=== PATIENT | male | born 1945 | race Caucasian/White ===

== ENCOUNTER 2020-11-30 11:31 | Outpatient (CLI) | payer MEDICARE, SELFPAY | END 2020-11-30 11:32 | disposition home or self-care (01) | LOC: ANHCOVIDVC 11:31 | PROVIDERS: PCP Family Medicine | DX: Z23 Encounter for immunization (principal) | CPT/HCPCS: 0001A; 91300 ==

== ENCOUNTER → 2020-12-09 10:25 | Outpatient (CLI) | payer MEDICARE, SELFPAY ==
--- NOTE | ~2020-12-09 | CT_ITS ---
EXAMINATION: CT brain wo con DATE: 12/09/2020 10:49 INDICATION: Headache. TECHNIQUE: Computed tomography (CT) of the head was performed without intravenous contrast. The mA wa s adjusted according to patient size. Iterative reconstruction technique was employed. The dose-lengt h product was 599.57 mGy-cm. COMPARISON: Head CT 11/16/2017 FINDINGS: There are scattered areas of low attenuation in the cerebral white matter, which is within normal limits for the patient's age. There is no intracranial hemorrhage, acute infarction, or abnorm al intracranial mass lesion. The ventricles are normal in size. There is mild mucosal thickening in t he paranasal sinuses. The mastoid air cells are normal. The orbits are normal. IMPRESSION: 1. Normal aging brain. Reviewed, dictated and finalized at location A. IMPRESSION: 1. Normal aging brain.
== END ==
PROVIDERS: PCP Family Medicine; Visit Provider Physician Assistant
DX: R51.9 Headache, unspecified (principal); I10 Essential (primary) hypertension; Z86.73 Personal history of transient ischemic attack (TIA), and cerebral infarction without residual deficits
CPT/HCPCS: 70450

== ENCOUNTER 2020-12-21 11:32 | Outpatient (CLI) | payer MEDICARE, SELFPAY | END 2020-12-21 11:33 | disposition home or self-care (01) | LOC: ANHCOVIDVC 11:32 | PROVIDERS: PCP Family Medicine | DX: Z23 Encounter for immunization (principal) | CPT/HCPCS: 0002A; 91300 ==

== ENCOUNTER 2021-07-29 13:34 | Outpatient (RCR) | payer MEDICARE, SELFPAY ==
[2021-07-29 14:14] VITALS: BP 112/65; PULSE 59; RESP 20; TEMP 36.5; O2SAT 98
[2021-07-29] MEDS: ACETAMINOPHEN 325 MG TABLET 650 MG PO (14:17)
[2021-07-29] MEDS: diphenhydrAMINE HCl CAP 25 MG CAPSULE PO (14:17)
[2021-07-29] MEDS: FAMOTIDINE 20 MG TABLET PO (14:17)
--- NOTE | 2021-07-29 15:14 | PC.NURSE ---
Patient received both Vidaao vaccines in November 2020
[2021-07-29 16:19] VITALS: BP 108/66; PULSE 58; RESP 20; TEMP 36.3; O2SAT 98
--- NOTE | 2021-07-30 13:33 | PC.NURSE ---
Attempted to call patient to follow-up regarding COVID antibody infusion yesterday. Patient was unavailable and a voicemail was left with a call back number for infusion center.
== END 2021-07-29 15:44 | disposition home or self-care (01) ==
LOC: AMCINF 13:34
PROVIDERS: PCP Physician Assistant; Referring Provider Physician Assistant; Visit Provider Internal Medicine Hematology & Oncology
DX: Z23 Encounter for immunization (principal); U07.1 COVID-19; I10 Essential (primary) hypertension; I25.10 Atherosclerotic heart disease of native coronary artery without angina pectoris; E11.9 Type 2 diabetes mellitus without complications
CPT/HCPCS: A9270; M0243; Q0243

== ENCOUNTER → 2021-09-16 12:08 | Outpatient (CLI) | payer MEDICARE, SELFPAY ==
--- NOTE | ~2021-09-16 | MR_ITS ---
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 Right facial numbness. TECHNIQUE: Magnetic resonance imaging (MRI) of the brain and brainstem was performed without and with 15 cc MultiHance intravenous contrast. Sequences included sagittal and axial T1-weighted SE, axial diffusion-weighted FS SE, axial T2*-weighted GRE, axial T2-weighted FLAIR Propeller, and axial T2-sita ghted Propeller. Apparent diffusion coefficient (ADC) maps were created. COMPARISON: MRI dated 11/17/[address] dated 12/09/2020 FINDINGS: The brain volume and ventricular system are within normal limits. The brain parenchymal si gnal intensity pattern and myers/white matter is normal and there is no evidence of hemorrhage, space occupying masses or infarctions. There are scattered mild periventricular and subcortical white matte r changes, most likely related to small vessel ischemic disease (microangiopathy). The flow signal voids of the major arterial structures about the [place] and within the dirk r dural venous sinuses appear grossly unremarkable and patent. The seventh and eighth cranial nerve complexes are normal. The mid sagittal image demonstrates a normal craniovertebral junction and jamel us callosum. The paranasal sinuses are grossly unremarkable. No abnormal contrast enhancement was appreciated. IMPRESSION: 1: No acute intracranial abnormality. 2: Chronic age-related findings. Reviewed, dictated and finalized at location A. D PREVENTION ANALYST
[2021-09-16 12:37] LABS: Estimated Glomerular Filt Rate 59
== END ==
PROVIDERS: PCP Physician Assistant
DX: R51.9 Headache, unspecified (principal); R20.0 Anesthesia of skin
CPT/HCPCS: 70553; A9577

== ENCOUNTER → 2022-05-25 14:48 | Outpatient (CLI) | payer MEDICARE, SELFPAY ==
--- NOTE | ~2022-05-25 | XR_ITS ---
EXAM: XR hip BI 2V w AP pelvis DATE: 05/25/2022 15:17 HISTORY: M25.551 - Pain in right hip . COMPARISON: 1019. FINDINGS: Normal mineralization. No fracture or dislocation. No lytic or blastic lesion. Mild superi or hip joint space narrowing, slightly greater on the right. Degenerative changes in the lower lumbar spine and pubic symphysis. Scattered pelvic enthesopathy. No erosion or periosteal change. Surgical clips or inflammatory markers over the midline pelvis. IMPRESSION: Mild bilateral hip osteoarthritis, slightly worse on the right. Reviewed, dictated and finalized at location K.
--- NOTE | ~2022-05-25 | XR_ITS ---
EXAMINATION: XR ankle RT min 3V, XR foot RT min 3V DATE: 05/25/2022 15:17 INDICATION: Right foot and ankle pain TECHNIQUE: 1. Anteroposterior, mortise, additional oblique and lateral view of the right ankle were obtained. 2. Dorsoplantar, two oblique and lateral views of the right foot were obtained. COMPARISON: None. FINDINGS: Diffuse osteopenia. Alignment of the right foot and ankle is normal. No fracture or osteochondral les ion. Prominent heterotopic ossification along the medial malleolus likely sequela of chronic deltoid ligament sprain. Mild osteoarthritis at the tibiotalar, first metatarsophalangeal and multiple tarsal metatarsal and interphalangeal joints. No ankle joint effusion. The soft tissues are unremarkable. IMPRESSION: 1. Mild polyarticular osteoarthritis at the right ankle, mid and forefoot. No acute osseous abnormali ty. 2. Prominent heterotopic ossification near the tip the medial malleolus likely sequela of chronic med ial ankle sprain. Reviewed, dictated and finalized at location A. IMPRESSION: 1. Mild polyarticular osteoarthritis at the right ankle, mid and forefoot. No a cute osseous abnormality. 2. Prominent heterotopic ossification near the tip the medial malleolus likely sequela of chronic medial ankle sprain.
== END ==
PROVIDERS: PCP Physician Assistant; Visit Provider Physician Assistant
DX: M16.0 Bilateral primary osteoarthritis of hip (principal); M19.071 Primary osteoarthritis, right ankle and foot
CPT/HCPCS: 73521; 73610; 73630

== ENCOUNTER 2022-07-02 17:51 | Observation (INO) | payer MEDICARE, SELFPAY ==
[2022-07-02] VITALS (8 sets, daily range): BP systolic 115–172; BP diastolic 53–76; PULSE 65–79; RESP 9–20; TEMP 36.4–36.6; O2SAT 96–100; BMI 26.1
--- NOTE | ~2022-07-02 | CT_ITS ---
EXAMINATION: CT abdomen pelvis wo con DATE: 07/02/2022 20:50 INDICATION: leukocytosis, low abdominal pain, nausea TECHNIQUE: Computed tomography (CT) of the abdomen and pelvis was performed without intravenous contr ast. Automated exposure control and iterative reconstruction technique were employed. The dose-length product was 471.78 mGy-cm. COMPARISON: 02/05/2016. FINDINGS: Lower thorax: Senescent change. Dependent atelectasis. Moderate hiatal hernia. Liver: Normal. Biliary/Gallbladder: Gallbladder is normal. No bile duct dilation. Pancreas: No mass or duct dilation. Spleen: Normal. Adrenals: 9 mm indeterminate right adrenal lesion, probably benign, requires no additional follow-up per ACR recommendations. Kidneys: Marked bilateral perinephric stranding. Mild bilateral hydronephrosis and periureteral stran ding, greater on the right. No suspicious mass. No obstructing stone. GI tract: No small or large bowel dilation. Appendix not visualized. Diverticulosis without diverticu litis. Mesentery/Peritoneum: No ascites, mass, or free air. Retroperitoneum: No mass. Atherosclerotic abdominal aortic and/or arterial calcifications. Pelvis: Marked prostatomegaly. Solis catheter in place. Prostate implants. The bladder is decompresse d and therefore not well evaluated. Soft Tissues: Soft tissues and body wall unremarkable. Bones: No acute osseous finding. IMPRESSION: Bilateral renal and collecting system stranding/inflammation may reflect ascending infection, with or without pyelonephritis. Reviewed, dictated and finalized at location K. IMPRESSION: Bilateral renal and collecting system stranding/inflammation may reflect ascend ing infection, with or without pyelonephritis.
--- NOTE | 2022-07-02 18:23 | ED.MALEGU ---
HPI - Male Genitourinary General Chief complaint: Urogenital-Male Stated complaint: inability to urinate Time Seen by Provider: 07/02/22 18:14 Source: patient and RN notes reviewed Mode of arrival: ambulatory Limitations: no limitations History of Present Illness HPI Narrative: This is a 77 year old male with history of BPH who presents for evaluation of difficulty urinating. He states starting around midnight he develop increased urgency and frequency to urinate. He describes decreased stream and he was having to strain to urinate. Throughout the night, he reports having to urinate every 10 minutes and he was only able to dribble urine. Today at 3 pm he felt like he needed to urinate but he was unable to urinate at all. He has been having lower abdominal pain and lower back pain today. He denies fever, chills, nausea or vomiting. He reports previous history of urinary retention. He states he feels like he has a urinary tract infection. Nursing staff reports patient had over 600 ml on bladder scan. Related Data Home Medications Medication Instructions Recorded Confirmed aspirin 81 mg tablet,delayed 81 mg PO DAILY 10/29/19 05/25/22 release coenzyme Q10 200 mg capsule 200 mg PO DAILY 10/29/19 05/25/22 multivitamin 1 tablet PO DAILY 10/29/19 05/25/22 Allergies Allergy/AdvReac Type Severity Reaction Status Date / Time dutasteride Allergy Unknown Unknown Verified 07/02/22 18:06 Iodinated Contrast Media Allergy Unknown Vomiting Verified 07/02/22 18:06 iodine Allergy Unknown Vomiting Verified 07/02/22 18:06 Mfqvoqt-RVI-GvM Reductase Allergy Unknown Muscle Verified 07/02/22 18:06 Inhibitor Cramps [Urajvpr-Hum-Cwi Reductase Inhibitor] codeine AdvReac Mild NAUSEA Verified 07/02/22 18:06 Contrast Media AdvReac Intermediate NAUSEA AND Uncoded 07/02/22 18:06 VOMITING AND ELEVATES BP Review of Systems Review of Systems: All systems reviewed & are unremarkable except as noted in HPI and below Constitutional: Constitutional: Denies chills, Denies fatigue and Denies fever(s) Cardiovascular: Cardiovascular: Denies chest pain Gastrointestinal: Gastrointestinal: Reports abdominal pain, Denies nausea and Denies vomiting Genitourinary: Genitourinary: Denies hematuria, Reports oliguria, Denies dysuria and Reports urinary frequency Musculoskeletal: Musculoskeletal: Reports back pain PMFSH Past Medical History Medical History (Updated 07/02/22 @ 21:43 by Addie Red MD) Elevated PSA Essential (primary) hypertension ROSINA (obstructive sleep apnea) Type 2 diabetes mellitus without complication, without long-term current use of insulin Urinary retention Surgical History Surgical History (Updated 07/02/22 @ 19:07 by Addie Red MD) H/O umbilical hernia repair Family History Family History Father Diabetes mellitus Family history of lung disease Hypertension Family history of chronic obstructive pulmonary disease Family history of type 2 diabetes mellitus Mother Hypertension Social History Social History Smoking packs per day: 1 Smoking cigarettes per day: 20.0 Years smoked: 20 Smoking pack-years: 20.00 Smoking status: Former smoker Tobacco type: cigarettes Second hand tobacco smoke exposure: No Smoking end date: 09/25/83 Alcohol intake: current Drinks per week: 14 Substance use: never Substance use type: does not use Gender identity (if verbalized by the patient): Male Spiritual care concerns: No Exam Const: General: no acute distress and alert Nutritional Appearance: well nourished Limitations: no limitations HENMT: Head: normal to inspection Eyes: EOM: EOMs intact bilaterally Neck: Neck: normal visual inspection Chest: Chest palpation & inspection: normal inspection of the chest Resp: Effort & Inspection:
[2022-07-02 18:38] LABS: Add Urine Microscopic? YES; Appearance Urine Clear (Clear); Bilirubin Urine Negative (Negative); Blood Urine 1+ (Negative); Color Urine Yellow (Yellow); Glucose Urine UA Negative (Negative); Ketones Urine Negative (Negative); Leukocyte Esterase Ur Negative LEU/UL (Negative); Mucus Urine Rare /lpf; Nitrate Urine Negative (Negative); Protein Urine Negative (Negative); Specific Grav Ur 1.011 (1.001-1.035); Urobilinogen Urine Negative mg/dL (<2.0); WBC Urine 0-3 /hpf
[2022-07-02 19:03] LABS: Basophils Percent Auto 0.3 % (0.2-1.2); Eosinophils Percent Auto 0.1 % (0-4.4); Hematocrit 46.5 % (42.0-52.0); Hemoglobin 16.2 g/dL (14.0-18.0); Immature Granulocyte Absolute 0.07 K/mm3 (0.00-0.031); Immature Granulocyte Percent A 0.4 % (0-0.5); Lymphocytes Absolute Auto 0.52 K/mm3 (0.9-3.2); Lymphocytes Percent Auto 3.3 % (18.3-44.2); Mean Corpuscular HGB Conc 34.8 g/dl (32-36); Mean Corpuscular Hemoglobin 29.6 pg (26-34); Mean Corpuscular Volume 84.9 fl (80-100); Mean Platelet Volume 9.2 fl (7.4-10.4); Monocytes Absolute Auto 0.8 K/mm3 (0.1-0.6); Monocytes Percent Auto 4.7 % (2.6-8.5); Neutrophils Absolute Auto 14.6 K/mm3 (1.3-6.7); Neutrophils Percent Auto 91.2 % (45.5-73.1); Platelet Count Result 216 k/mm3 (150-375); Red Blood Count 5.48 M/mm3 (4.6-6.20); Red Cell Distribution Width 12.6 % (11.5-14.5)
[2022-07-02 19:12] LABS: Alanine Aminotransferase 26 U/L (6-50); Albumin Level 4.4 g/dL (3.5-5.1); Alkaline Phosphatase 56 U/L (38-126); Anion Gap 14 mmol/L (8-16); Aspartate Amino Transferase 25 U/L (17-59); Blood Urea Nitrogen 17 mg/dL (9-20); Carbon Dioxide 23 mmol/L (22-30); Chloride 96 mmol/L (98-107); Estimated CRCL calculation 50 ml/min; Estimated Glomerular Filt Rate > 60; Glucose 175 mg/dL (65-110); Potassium 3.5 mmol/L (3.4-5.0); Sodium 133 mmol/L (137-145)
[2022-07-02] MEDS: SODIUM CHLORIDE 0.9% IV 1,000 ML 999 ML IV CONT (21:33)
[2022-07-02 22:19] LABS: SARS-CoV-2 RNA PCR Negative
--- NOTE | 2022-07-02 22:47 | ADMGEN ---
This patient, Brown Gifford, was admitted to [facility] Surg Room 302-01. Patient/family oriented to hospital policies and general routines including ID bracelet, bed and alarms, visiting hours, pain management, procedures, bathroom and other care routines, personal items, smoking policy, room service/diet, and visiting hours. Information on how to activate the Rapid Response Team has been discussed. Patient/Family are encouraged to report perceived risks to care and to ask questions if they do not understand what they are told or what they should do.
[2022-07-02] MEDS: SODIUM CHLORIDE 0.9% IV 1,000 ML 125 ML IV CONT (23:23)
[2022-07-03 06:00] VITALS: BP 108/48; PULSE 59; RESP 16; TEMP 36.4; O2SAT 96
[2022-07-03 07:25] LABS: Basophils Percent Auto 0.3 % (0.2-1.2); Eosinophils Absolute Auto 0.1 K/mm3 (0-0.3); Eosinophils Percent Auto 0.9 % (0-4.4); Hematocrit 43.5 % (42.0-52.0); Hemoglobin 14.7 g/dL (14.0-18.0); Immature Granulocyte Absolute 0.06 K/mm3 (0.00-0.031); Immature Granulocyte Percent A 0.5 % (0-0.5); Lymphocytes Absolute Auto 1.83 K/mm3 (0.9-3.2); Lymphocytes Percent Auto 15.7 % (18.3-44.2); Mean Corpuscular HGB Conc 33.8 g/dl (32-36); Mean Corpuscular Hemoglobin 29.6 pg (26-34); Mean Corpuscular Volume 87.7 fl (80-100); Mean Platelet Volume 9.5 fl (7.4-10.4); Monocytes Absolute Auto 1.3 K/mm3 (0.1-0.6); Monocytes Percent Auto 11.1 % (2.6-8.5); Neutrophils Absolute Auto 8.3 K/mm3 (1.3-6.7); Neutrophils Percent Auto 71.5 % (45.5-73.1); Platelet Count Result 224 k/mm3 (150-375); Red Blood Count 4.96 M/mm3 (4.6-6.20); White Blood Count 11.7 K/mm3 (4.5-10.0)
[2022-07-03 07:33] LABS: Alanine Aminotransferase 20 U/L (6-50); Albumin Level 3.8 g/dL (3.5-5.1); Alkaline Phosphatase 45 U/L (38-126); Anion Gap 10 mmol/L (8-16); Aspartate Amino Transferase 20 U/L (17-59); Bilirubin,Total 0.8 mg/dL (0.2-1.3); Blood Urea Nitrogen 16 mg/dL (9-20); Calcium 8.6 mg/dL (8.4-10.2); Carbon Dioxide 30 mmol/L (22-30); Chloride 100 mmol/L (98-107); Estimated CRCL calculation 50 ml/min; Estimated Glomerular Filt Rate > 60; Glucose 119 mg/dL (65-110); Potassium 3.4 mmol/L (3.4-5.0); Sodium 140 mmol/L (137-145)
--- NOTE | 2022-07-03 09:17 | WPDURCON ---
Assessment and Plan Assessment and plan (1) Urinary retention: Code(s): R33.9 - Retention of urine, unspecified Status: Acute Plan 77M with hx of BPH presenting in urinary retention and potential signs of infection on UA and CT scan. - Continue delgado catheter and flomax. - Cr is normal at 1, and WBC improving today down to 11.7. - Would recommend PO antibiotics for home to cover for potential UTI from UA and CT scan. - Balance of care per primary team. Ok for discharge by urology when deemed appropriate by primary team. Plan for follow up for voiding trial. Urology Consult Note HPI Date Seen: 07/03/22 Requesting Physician: Carrie Chapa MD Primary Care Provider: Amanda Easley PA-C Consult Narrative Narrative: Brown Gifford is a 77 year old male with PMH of BPH who presented for ureinary retention. He is on flomax, and was having slowing of his urinary stream last night and got to the point that he was unable to urinate at all, and proceeded to have abdominal distension and pain. He has had retention prior. He presented to ED and a catheter was placed, and a significant amount of urine was noted through the catehter. Vitals wnl in ED, but WBC was [address] scan showed bilateral hydronephrosis with stranding around ureters and bladder pointing towards infection/inflammation, although UA was equivocal. [facility] Past Medical History Medical History (Updated 07/02/22 @ 21:43 by Addie Red MD) Elevated PSA Essential (primary) hypertension ROSINA (obstructive sleep apnea) Type 2 diabetes mellitus without complication, without long-term current use of insulin Urinary retention Surgical History Surgical History (Updated 07/02/22 @ 19:07 by Addie Red MD) H/O umbilical hernia repair Family History Family History Father Diabetes mellitus Family history of lung disease Hypertension Family history of chronic obstructive pulmonary disease Family history of type 2 diabetes mellitus Mother Hypertension Social History Social History Smoking packs per day: 1 Smoking cigarettes per day: 20.0 Years smoked: 20 Smoking pack-years: 20.00 Smoking status: Former smoker Second hand tobacco smoke exposure: No Alcohol intake: current Drinks per week: 14 Substance use: never Substance use type: does not use Gender identity (if verbalized by the patient): Male Spiritual care concerns: No Meds Home Medications and Allergies Home Medications Medication Instructions Recorded Confirmed Type multivitamin 1 tablet PO DAILY 10/29/19 07/02/22 History amlodipine 5 mg-benazepril 20 mg 1 cap PO QAM 07/02/22 07/02/22 History capsule indapamide 2.5 mg tablet 2.5 mg PO QAM 07/02/22 07/02/22 History metformin 500 mg tablet 500 mg PO QAM 07/02/22 07/02/22 History omeprazole 20 mg capsule,delayed 20 mg PO DAILY PRN Acid Reflux 07/02/22 07/02/22 History release pitavastatin calcium 2 mg tablet 1 mg PO QAM 07/02/22 07/02/22 History (Livalo) Allergies Allergy/AdvReac Type Severity Reaction Status Date / Time dutasteride Allergy Unknown Unknown Verified 07/02/22 18:06 Iodinated Contrast Media Allergy Unknown Vomiting Verified 07/02/22 18:06 iodine Allergy Unknown Vomiting Verified 07/02/22 18:06 [place]-AUP-PsZ Reductase Allergy Unknown Muscle Verified 07/02/22 18:06 Inhibitor Cramps [Qebahlq-Bld-Jti Reductase Inhibitor] codeine AdvReac Mild NAUSEA Verified 07/02/22 18:06 Contrast Media AdvReac Intermediate NAUSEA AND Uncoded 07/02/22 18:06 VOMITING AND ELEVATES BP Vital Signs Vital Signs - 24 hr 07/02/22 17:53 07/02/22 18:29 07/02/22 18:30 Temperature 36.4 C Pulse Rate 79 69 70 Respiratory Rate 20 15 11 L Blood Pressure 172/75 H 116/71 Pulse Oximetry 100 98 97 Oxygen Delivery Room Air 07/02/22 18:31 07/02/22
--- NOTE | 2022-07-03 10:15 | PM.SD2 ---
Same Day Admit/Disch: HPI History of Present Illness Chief complaint: acute urinary retention, bilateral hydronephrosis, Narrative: Brown Gifford is a 77 year old male With past medical history hypertension ROSINA, type 2 diabetes, urinary retention who presented to the ED with complaints difficulty urination. Patient stated that it started around before midnight on 07/02/2022. Patient stated that he got up to go the bathroom more frequently urinate a little bit. As the day progressed he was unable to get anything out and prompted him to come to the ED. Patient stated he started having severe back pain and abdominal pain. He stated that he was going to the bathroom every 8-10 minutes for 10 hours prior to arrival. He denied any hematuria however he did have some urgency frequency burning and pain. He stated that after they put the urinary catheter in he had instant relief of pack and bladder pain. He denied any chest pain, shortness of breath, nausea, vomiting, diarrhea, constipation, lightheadedness, dizziness, sweats, fevers, chills. Abdominal CT showed urinary retention. Patient was bladder scanned and there was 600ml Present. Upon insertion of the catheter 1600ml was drained. WBC was also noted to be elevated. Ceftriaxone was started. Urology has been consulted. [facility] Past Medical History Medical History Elevated PSA Essential (primary) hypertension ROSINA (obstructive sleep apnea) Type 2 diabetes mellitus without complication, without long-term current use of insulin Urinary retention Surgical History Surgical History H/O umbilical hernia repair Family History Family History Father Diabetes mellitus Family history of lung disease Hypertension Family history of chronic obstructive pulmonary disease Family history of type 2 diabetes mellitus Mother Hypertension Social History Social History (Updated 07/03/22 @ 10:22 by INOCENCIA Matamoros) Social History: Patient lives at home with his Meena will be a surrogate. Patient has 2 kids with no pets at home. Patient wishes to be a full code at this time Smoking packs per day: 1 Smoking cigarettes per day: 20.0 Years smoked: 20 Smoking pack-years: 20.00 Smoking status: Former smoker Second hand tobacco smoke exposure: No Smoking end date: 09/25/85 Alcohol intake: current Drinks per week: 14 Substance use: never Substance use type: does not use Living arrangements: with family Occupation/Education: retired Additional occupation/education comments: [employer] Gender identity (if verbalized by the patient): Male Sexual Orientation (if Verbalized by the Patient): Straight or Heterosexual Spiritual care concerns: No Same Day Admit/Disch: Med Pre-admit Medications Home Medications Medication Instructions Recorded Confirmed Type multivitamin 1 tablet PO DAILY 10/29/19 07/02/22 History amlodipine 5 mg-benazepril 20 mg 1 cap PO QAM 07/02/22 07/02/22 History capsule indapamide 2.5 mg tablet 2.5 mg PO QAM 07/02/22 07/02/22 History metformin 500 mg tablet 500 mg PO QAM 07/02/22 07/02/22 History omeprazole 20 mg capsule,delayed 20 mg PO DAILY PRN Acid Reflux 07/02/22 07/02/22 History release pitavastatin calcium 2 mg tablet 1 mg PO QAM 07/02/22 07/02/22 History (Livalo) Exam Const: General: cooperative, healthy appearing, no acute distress, well developed, alert, awake and well nourished Nutritional Appearance: well nourished Orientation/consciousness: patient oriented x3 Limitations: no limitations HENMT: Head: normal to inspection Ears: hearing grossly normal bilaterally Face/Nose/Sinus: Normal external nose present Mouth: Yes Normal oral and palatal mucosa present, Yes lip normal and Yes tongue normal Teeth and gingiva: abnormal tooth
== END 2022-07-03 12:16 | disposition home or self-care (01) ==
LOC: ANHED 21:43 → ANH3MEDSUR 21:48
PROVIDERS: Emergency Medicine; Admitting Provider Internal Medicine; Emergency Provider General Practice; PCP Physician Assistant; Visit Provider Internal Medicine
DX: N13.30 Unspecified hydronephrosis (principal); N40.1 Benign prostatic hyperplasia with lower urinary tract symptoms; R33.9 Retention of urine, unspecified; E11.9 Type 2 diabetes mellitus without complications; I10 Essential (primary) hypertension; R39.89 Other symptoms and signs involving the genitourinary system; R97.20 Elevated prostate specific antigen [PSA]; G47.33 Obstructive sleep apnea (adult) (pediatric); F10.90 Alcohol use, unspecified, uncomplicated; Z79.82 Long term (current) use of aspirin; Z79.84 Long term (current) use of oral hypoglycemic drugs; Z87.891 Personal history of nicotine dependence; Z79.899 Other long term (current) drug therapy; Z83.3 Family history of diabetes mellitus; Z83.6 Family history of other diseases of the respiratory system; Z82.49 Family history of ischemic heart disease and other diseases of the circulatory system
CPT/HCPCS: 36415; 74176; 80053; 81001; 85025; 87086; 96361; 96365; 99285; C9803; G0378; J0696; J7030; U0003; U0005

== ENCOUNTER 2022-07-12 02:29 | Emergency (ER) | payer MEDICARE, SELFPAY ==
--- NOTE | 2022-07-12 02:45 | ED.GENADULT ---
HPI - General Adult General Chief complaint: Urogenital-Male Stated complaint: urinary retention Time Seen by Provider: 07/12/22 02:36 History of Present Illness HPI narrative: 77-year-old male presenting to the emergency department for evaluation of urinary retention. Patient does have a history of urinary retention and just had a Solis catheter removed at Dr Miranda's office today. Solis catheter had been in place for approximately 10 days. At the urology office patient was able to urinate a small amount and was discharged to home. Patient states since having the Solis catheter removed at 2 PM he has only had a small amount of urine. On bedside ultrasound patient had greater than 500 mL of retained urine. Patient has a past medical history of hyperlipidemia, hypertension, type 2 diabetes, prior CVA and urinary retention. Patient had previously been on Flomax but has an adverse reaction and cannot take this medication Related Data Home Medications Medication Instructions Recorded Confirmed multivitamin 1 tablet PO DAILY 10/29/19 07/07/22 amlodipine 5 mg-benazepril 20 mg 1 cap PO QAM 07/02/22 07/07/22 capsule indapamide 2.5 mg tablet 2.5 mg PO QAM 07/02/22 07/07/22 metformin 500 mg tablet 500 mg PO QAM 07/02/22 07/07/22 omeprazole 20 mg capsule,delayed 20 mg PO DAILY PRN Acid Reflux 07/02/22 07/07/22 release pitavastatin calcium 2 mg tablet 1 mg PO QAM 07/02/22 07/07/22 (Livalo) Allergies Allergy/AdvReac Type Severity Reaction Status Date / Time dutasteride Allergy Unknown Unknown Verified 07/07/22 09:55 Iodinated Contrast Media Allergy Unknown Vomiting Verified 07/07/22 09:55 iodine Allergy Unknown Vomiting Verified 07/07/22 09:55 Dnuvlgw-IJV-AuO Reductase Allergy Unknown Muscle Verified 07/07/22 09:55 Inhibitor Cramps [Dwtmdqb-Vvd-Hfd Reductase Inhibitor] tamsulosin [From Flomax] AdvReac Intermediate Palpitation Verified 07/07/22 10:24 s codeine AdvReac Mild NAUSEA Verified 07/07/22 09:55 Contrast Media AdvReac Intermediate NAUSEA AND Uncoded 07/02/22 18:06 VOMITING AND ELEVATES BP Review of Systems Review of Systems: CONSTITUTIONAL: Denies fever, chills, or sweats. EYES: Denies visual changes, redness, or discharge. ENT: Denies rhinorrhea, congestion, sore throat, or otalgia. CARDIOVASCULAR: Denies chest pain, palpitations, or edema. RESPIRATORY: Denies cough or dyspnea. GASTROINTESTINAL: Denies abdominal pain, nausea, vomiting, or diarrhea. GENITOURINARY: See HPI SKIN: Denies rash or itching. MUSCULOSKELETAL: Denies back pain, joint pain, or myalgia. NEUROLOGIC: Denies headache, numbness, or weakness. [facility] Past Medical History Medical History Elevated PSA Essential (primary) hypertension ROSINA (obstructive sleep apnea) Type 2 diabetes mellitus without complication, without long-term current use of insulin Urinary retention Surgical History Surgical History H/O umbilical hernia repair Family History Family History Father Diabetes mellitus Family history of lung disease Hypertension Family history of chronic obstructive pulmonary disease Family history of type 2 diabetes mellitus Mother Hypertension Social History Social History Social History: Patient lives at home with his Meena will be a surrogate. Patient has 2 kids with no pets at home. 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
[2022-07-12 02:46] VITALS: PULSE 59; O2SAT 99
[2022-07-12 03:45] LABS: Add Urine Microscopic? YES; Appearance Urine Cloudy (Clear); Bacteria Urine 4+ /hpf; Bilirubin Urine Negative (Negative); Blood Urine 2+ (Negative); Color Urine Yellow (Yellow); Glucose Urine UA 2+ mg/dL (Negative); Ketones Urine Negative (Negative); Leukocyte Esterase Ur Negative LEU/UL (Negative); Mucus Urine Heavy /lpf; Nitrate Urine Negative (Negative); Protein Urine Negative (Negative); Urobilinogen Urine Negative mg/dL (<2.0)
[2022-07-12 03:53] VITALS: PULSE 57; RESP 14; O2SAT 96
[2022-07-12 04:08] VITALS: PULSE 56; RESP 15; O2SAT 97
[2022-07-12 04:15] VITALS: BP 124/68; PULSE 58; RESP 13; O2SAT 99
== END 2022-07-12 04:55 | disposition home or self-care (01) ==
PROVIDERS: Emergency Provider Emergency Medicine; PCP Family Medicine
DX: R33.9 Retention of urine, unspecified (principal); E78.5 Hyperlipidemia, unspecified; I10 Essential (primary) hypertension; E11.9 Type 2 diabetes mellitus without complications; Z86.73 Personal history of transient ischemic attack (TIA), and cerebral infarction without residual deficits; G47.33 Obstructive sleep apnea (adult) (pediatric); Z79.84 Long term (current) use of oral hypoglycemic drugs; Z87.891 Personal history of nicotine dependence
CPT/HCPCS: 51702; 81001; 87077; 87086; 87186; 99283

== ENCOUNTER 2022-07-12 17:18 | Inpatient (IN) | payer MEDICARE, SELFPAY ==
--- NOTE | ~2022-07-12 | CT_ITS ---
EXAMINATION: CT abdomen pelvis wo con DATE: 07/13/2022 11:03 INDICATION: Sepsis. Urinary tract infection. TECHNIQUE: Computed tomography (CT) of the abdomen and pelvis was performed without intravenous contr ast. Automated exposure control and iterative reconstruction technique were employed. The dose-length product was 510.48 mGy-cm. COMPARISON: CT abdomen and pelvis 07/02/2022 FINDINGS: The visualized portions of the lung bases demonstrate mild atelectasis. A calcified left veda ng nodule is consistent with old granulomatous disease. No pleural effusion. The heart size is normal . No pericardial effusion. There are coronary artery calcifications. There is diffuse hepatic steatos is. The gallbladder is normal in size. There is a small sliding hiatal hernia. The spleen, pancreas, and adrenal glands are normal. There is cortical thinning of the kidneys. There is no urolithiasis. T he bladder is decompressed by a Solis catheter. The prostate is moderately enlarged. There are brachy therapy seeds in the prostate. There are bilateral inguinal hernias containing fat. There is divertic ulosis of the colon without evidence of diverticulitis. There are no dilated loops of bowel. The appe ndix is not visualized. There are no pathologically enlarged lymph nodes. There is no free intraperit iglesias fluid. There is severe lumbar spondylosis. There is lumbar dextroscoliosis. IMPRESSION: 1. Bilateral inguinal hernias containing fat. 2. Small sliding hiatal hernia. 3. Diffuse hepatic steatosis. Reviewed, dictated and finalized at location B.
--- NOTE | ~2022-07-12 | XR_ITS ---
EXAMINATION: XR chest 2V DATE: 07/17/2022 19:44 INDICATION: Worsening leukocytosis and fever TECHNIQUE: AP and lateral views of the chest are obtained. COMPARISON: 07/12/2022 FINDINGS: The lungs are free of acute opacities. No pleural effusion or pneumothorax. The cardiomedia stinal silhouette is normal. There is mild thoracic spondylosis. IMPRESSION: 1. No acute cardiopulmonary abnormality. Reviewed, dictated and finalized at location F.
--- NOTE | ~2022-07-12 | XR_ITS ---
EXAMINATION: XR chest 1V portable Exam Date/Time: 07/12/2022 18:42 CDT HISTORY: cough, fever today hx htn, diabetic Comparison: 12/14/2017. RESULT: Lines, tubes, and devices: None. Lungs and pleura: Senescent change, otherwise clear. Cardiomediastinal silhouette: Stable. Other: No acute osseous or upper abdominal finding. IMPRESSION: No acute cardiopulmonary process. Reviewed, dictated and finalized at location K.
[2022-07-12 17:22] VITALS: BP 138/62; PULSE 95; RESP 14; TEMP 37.3; O2SAT 99
[2022-07-12 17:48] LABS: Basophils Absolute Auto 0.1 K/mm3 (0.0-0.1); Basophils Percent Auto 0.4 % (0.2-1.2); Eosinophils Absolute Auto 0.1 K/mm3 (0-0.3); Eosinophils Percent Auto 0.5 % (0-4.4); Hematocrit 45.9 % (42.0-52.0); Hemoglobin 15.6 g/dL (14.0-18.0); Immature Granulocyte Absolute 0.11 K/mm3 (0.00-0.031); Immature Granulocyte Percent A 0.5 % (0-0.5); Lymphocytes Absolute Auto 1.15 K/mm3 (0.9-3.2); Lymphocytes Percent Auto 5.4 % (18.3-44.2); Mean Corpuscular Hemoglobin 29.7 pg (26-34); Mean Corpuscular Volume 87.3 fl (80-100); Monocytes Absolute Auto 0.8 K/mm3 (0.1-0.6); Monocytes Percent Auto 3.9 % (2.6-8.5); Neutrophils Absolute Auto 18.9 K/mm3 (1.3-6.7); Neutrophils Percent Auto 89.3 % (45.5-73.1); Platelet Count Result 304 k/mm3 (150-375); Red Blood Count 5.26 M/mm3 (4.6-6.20); Red Cell Distribution Width 12.7 % (11.5-14.5); White Blood Count 21.2 K/mm3 (4.5-10.0)
[2022-07-12 17:52] LABS: Anion Gap 11 mmol/L (8-16); Blood Urea Nitrogen 21 mg/dL (9-20); Calcium 9.2 mg/dL (8.4-10.2); Carbon Dioxide 25 mmol/L (22-30); Chloride 98 mmol/L (98-107); Estimated CRCL calculation 55 ml/min; Estimated Glomerular Filt Rate > 60; Glucose 163 mg/dL (65-110); Potassium 3.8 mmol/L (3.4-5.0); Sodium 134 mmol/L (137-145)
[2022-07-12 18:04] VITALS: BP 158/71; PULSE 85; RESP 16; TEMP 38.3; O2SAT 99
[2022-07-12 18:19] LABS: Add Urine Microscopic? YES; Appearance Urine Cloudy (Clear); Bacteria Urine Trace /hpf; Bilirubin Urine Negative (Negative); Blood Urine 3+ (Negative); Color Urine Yellow (Yellow); Glucose Urine UA Negative (Negative); Ketones Urine Negative (Negative); Leukocyte Esterase Ur 3+ LEU/UL (Negative); Mucus Urine Rare /lpf; Nitrate Urine Positive (Negative); Protein Urine Negative (Negative); RBC Urine >75 /hpf (0-2); Specific Grav Ur 1.019 (1.001-1.035); Urobilinogen Urine Negative mg/dL (<2.0); WBC Urine >75 /hpf
--- NOTE | 2022-07-12 18:35 | ED.GENADULT ---
HPI - General Adult General Chief complaint: Urogenital-Male Stated complaint: in and out of ED for the past few days elevated WB Time Seen by Provider: 07/12/22 18:10 Source: patient Mode of arrival: ambulatory Limitations: no limitations History of Present Illness HPI narrative: Patient presents complaints of episode at home of feeling chilled following Solis catheter today in the ER. Patient recently had Solis catheter removed by urologist but was unable to urinate so return to the ER with Solis catheter placed again. Once patient was at home after completing a few errands patient states he felt extremely cold and was shivering. Started having episodes of coughing which he states is normal for him. Presents stating feeling better but wanted to be checked due to chills and possible fever. Denies cough, difficulty breathing or pain anywhere aside from the meatus of urethra. Related Data Home Medications Medication Instructions Recorded Confirmed multivitamin 1 tablet PO DAILY 10/29/19 07/07/22 amlodipine 5 mg-benazepril 20 mg 1 cap PO QAM 07/02/22 07/07/22 capsule indapamide 2.5 mg tablet 2.5 mg PO QAM 07/02/22 07/07/22 metformin 500 mg tablet 500 mg PO QAM 07/02/22 07/07/22 omeprazole 20 mg capsule,delayed 20 mg PO DAILY PRN Acid Reflux 07/02/22 07/07/22 release pitavastatin calcium 2 mg tablet 1 mg PO QAM 07/02/22 07/07/22 (Livalo) Allergies Allergy/AdvReac Type Severity Reaction Status Date / Time dutasteride Allergy Unknown Unknown Verified 07/12/22 18:06 Iodinated Contrast Media Allergy Unknown Vomiting Verified 07/12/22 18:06 iodine Allergy Unknown Vomiting Verified 07/12/22 18:06 Huxlkxw-BWJ-UvZ Reductase Allergy Unknown Muscle Verified 07/12/22 18:06 Inhibitor Cramps [Jdvkulj-Nun-Upe Reductase Inhibitor] tamsulosin [From Flomax] AdvReac Intermediate Palpitation Verified 07/12/22 18:06 s codeine AdvReac Mild NAUSEA Verified 07/12/22 18:06 Contrast Media AdvReac Intermediate NAUSEA AND Uncoded 07/12/22 18:06 VOMITING AND ELEVATES BP Review of Systems Review of Systems: CONSTITUTIONAL: Possible fever, he felt chilled but did not take temperature at home. EYES: Denies visual changes, redness, or discharge. ENT: Denies rhinorrhea, congestion, sore throat, or otalgia. CARDIOVASCULAR: Denies chest pain, palpitations, or edema. RESPIRATORY: Coughing episode at home that lasted several minutes. Denies dyspnea. GASTROINTESTINAL: Denies abdominal pain, nausea, vomiting, or diarrhea. GENITOURINARY: Pain from Solis catheter to meatus of urethra. Denies dysuria or hematuria. SKIN: Denies rash or itching. MUSCULOSKELETAL: Denies back pain, joint pain, or myalgia. NEUROLOGIC: Denies headache, numbness, or weakness. PSYCHIATRIC: Denies anxiety or depression. [facility], [facility] Past Medical History Medical History Elevated PSA Essential (primary) hypertension ROSINA (obstructive sleep apnea) Type 2 diabetes mellitus without complication, without long-term current use of insulin Urinary retention Surgical History Surgical History H/O umbilical hernia repair Family History Family History Father Diabetes mellitus Family history of lung disease Hypertension Family history of chronic obstructive pulmonary disease Family history of type 2 diabetes mellitus Mother Hypertension Social History Social History Social History: Patient lives at home with his Meena will be a surrogate. Patient has 2 kids with no pets at home. Patient wishes to be a full code at this time Smoking packs per day: 1 Smoking cigarettes per day: 20.0 Years smoked: 20 Smoking pack-years: 20.00 Smoking status: Former smoker Second hand tobacco smoke exposure: No Smoking end date: 09/25
[2022-07-12 18:45] VITALS: BP 132/61; PULSE 81; RESP 16; O2SAT 99
--- NOTE | 2022-07-12 18:45 | PC.NURSE ---
called lab at 18:45 to add flu A/B to covid swab
[2022-07-12] MEDS: ACETAMINOPHEN 500 MG TABLET 1000 MG PO (18:48)
[2022-07-12 19:01] LABS: Lactic Acid Reflex 1.9 mmol/L (0.7-2.0)
[2022-07-12 19:09] LABS: CRP 1.4 mg/dL (<1.0)
[2022-07-12 19:11] LABS: INR 1.1; Prothrombin Time 13.7 Seconds (11.1-14.7)
[2022-07-12 19:13] LABS: Partial Thromboplastin Time 29.3 SECONDS (22.3-36.8)
[2022-07-12 19:15] LABS: Influenza A QL RT-PCR Negative (Negative); Influenza B QL RT-PCR Negative (Negative); SARS-CoV-2 RNA PCR Negative
[2022-07-12 19:29] VITALS: BP 130/68; PULSE 82; RESP 16; TEMP 37.3; O2SAT 98
[2022-07-12] MEDS: SODIUM CHLORIDE 0.9% IV 1,000 ML 75 ML IV CONT (19:44)
[2022-07-12] MEDS: SODIUM CHLORIDE 0.9% IV 1,000 ML 125 ML IV CONT (20:07)
[2022-07-12 20:09] VITALS: BP 108/65; PULSE 80; RESP 16; O2SAT 100
--- NOTE | 2022-07-12 22:22 | ADMGEN ---
This patient, Brown Gifford, was admitted to Medical Room 344-01. Patient/family oriented to hospital policies and general routines including ID bracelet, bed and alarms, visiting hours, pain management, procedures, bathroom and other care routines, personal items, smoking policy, room service/diet, and visiting hours. Information on how to activate the Rapid Response Team has been discussed. Patient/Family are encouraged to report perceived risks to care and to ask questions if they do not understand what they are told or what they should do.
[2022-07-12 22:38] VITALS: BMI 26.9
[2022-07-12 22:39] VITALS: BP 98/48; PULSE 86; RESP 18; TEMP 36.6; O2SAT 97
[2022-07-12] MEDS: ACETAMINOPHEN 325 MG TABLET 650 MG PO (22:48)
--- NOTE | 2022-07-12 23:31 | PM.IMHP ---
H&P: HPI History of Present Illness Date/Time: 07/12/22 23:31 Chief Complaint: Fevers, pain at the tip of his penis Narrative: 77-year-old male with a past medical history of essential hypertension, obstructive sleep apnea, type 2 diabetes mellitus BPH with urinary retention who presented to the ER for the 3rd time in 10 days due to urinary symptoms. The patient initially presented to the ER on the due to urinary retention and CT scan at that time demonstrated bilateral renal and collecting system stranding and inflammation which could represent infection. The patient also had associated leukocytosis. However his UA was not suggestive of infection. He was started on cefdinir as a precaution at discharge. His urine culture came back negative. He was evaluated by Urology and they followed up with him in the office. Urology pulled the patient's catheter on the and he again had urinary retention and had to have Solis catheter replaced in the operations officer trust department hours. He was then discharged home. Shortly after returning home he began having chills and his put him to bed with a heating pad. He denied having any nausea or vomiting. He denies any abdominal pain. A he had been having flank pain back when he was initially given cefdinir but those symptoms resolved after the cefdinir and Solis catheter placement. He has not had any recurrent flank pain. He has been having normal bowel movements until 2 days ago at which time he had smaller bowel movements and less frequent. He denies any decreased appetite. He does report increased thirst. He arrived to the ER with fever of 100.9 and was complaining of pain to the tip of his penis. Patient's blood pressure were stable initially in the ER. He received IV fluids at 75 mL an hour in the ER. However his last blood pressure before heading up to the floor was trending down to 98 systolic. When he arrived to the floor I include East his fluid rate to 125 mL an hour. A blood pressures remained stable until 6 hours after arriving to the medical floor the patient called nursing staff into the room stating that he was nauseated in felt generally bad. They checked his blood pressures in his blood pressure dropped to 70/40. His heart rate was stable at 74. Subsequently I ordered 30 mL/kilos fluid bolus. Almost 3 cords away through the patient's fluid bolus patient's blood pressures had only improved to 80/50. I suspect the patient likely has Gram-negative bacteremia and will not improve his blood pressures without pressor support. Subsequently the patient has been transferred to the ICU. Peripheral dopamine has been ordered until central line can be placed. His CT of the abdomen pelvis was not repeated given his change in clinical condition the patient may benefit from repeat CT scan once blood pressures have stabilized with pressor therapy. Will place consult for Urology. the patient evidently only received maintenance fluids in the ER. Review of Systems Review of Systems: 12 systems were reviewed with pertinent positives and negatives per HPI. Except as documented in the HPI, all other systems were reviewed and are negative. [facility] Past Medical History Medical History (Updated 07/13/22 @ 07:11 by Rosibel Sheehan, DO) BPH with urinary obstruction Coronary artery disease Cryptogenic stroke Diastolic dysfunction Echocardiogram 03/2022: Mild concentric left ventricular wall hypertrophy, normal ventricular size, normal function with EF of 60%, grade 1 diastolic dysfunction, mild left atrial enlargement, small echogenic mass at the side of the anterior mitral valve leaflet cannot rule out healed vegetation Elevated PSA Essential (primary) hypertension GERD (gastroesophageal reflux disease) Hyperlipidemia Mitral valve mass (~2017) Noted on multiple echocardiograms measuring 0.6 x 0.7 cm on the tip of the anterior mitral valve leaflet. Not visualized on the cardiac MRI March 2018 ROSINA (obstructive
[2022-07-13] VITALS (13 sets, daily range): BP systolic 70–116; BP diastolic 43–79; PULSE 70–79; RESP 16–20; TEMP 36.7–39.1; O2SAT 94–98
[2022-07-13] MEDS: LIDOCAINE HCL 2% GEL UROJET 10 ML PKG MUCOUS MEM ×2 (01:44→13:13)
--- NOTE | 2022-07-13 04:48 | PC.NURSE ---
0430 PT CALLED ME INTO ROOM STATING HE DID NOT FEEL WELL. PT STATED HE WAS SWEATY AND NAUSEOUS. I CHECKED PT BLOOD SUGAR HE WAS 174 AND TOOK A SET OF VITALS. ALL VITALS WERE WITHIN NORMAL RANGE EXCEPT HIS BP WHICH READ LOW ON MULTIPLE ATTEMPTS MANUAL AND BY MACHINE THE HIGHEST READING WAS 70/43. CALLED DR CALVIN AND SHE ORDERED A 2L BOLUS. PT RESTING IN BED STATING HE FEELS LESS NAUSEOUS. WILL RECHECK BP AFTER FIRST 1L BOLUS.
[2022-07-13] MEDS: SODIUM CHLORIDE 0.9% IV 1,000 ML 999 ML IV CONT ×2 (04:53→05:52)
--- NOTE | 2022-07-13 06:49 | PC.NURSE ---
[address] 2[address] BOLUS PT BP STILL LOW 80/[address] CALVIN TO MOVE TO ICU 6. REPORT GIVEN LAB IN ROOM DRAWING BLOOD TRANSFERRING PT IN BED UPON LAB COMPLETION.
[2022-07-13 06:54] LABS: Hematocrit 36.1 % (42.0-52.0); Hemoglobin 12.3 g/dL (14.0-18.0); Mean Corpuscular HGB Conc 34.1 g/dl (32-36); Mean Corpuscular Hemoglobin 29.6 pg (26-34); Mean Corpuscular Volume 86.8 fl (80-100); Mean Platelet Volume 9.3 fl (7.4-10.4); Platelet Count Result 204 k/mm3 (150-375); Red Blood Count 4.16 M/mm3 (4.6-6.20); Red Cell Distribution Width 12.8 % (11.5-14.5); White Blood Count 29.7 K/mm3 (4.5-10.0)
[2022-07-13 07:05] LABS: Lactic Acid Reflex 1.8 mmol/L (0.7-2.0)
[2022-07-13 07:08] LABS: Alanine Aminotransferase 28 U/L (6-50); Alkaline Phosphatase 44 U/L (38-126); Anion Gap 6 mmol/L (8-16); Aspartate Amino Transferase 24 U/L (17-59); Bilirubin,Total 1.3 mg/dL (0.2-1.3); Blood Urea Nitrogen 24 mg/dL (9-20); Calcium 7.5 mg/dL (8.4-10.2); Carbon Dioxide 25 mmol/L (22-30); Chloride 103 mmol/L (98-107); Estimated CRCL calculation 42 ml/min; Estimated Glomerular Filt Rate 59; Glucose 189 mg/dL (65-110); Magnesium 1.5 mg/dL (1.6-2.3); Potassium 4.4 mmol/L (3.4-5.0); Sodium 134 mmol/L (137-145)
[2022-07-13 07:31] LABS: Band Neutrophils Percent 24 % (0-6); Basophils Absolute Manual 0.29 K/mm3 (0.0-0.1); Basophils Percent Manual 1 % (0-1); Lymphocytes Absolute Manual 0.59 K/mm3 (1.1-4.5); Monocytes Absolute Manual 0.89 K/mm3 (0.1-0.90); Monocytes Percent Manual 3 % (3-9); Neutrophils Absolute Manual 27.91 K/mm3 (1.3-6.7); Neutrophils Percent Manual 70 % (46-73); Platelet Estimate Adequate (Adequate); Schistocytes None Seen (NORMAL); Total Cells Counted 150
[2022-07-13 07:32] LABS: Smudge Cells PRESENT
[2022-07-13 07:53] LABS: Glucose Point of Care 189 mg/dl (65-105)
[2022-07-13] MEDS: MAGNESIUM SULF 4 GM/WATER100ML 4 GM/100 ML BAG IVPB (08:17)
[2022-07-13] MEDS: ENOXAPARIN 40 MG/0.4 ML SYRINGE SUB-Q (08:23)
[2022-07-13] MEDS: MULTIVITAMINS THERAPEUTIC TAB (*BKC) 1 TABLET PO (08:24)
--- NOTE | 2022-07-13 08:41 | WPDCNINT ---
Assessment and Plan Assessment and plan (1) Sepsis: Code(s): A41.9 - Sepsis, unspecified organism Status: Acute Assessment and Plan: Sepsis secondary to urinary tract infection. Patient has BPH with urinary obstruction and retention. He has had recent instrumentation with Solis catheter placement and removal He was transferred to ICU with low blood pressure and received additional IV fluid bolus Blood pressure soft but with adequate map at this time. His lactic acid level is normal he is asymptomatic Continue monitor closely Continue IV fluids. May need vasopressors IV albumin Check NICOM assessment for further fluid responsiveness Blood and urine cultures have been sent and are pending Continue IV Rocephin Check CT abdomen pelvis to assess for any pyelonephritis or hydronephrosis Hold home blood pressure medications and diuretics (2) UTI (urinary tract infection) due to urinary indwelling Solis catheter: Qualifiers: Indwelling urinary catheter type: indwelling urethral catheter Encounter type: initial encounter Qualified Code(s): T83.511A - Infection and inflammatory reaction due to indwelling urethral catheter, initial encounter; N39.0 - Urinary tract infection, site not specified Code(s): T83.511A - Infection and inflammatory reaction due to indwelling urethral catheter, initial encounter; N39.0 - Urinary tract infection, site not specified Status: Acute Assessment and Plan: See above (3) BPH with urinary obstruction: Code(s): N40.1 - Benign prostatic hyperplasia with lower urinary tract symptoms; N13.8 - Other obstructive and reflux uropathy Status: Acute Assessment and Plan: Patient has history of chronic BPH and has been having issues with urinary obstruction recently Now Solis has been placed and Urology has been consulted Check CT abdomen pelvis to assess hydronephrosis (4) Urinary retention: Code(s): R33.9 - Retention of urine, unspecified Status: Acute Assessment and Plan: See above (5) HLD (hyperlipidemia): Code(s): E78.5 - Hyperlipidemia, unspecified Status: Acute Assessment and Plan: Continue statin (6) Chronic GERD: Code(s): K21.9 - Gastro-esophageal reflux disease without esophagitis Status: Acute Assessment and Plan: Continue PPI (7) Type 2 diabetes mellitus with hyperglycemia, without long-term current use of insulin: Code(s): E11.65 - Type 2 diabetes mellitus with hyperglycemia Status: Acute Assessment and Plan: Sliding scale insulin Hold metformin Diabetic diet (8) Electrolyte abnormality: Code(s): E87.8 - Other disorders of electrolyte and fluid balance, not elsewhere classified Status: Acute Assessment and Plan: Replace low magnesium (9) Diastolic dysfunction: Code(s): I51.89 - Other ill-defined heart diseases Status: Acute Assessment and Plan: Echo reviewed Currently receiving IV fluids for sepsis (10) Coronary artery disease: Code(s): I25.10 - Atherosclerotic heart disease of [place] coronary artery without angina pectoris Status: Acute Assessment and Plan: Nonobstructing CAD on last catheterization Continue statin, aspirin Hold BRAULIO-inhibitor Patient not on beta-rod or antiplatelet Plan DVT prophylaxis -Lovenox Stress ulcer prophylaxis -patient is on home PPI does Nutrition -diabetic diet Code Status - Full Code Total Critical Care Time - 35 minutes Due to a high probability of clinically significant, life threatening deterioration, the patient required my highest level of preparedness to intervene emergently and I personally spent this critical care time directly and personally managing the patient. This critical care time included obtaining a history; examining the patient; pulse oximetry; ordering and review of studies; arranging urgent treatment with development of a management pl
[2022-07-13] MEDS: ASPIRIN 81 MG ENTERIC TABLET PO (09:43)
--- NOTE | 2022-07-13 11:37 | WPDURCON ---
Assessment and Plan Assessment and plan (1) Urinary retention: Code(s): R33.9 - Retention of urine, unspecified Status: Acute Assessment and Plan: Keep delgado catheter until f/u cystoscopy outpatient with Dr. Miranda on 07/21/22 at 9am. (2) BPH with urinary obstruction: Code(s): N40.1 - Benign prostatic hyperplasia with lower urinary tract symptoms; N13.8 - Other obstructive and reflux uropathy Status: Acute Assessment and Plan: Will plan to do a TURP outpatient once infection has resolved and cystoscopy has been done. (3) UTI (urinary tract infection): Code(s): N39.0 - Urinary tract infection, site not specified Status: Acute Assessment and Plan: Continue Ceftriaxone, tailor to culture sensitivity report. (4) Pyelonephritis: Code(s): N12 - Tubulo-interstitial nephritis, not specified as acute or chronic Status: Acute Assessment and Plan: No further evaluation necessary. Urology Consult Note HPI Date Seen: 07/13/22 Time Seen: 09:00 Requesting Physician: Rosibel Sheehan DO Primary Care Provider: Sadi Newberry MD Consult Narrative Reason for consult: Septic Shock Narrative: Brown Gifford is a 77 year old male who was admitted d/t a septic UTI following a delgado placement for urinary retention after failure of a voiding trial in our office on 07/11/22. He was seen initially on 07/11/22 after having a delgado placed one week prior for an acute episode of retention. At that time he was doing well, urine was clear. He was afebrile, had no chills or cloudy urine urine, as well as hematuria present. He had a Urolift [address] Miranda but states he had struggled afterward with frequency, hesitancy and straining, but suddenly stopped urinating the week prior when his delgado was placed. We instilled 150cc of NS 0.9% into his bladder via catheter, removed his delgado and he was able to void 100cc on his own. He was then sent home to follow up with Dr. Miranda for a cystoscopy to re-evaluate for a Urolift repeat versus a TURP, however he ended up in the ER the following morning on 07/12/22 in retention and had a delgado placed. Later that afternoon he was at home and experienced chills, fever and lethargy. He then returned to the ER and was found to have an elevated WBC and hypotension. He was then admitted to the ICU for treatment of sepsis. His CT scan shows bilateral pyelonephritis. WBC is 29.7, creatinine is 1.20, UA is suggestive of a UTI, urine culture and blood culture are pending. He remains on Ceftriaxone at this time. Review of Systems Cardiovascular: Cardiovascular: Denies chest pain Respiratory: Respiratory: Reports no additional respiratory complaints Gastrointestinal: Gastrointestinal: Reports abdominal pain, Denies nausea and Denies vomiting Genitourinary: Genitourinary: Denies hematuria, Denies dysuria, Denies flank pain, Denies urinary frequency, Denies urinary hesitancy and Denies urinary urgency [facility] Past Medical History Medical History BPH with urinary obstruction Coronary artery disease Cryptogenic stroke Diastolic dysfunction Echocardiogram 03/2022: Mild concentric left ventricular wall hypertrophy, normal ventricular size, normal function with EF of 60%, grade 1 diastolic dysfunction, mild left atrial enlargement, small echogenic mass at the side of the anterior mitral valve leaflet cannot rule out healed vegetation Elevated PSA Essential (primary) hypertension GERD (gastroesophageal reflux disease) Hyperlipidemia Mitral valve mass (~2017) Noted on multiple echocardiograms measuring 0.6 x 0.7 cm on the tip of the anterior mitral valve leaflet. Not visualized on the cardiac MRI March 2018 ROSINA (obstructive sleep apnea) Pericarditis Type 2 diabetes mellitus without complication, without long-term current use of insulin Surgical History Surgical History (Reviewed
[2022-07-13 11:40] LABS: Glucose Point of Care 183 mg/dl (65-105)
--- NOTE | 2022-07-13 11:41 | PM.IMPN ---
Progress Note: A&P Assessment and Plan (1) Sepsis: Code(s): A41.9 - Sepsis, unspecified organism Status: Acute Assessment and Plan: Sepsis secondary to urinary tract infection. Patient has BPH with urinary obstruction and retention. He has had recent instrumentation with Delgado catheter placement and removal Blood and urine cultures have been sent and are pending Continue IV Rocephin Check CT abdomen pelvis to assess for any pyelonephritis or hydronephrosis Hold home blood pressure medications and diuretics Normotensive during rounds without any vasopressors. Ok to downgrade to floor. Appreciate recommendations from ICU. (2) UTI (urinary tract infection) due to urinary indwelling Delgado catheter: Qualifiers: Indwelling urinary catheter type: indwelling urethral catheter Encounter type: initial encounter Qualified Code(s): T83.511A - Infection and inflammatory reaction due to indwelling urethral catheter, initial encounter; N39.0 - Urinary tract infection, site not specified Code(s): T83.511A - Infection and inflammatory reaction due to indwelling urethral catheter, initial encounter; N39.0 - Urinary tract infection, site not specified Status: Acute Assessment and Plan: See above (3) BPH with urinary obstruction: Code(s): N40.1 - Benign prostatic hyperplasia with lower urinary tract symptoms; N13.8 - Other obstructive and reflux uropathy Status: Acute Assessment and Plan: Patient has history of chronic BPH and has been having issues with urinary obstruction recently Now Delgado has been placed and Urology has been consulted Check CT abdomen pelvis to assess hydronephrosis (4) Urinary retention: Code(s): R33.9 - Retention of urine, unspecified Status: Acute Assessment and Plan: See above (5) HLD (hyperlipidemia): Code(s): E78.5 - Hyperlipidemia, unspecified Status: Acute Assessment and Plan: Continue statin (6) Chronic GERD: Code(s): K21.9 - Gastro-esophageal reflux disease without esophagitis Status: Acute Assessment and Plan: Continue PPI (7) Type 2 diabetes mellitus with hyperglycemia, without long-term current use of insulin: Code(s): E11.65 - Type 2 diabetes mellitus with hyperglycemia Status: Acute Assessment and Plan: Sliding scale insulin Hold metformin Diabetic diet (8) Electrolyte abnormality: Code(s): E87.8 - Other disorders of electrolyte and fluid balance, not elsewhere classified Status: Acute Assessment and Plan: Replace low magnesium (9) Diastolic dysfunction: Code(s): I51.89 - Other ill-defined heart diseases Status: Acute Assessment and Plan: Echo reviewed Currently receiving IV fluids for sepsis (10) Coronary artery disease: Code(s): I25.10 - Atherosclerotic heart disease of [place] coronary artery without angina pectoris Status: Acute Assessment and Plan: Nonobstructing CAD on last catheterization Continue statin, aspirin Hold BRAULIO-inhibitor Patient not on beta-rod or antiplatelet Subjective Date/time seen: 07/13/22 Patient seen and examined this morning at bedside with no family or friends present. Patient says he does not feel like he is getting any better. He says that he believes the urinary catheter is causing his infection. He has concerns about blood in his urine seen in the delgado catheter bag. Says the delgado is painful. Review of Systems Genitourinary: Genitourinary: Reports hematuria Exam Narrative: GENERAL: NAD, cooperative HEENT: Normocephalic, atraumatic, anicteric NECK: supple CV: Normal S1, S2, RRR, No MRG RESP: CTAB, Normal work of breathing. : delgado catheter with serosanginous output EXTREMITIES: Warm and well perfused, no clubbing, cyanosis, or edema. SKIN: warm, dry and intact. NEURO: CN 2-12 grossly intact. Objective Data Vital S
[2022-07-13 17:18] LABS: Glucose Point of Care 128 mg/dl (65-105)
[2022-07-13] MEDS: ACETAMINOPHEN 325 MG TABLET 650 MG PO (17:45)
[2022-07-13] MEDS: cefTRIAXone 2 GM in SODIUM CHLORIDE 0.9% IV 100 ML 200 ML IVPB (18:25)
[2022-07-13] MEDS: SODIUM CHLORIDE 0.9% IV 1,000 ML 125 ML IV CONT (18:26)
[2022-07-13 20:21] LABS: Glucose Point of Care 210 mg/dl (65-105)
--- NOTE | 2022-07-13 21:20 | PC.NURSE ---
Transformer Molder tried to call Dr. Chapa regarding positive blood cultures and no answer.
[2022-07-14 05:55] VITALS: BP 120/60; PULSE 79; RESP 16; TEMP 37.2; O2SAT 95
[2022-07-14] MEDS: SODIUM CHLORIDE 0.9% IV 1,000 ML 125 ML IV CONT (05:55)
--- NOTE | 2022-07-14 08:02 | PM.IMPN ---
Progress Note: A&P Assessment and Plan (1) Sepsis: Code(s): A41.9 - Sepsis, unspecified organism Status: Acute Assessment and Plan: Sepsis secondary to complicated urinary tract infection. Blood cultures 2/2 with pseudomonas and urine culture growing klebsiella and pseudomonas. Clinically improved. -Discontinue ceftriaxone -Cefepime 2g q12h - renally dosed -Repeat blood cultures ordered to be drawn with morning labs (2) Bacteremia due to Pseudomonas: Code(s): R78.81 - Bacteremia; B96.5 - Pseudomonas (aeruginosa) (mallei) (pseudomallei) as the cause of diseases classified elsewhere Status: Acute Assessment and Plan: 2/2 blood cultures with pseudomonas. -Repeat blood cultures ordered for AM labs -Cefepime 2g IV q12h renally dosed (3) UTI (urinary tract infection) due to urinary indwelling Delgado catheter: Qualifiers: Indwelling urinary catheter type: indwelling urethral catheter Encounter type: initial encounter Qualified Code(s): T83.511A - Infection and inflammatory reaction due to indwelling urethral catheter, initial encounter; N39.0 - Urinary tract infection, site not specified Code(s): T83.511A - Infection and inflammatory reaction due to indwelling urethral catheter, initial encounter; N39.0 - Urinary tract infection, site not specified Status: Acute Assessment and Plan: Delgado catheter has been removed and replaced multiple times in the last month due to urinary retention. Unclear if this is due to the multiple urinary catheter or the urinary retention. Treatment as noted above. . (4) BPH with urinary obstruction: Code(s): N40.1 - Benign prostatic hyperplasia with lower urinary tract symptoms; N13.8 - Other obstructive and reflux uropathy Status: Acute Assessment and Plan: CT abdomen pelvis with no hydronephrosis. Delgado catheter placed for urinary retention. Will plan to discharge with urinary cathether. -Appreciate recommendations from Urology (5) Urinary retention: Code(s): R33.9 - Retention of urine, unspecified Status: Acute Assessment and Plan: See above (6) HLD (hyperlipidemia): Code(s): E78.5 - Hyperlipidemia, unspecified Status: Acute Assessment and Plan: Continue statin (7) Chronic GERD: Code(s): K21.9 - Gastro-esophageal reflux disease without esophagitis Status: Acute Assessment and Plan: Continue PPI (8) Type 2 diabetes mellitus with hyperglycemia, without long-term current use of insulin: Code(s): E11.65 - Type 2 diabetes mellitus with hyperglycemia Status: Acute Assessment and Plan: Sliding scale insulin Hold metformin Diabetic diet (9) Electrolyte abnormality: Code(s): E87.8 - Other disorders of electrolyte and fluid balance, not elsewhere classified Status: Acute Assessment and Plan: Replete as needed (10) Diastolic dysfunction: Code(s): I51.89 - Other ill-defined heart diseases Status: Acute Assessment and Plan: Stable. Will monitor. (11) Coronary artery disease: Code(s): I25.10 - Atherosclerotic heart disease of [place] coronary artery without angina pectoris Status: Acute Assessment and Plan: Nonobstructing CAD on last catheterization. -Continue statin, aspirin -Hold BRAULIO-inhibitor as BP has been soft -Patient not on beta-rod or antiplatelet Subjective Date/time seen: 07/14/22 08:02 Patient says he feels much better. it at bedside with questions about what causes his current infection. Says he still has pain with the delgado catheter and requests numbing cream. Febrile to 39.1 at 1723 yesterday Review of Systems Genitourinary: Genitourinary: Denies hematuria and Denies dysuria Exam Narrative: GENERAL: NAD, cooperative HEENT: Normocephalic, atraumatic, a
[2022-07-14 08:04] LABS: Glucose Point of Care 155 mg/dl (65-105)
[2022-07-14] MEDS: MULTIVITAMINS THERAPEUTIC TAB (*BKC) 1 TABLET PO (08:32)
[2022-07-14] MEDS: ENOXAPARIN 40 MG/0.4 ML SYRINGE SUB-Q (08:32)
[2022-07-14] MEDS: ASPIRIN 81 MG ENTERIC TABLET PO (08:32)
[2022-07-14 08:40] LABS: Basophils Absolute Auto 0.1 K/mm3 (0.0-0.1); Basophils Percent Auto 0.4 % (0.2-1.2); Eosinophils Absolute Auto 0.1 K/mm3 (0-0.3); Eosinophils Percent Auto 0.5 % (0-4.4); Hematocrit 36.4 % (42.0-52.0); Hemoglobin 12.2 g/dL (14.0-18.0); Immature Granulocyte Absolute 0.46 K/mm3 (0.00-0.031); Immature Granulocyte Percent A 2.4 % (0-0.5); Lymphocytes Absolute Auto 0.69 K/mm3 (0.9-3.2); Lymphocytes Percent Auto 3.6 % (18.3-44.2); Mean Corpuscular HGB Conc 33.5 g/dl (32-36); Mean Corpuscular Hemoglobin 29.4 pg (26-34); Mean Corpuscular Volume 87.7 fl (80-100); Mean Platelet Volume 9.4 fl (7.4-10.4); Monocytes Absolute Auto 0.9 K/mm3 (0.1-0.6); Monocytes Percent Auto 4.9 % (2.6-8.5); Neutrophils Absolute Auto 16.7 K/mm3 (1.3-6.7); Neutrophils Percent Auto 88.2 % (45.5-73.1); Platelet Count Result 185 k/mm3 (150-375); Red Blood Count 4.15 M/mm3 (4.6-6.20); Red Cell Distribution Width 13.1 % (11.5-14.5)
[2022-07-14 09:05] LABS: Anion Gap 7 mmol/L (8-16); Blood Urea Nitrogen 15 mg/dL (9-20); Carbon Dioxide 24 mmol/L (22-30); Chloride 100 mmol/L (98-107); Estimated CRCL calculation 55 ml/min; Estimated Glomerular Filt Rate > 60; Glucose 136 mg/dL (65-110); Potassium 3.4 mmol/L (3.4-5.0); Sodium 131 mmol/L (137-145)
[2022-07-14 12:07] LABS: Glucose Point of Care 166 mg/dl (65-105)
[2022-07-14 14:00] VITALS: BP 131/69; PULSE 77; RESP 16; TEMP 38.9; O2SAT 96
[2022-07-14 14:52] VITALS: TEMP 38.9
[2022-07-14] MEDS: ACETAMINOPHEN 325 MG TABLET 650 MG PO (14:52)
[2022-07-14 14:55] VITALS: TEMP 38.9
--- NOTE | 2022-07-14 15:32 | WPDUROPN2 ---
Progress Note: A&P Assessment and Plan (1) Urinary retention: Code(s): R33.9 - Retention of urine, unspecified Status: Acute Assessment and Plan: Continue delgado catheter until f/u appt with Dr. Miranda next week for outpatient cystoscopy as long as his UTI is improved. Discharge home with delgado. Continue FLomax. (2) Septic shock: Code(s): A41.9 - Sepsis, unspecified organism; R65.21 - Severe sepsis with septic shock Status: Acute Assessment and Plan: Continue Ceftriaxone, tailor to culture sensitivity. Fevers continue at this time. WBC is trending down, will continue to follow at a distance. (3) BPH with urinary obstruction: Code(s): N40.1 - Benign prostatic hyperplasia with lower urinary tract symptoms; N13.8 - Other obstructive and reflux uropathy Status: Acute Subjective Subjective Date/Time Seen: 07/14/22 15:32 Patient is improved today, he is now in a medicine bed from the ICU yesterday. He was up and ambulating around the room today. His WBC is improved from 29 to 19 and creatinine is stable at 0.90. He is febrile at 102.1 and urine/blood cultures are positive. Urine culture grew Klebsiella and Pseudomonas and blood cultures grew pseudomonas. Continues IV therapy. Patient's was at bedside, patient was in the shower. Review of Systems Review of Systems: ROS unobtainable: Yes other (patient in shower) Objective Data Vital Signs Vital Signs: Vital Signs - 24 hr 07/13/22 17:18 07/13/22 17:23 07/13/22 17:45 Temperature 99.9 F H 102.4 F H 102 F H Pulse Rate 74 Respiratory Rate 18 Blood Pressure 112/54 L Pulse Oximetry 95 Oxygen Delivery 07/13/22 18:30 07/13/22 18:45 07/13/22 20:00 Temperature 100.2 F H 100.2 F H Pulse Rate Respiratory Rate Blood Pressure Pulse Oximetry Oxygen Delivery Room Air 07/13/22 22:00 07/14/22 05:55 07/14/22 08:00 Temperature 98.4 F 98.9 F Pulse Rate 70 79 Respiratory Rate 16 16 Blood Pressure 102/61 120/60 Pulse Oximetry 96 95 Oxygen Delivery Room Air 07/14/22 14:00 07/14/22 14:52 07/14/22 14:55 Temperature 102.1 F H 102.1 F H 102.1 F H Pulse Rate 77 Respiratory Rate 16 Blood Pressure 131/69 Pulse Oximetry 96 Oxygen Delivery Intake/Output Intake/Output: Intake & Output 07/11/22 07/12/22 07/13/22 07/14/22 23:59 23:59 23:59 23:59 Intake Total 400 122 4478 Output Total 150 1000 800 Balance -50 -360 680 Meds/Results Medications: Active Medications Generic Name Dose Route Start Last Admin Trade Name Freq PRN Reason Stop Dose Admin Acetaminophen 650 mg 07/12/22 19:58 07/14/22 14:52 Acetaminophen 325 Mg Tablet PO 650 mg Q4H PRN Administration Mild Pain (1-3) or Fever Aspirin 81 mg 07/13/22 09:00 07/14/22 08:32 Aspirin 81 Mg Enteric Tablet PO 81 mg QAM GINNY Administration Dextrose 12.5 gm 07/13/22 00:02 Dextrose 50% 25 Gm/50 Ml Syringe IV PUSH PRN PRN Hypoglycemia Protocol Enoxaparin Sodium 40 mg 07/13/22 09:00 07/14/22 08:32 Enoxaparin 40 Mg/0.4 Ml Syringe SUB-Q 40 mg DAILY GINNY Administration Glucagon 1 mg 07/13/22 00:02 Glucagon For Inj 1 Mg Vial IM PRN PRN Hypoglycemia Protocol Glucose 15 gm 07/13/22 00:02 Glucose Oral Gel 15 Gm Of Glucse In 37.5 Gm Tube PO PRN PRN Hypoglycemia Protocol Dextrose 1,000 mls @ 100 mls/hr 07/13/22 00:02 Dextrose 5% 1,000 Ml IVPB PRN PRN Hypoglycemia Protocol Ceftriaxone Sodium 2 gm/ 100 mls @ 200 mls/hr 07/13/22 18:00 07/13/22 18:55 Sodium Chloride IVPB Infused Q24H GINNY Infusion Insulin Aspart 3 - 6 units 07/13/22 08:00 07/14/22 14:16 Insulin Aspart (*Bkc) 100 Units/Ml SUB-Q Not Given TIDWM GINNY Protocol Multivitamins Therapeutic 1 tablet 07/13/22 09:00 07/14/22 08:32 Multivitamins Therapeutic Tab (*Bkc) PO 1 tablet DAILY GINNY Administration Onda
[2022-07-14 15:50] VITALS: TEMP 36.7
[2022-07-14 17:02] LABS: Glucose Point of Care 128 mg/dl (65-105)
[2022-07-14 21:10] VITALS: BP 124/64; PULSE 67; RESP 14; TEMP 36.8; O2SAT 97
[2022-07-15 05:53] LABS: Basophils Absolute Auto 0.1 K/mm3 (0.0-0.1); Basophils Percent Auto 0.4 % (0.2-1.2); Eosinophils Absolute Auto 0.2 K/mm3 (0-0.3); Eosinophils Percent Auto 1.1 % (0-4.4); Hematocrit 36.9 % (42.0-52.0); Hemoglobin 12.2 g/dL (14.0-18.0); Immature Granulocyte Absolute 0.24 K/mm3 (0.00-0.031); Immature Granulocyte Percent A 1.6 % (0-0.5); Lymphocytes Absolute Auto 0.84 K/mm3 (0.9-3.2); Lymphocytes Percent Auto 5.6 % (18.3-44.2); Mean Corpuscular HGB Conc 33.1 g/dl (32-36); Mean Corpuscular Volume 87.9 fl (80-100); Mean Platelet Volume 9.4 fl (7.4-10.4); Monocytes Absolute Auto 0.8 K/mm3 (0.1-0.6); Monocytes Percent Auto 5.4 % (2.6-8.5); Neutrophils Absolute Auto 12.8 K/mm3 (1.3-6.7); Neutrophils Percent Auto 85.9 % (45.5-73.1); Platelet Count Result 206 k/mm3 (150-375); Red Cell Distribution Width 12.9 % (11.5-14.5); White Blood Count 14.9 K/mm3 (4.5-10.0)
[2022-07-15 06:00] VITALS: BP 122/67; PULSE 65; RESP 14; TEMP 37.2; O2SAT 92
[2022-07-15 06:00] LABS: Anion Gap 11 mmol/L (8-16); Blood Urea Nitrogen 15 mg/dL (9-20); Calcium 8.3 mg/dL (8.4-10.2); Carbon Dioxide 27 mmol/L (22-30); Chloride 99 mmol/L (98-107); Estimated CRCL calculation 62 ml/min; Estimated Glomerular Filt Rate > 60; Glucose 142 mg/dL (65-110); Potassium 3.5 mmol/L (3.4-5.0); Sodium 137 mmol/L (137-145)
[2022-07-15 08:09] LABS: Glucose Point of Care 147 mg/dl (65-105)
[2022-07-15] MEDS: MULTIVITAMINS THERAPEUTIC TAB (*BKC) 1 TABLET PO (08:41)
[2022-07-15] MEDS: ASPIRIN 81 MG ENTERIC TABLET PO (08:42)
--- NOTE | 2022-07-15 09:29 | PM.IMPN ---
Progress Note: A&P Assessment and Plan (1) Sepsis: Code(s): A41.9 - Sepsis, unspecified organism Status: Acute Assessment and Plan: Sepsis secondary to complicated urinary tract infection. Blood cultures 2/2 with pseudomonas and urine culture growing klebsiella and pseudomonas. Ceftriaxone started in ED and switched to cefepime 07/14/22. Leukocytosis continues downtrending. Repeat cultures pending. Clinically improved. -Cefepime 2g q8h - renal function improved (2) Bacteremia due to Pseudomonas: Code(s): R78.81 - Bacteremia; B96.5 - Pseudomonas (aeruginosa) (mallei) (pseudomallei) as the cause of diseases classified elsewhere Status: Acute Assessment and Plan: 2/2 blood cultures with pseudomonas. Repeat cultures pending. -Cefepime 2g IV q8h (3) UTI (urinary tract infection) due to urinary indwelling Solis catheter: Qualifiers: Indwelling urinary catheter type: indwelling urethral catheter Encounter type: initial encounter Qualified Code(s): T83.511A - Infection and inflammatory reaction due to indwelling urethral catheter, initial encounter; N39.0 - Urinary tract infection, site not specified Code(s): T83.511A - Infection and inflammatory reaction due to indwelling urethral catheter, initial encounter; N39.0 - Urinary tract infection, site not specified Status: Acute Assessment and Plan: Solis catheter has been removed and replaced multiple times in the last month due to urinary retention. Unclear if this is due to the multiple urinary catheter or the urinary retention. Treatment as noted above. (4) BPH with urinary obstruction: Code(s): N40.1 - Benign prostatic hyperplasia with lower urinary tract symptoms; N13.8 - Other obstructive and reflux uropathy Status: Acute Assessment and Plan: CT abdomen pelvis with no hydronephrosis. Solis catheter placed for urinary retention. Will plan to discharge with urinary cathether. -Appreciate recommendations from Urology (5) Urinary retention: Code(s): R33.9 - Retention of urine, unspecified Status: Acute Assessment and Plan: See above (6) HLD (hyperlipidemia): Code(s): E78.5 - Hyperlipidemia, unspecified Status: Acute Assessment and Plan: Continue statin (7) Chronic GERD: Code(s): K21.9 - Gastro-esophageal reflux disease without esophagitis Status: Acute Assessment and Plan: Continue PPI (8) Type 2 diabetes mellitus with hyperglycemia, without long-term current use of insulin: Code(s): E11.65 - Type 2 diabetes mellitus with hyperglycemia Status: Acute Assessment and Plan: Sliding scale insulin Hold metformin Diabetic diet (9) Electrolyte abnormality: Code(s): E87.8 - Other disorders of electrolyte and fluid balance, not elsewhere classified Status: Acute Assessment and Plan: Replete as needed (10) Diastolic dysfunction: Code(s): I51.89 - Other ill-defined heart diseases Status: Acute Assessment and Plan: Stable. Will monitor. (11) Coronary artery disease: Code(s): I25.10 - Atherosclerotic heart disease of [place] coronary artery without angina pectoris Status: Acute Assessment and Plan: Nonobstructing CAD on last catheterization. Hold BRAULIO-inhibitor as BP has been soft but has been improving and will re-evaluate to restart tomorrow. -Continue statin, aspirin -Patient not on beta-rod or antiplatelet Subjective Date/time seen: 07/15/22 09:29 Patient says he feels great. Denies fevers, chills. Febrile to 38.9 yesterday. Started cefepime. Review of Systems Constitutional: Constitutional: Denies chills Exam Narrative: GENERAL: NAD, cooperative HEENT: Normocephalic, atraumatic, anicteric NECK: supple CV: Normal S1, S2, R
[2022-07-15 12:06] LABS: Glucose Point of Care 141 mg/dl (65-105)
[2022-07-15 14:00] VITALS: BP 125/61; PULSE 63; RESP 18; TEMP 37.4; O2SAT 96
[2022-07-15] MEDS: ACETAMINOPHEN 325 MG TABLET 650 MG PO (14:28)
[2022-07-15 17:03] LABS: Glucose Point of Care 183 mg/dl (65-105)
[2022-07-15 20:11] VITALS: BP 140/68; PULSE 59; RESP 18; TEMP 36.6; O2SAT 99
--- NOTE | 2022-07-15 21:18 | PM.IMPN ---
Subjective Date/time seen: 07/15/22 21:18 Patient has decided he no longer wants to be on hospice after speaking with the hospice passenger relations representative from [facility]. Patient seen and examined after hemodialysis and says he feels fine. Several female family members are at bedside. Review of Systems Integumentary/Breasts: Skin/Breast: Reports wounds Exam Narrative: GENERAL: NAD, more cooperative than usual HEENT: Normocephalic, atraumatic, anicteric NECK: Supple CV: Normal S1, S2, RRR, No MRG RESP: CTAB, Normal work of breathing. EXTREMITIES: Warm and well perfused, no clubbing, cyanosis, or edema. +2 Distal pulses bilaterally. SKIN: warm, dry and intact. NEURO: CN 2-12 grossly intact. Alert and oriented. Objective Data Vital Signs Vital Signs: Vital Signs - 24 hr 07/15/22 06:00 07/15/22 08:30 07/15/22 14:00 Temperature 37.2 C 37.4 C Pulse Rate 65 63 Respiratory Rate 14 18 Blood Pressure 122/67 125/61 Pulse Oximetry 92 96 Oxygen Delivery Room Air 07/15/22 20:11 Temperature 36.6 C Pulse Rate 59 L Respiratory Rate 18 Blood Pressure 140/68 Pulse Oximetry 99 Oxygen Delivery Intake/Output Intake/Output: Intake & Output 07/12/22 07/13/22 07/14/22 07/15/22 23:59 23:59 23:59 23:59 Intake Total 131 958 1614 820 Output Total 150 1000 1350 1600 Balance -50 360 316 -092 Meds/Results Medications: Active Medications Generic Name Dose Route Start Last Admin Trade Name Freq PRN Reason Stop Dose Admin Acetaminophen 650 mg 07/12/22 19:58 07/15/22 14:28 Acetaminophen 325 Mg Tablet PO 650 mg Q4H PRN Administration Mild Pain (1-3) or Fever Aspirin 81 mg 07/13/22 09:00 07/15/22 08:42 Aspirin 81 Mg Enteric Tablet PO 81 mg QAM GINNY Administration Dextrose 12.5 gm 07/13/22 00:02 Dextrose 50% 25 Gm/50 Ml Syringe IV PUSH PRN PRN Hypoglycemia Protocol Enoxaparin Sodium 40 mg 07/13/22 09:00 07/15/22 08:47 Enoxaparin 40 Mg/0.4 Ml Syringe SUB-Q Not Given DAILY GINNY Glucagon 1 mg 07/13/22 00:02 Glucagon For Inj 1 Mg Vial IM PRN PRN Hypoglycemia Protocol Glucose 15 gm 07/13/22 00:02 Glucose Oral Gel 15 Gm Of Glucse In 37.5 Gm Tube PO PRN PRN Hypoglycemia Protocol Dextrose 1,000 mls @ 100 mls/hr 07/13/22 00:02 Dextrose 5% 1,000 Ml IVPB PRN PRN Hypoglycemia Protocol Cefepime HCl 2 gm in 50 mls @ 100 mls/hr 07/15/22 14:00 07/15/22 15:03 Maxipime 2 Gm/D5w 50 Ml IVPB Infused Q8H [facility] Infusion Insulin Aspart 3 - 6 units 07/13/22 08:00 07/15/22 17:11 Insulin Aspart (*Bkc) 100 Units/Ml SUB-Q Not Given TIDWM [facility] Protocol Multivitamins Therapeutic 1 tablet 07/13/22 09:00 07/15/22 08:41 Multivitamins Therapeutic Tab (*Bkc) PO 1 tablet DAILY [facility] Administration Ondansetron HCl 4 mg 07/13/22 06:39 Ondansetron Inj 4 Mg/2 Ml Vial IV PUSH Q6H PRN Nausea And Vomiting Pantoprazole Sodium 40 mg 07/13/22 00:15 Pantoprazole 40 Mg Tablet PO DAILY PRN Acid Reflux Radiology Results: ITS Impressions Chest X-Ray 07/12/22 18:49 IMPRESSION: No acute cardiopulmonary process. Abdomen/Pelvis CT 07/13/22 11:08 IMPRESSION: 1. Bilateral inguinal hernias containing fat. 2. Small sliding hiatal hernia. 3. Diffuse hepatic steatosis. Labs Labs: Laboratory Results - last 24 hr 07/15/22 07/15/22 07/15/22 05:32 05:32 08:03 WBC 14.9 H RBC 4.20 L Hgb 12.2 L Hct 36.9 L MCV 87.9 MCH 29.0 MCHC 33.1 RDW 12.9 Plt Count 206 MPV 9.4 Immature Gran % (Auto) 1.6 H Neut % (Auto) 85.9 H Lymph % (Auto) 5.6 L [place] % (Auto) 5.4 Eos % (Auto) 1.1 Baso % (Auto) 0.4 Lymph # (Auto) 0.84 L [place] # (Auto) 0.8 H Eos # (Auto) 0.2 Baso # (Auto) 0.1 Abs Immat Gran (auto) 0.24 H Absolute Neuts (auto) 12.8 H Absolute Nucleated RBC 0.0 Nucleated RBC % 0.0 Sod
[2022-07-15 22:09] LABS: Glucose Point of Care 169 mg/dl (65-105)
--- NOTE | 2022-07-15 22:15 | PC.NURSE ---
2210: NOTIFIED RT THAT PATIENT WAS WILLING TO WEAR HIS CPAP THIS EVENING. STERILE WATER PLACED BEDSIDE.
--- NOTE | 2022-07-15 22:22 | PC.NURSE ---
RT HERE TO APPLY CPAP.
[2022-07-15] MEDS: WATER FOR IRRIGATION, STERILE 1,000 ML BOTTLE 1000 ML (22:55)
[2022-07-15 23:50] VITALS: PULSE 59; RESP 22; O2SAT 97
[2022-07-16 04:10] VITALS: PULSE 61; RESP 19; O2SAT 96
[2022-07-16 05:12] VITALS: BP 145/73; PULSE 55; RESP 20; TEMP 36.6; O2SAT 96
[2022-07-16 05:52] LABS: Basophils Absolute Auto 0.1 K/mm3 (0.0-0.1); Basophils Percent Auto 0.9 % (0.2-1.2); Eosinophils Absolute Auto 0.3 K/mm3 (0-0.3); Eosinophils Percent Auto 2.2 % (0-4.4); Hematocrit 36.4 % (42.0-52.0); Hemoglobin 12.7 g/dL (14.0-18.0); Immature Granulocyte Absolute 0.25 K/mm3 (0.00-0.031); Immature Granulocyte Percent A 2.1 % (0-0.5); Lymphocytes Absolute Auto 0.93 K/mm3 (0.9-3.2); Lymphocytes Percent Auto 7.7 % (18.3-44.2); Mean Corpuscular HGB Conc 34.9 g/dl (32-36); Mean Corpuscular Hemoglobin 29.3 pg (26-34); Mean Corpuscular Volume 83.9 fl (80-100); Mean Platelet Volume 9.2 fl (7.4-10.4); Monocytes Absolute Auto 0.9 K/mm3 (0.1-0.6); Monocytes Percent Auto 7.6 % (2.6-8.5); Neutrophils Absolute Auto 9.6 K/mm3 (1.3-6.7); Neutrophils Percent Auto 79.5 % (45.5-73.1); Platelet Count Result 208 k/mm3 (150-375); Red Blood Count 4.34 M/mm3 (4.6-6.20); Red Cell Distribution Width 12.6 % (11.5-14.5)
[2022-07-16 06:07] LABS: Anion Gap 11 mmol/L (8-16); Blood Urea Nitrogen 13 mg/dL (9-20); Calcium 8.3 mg/dL (8.4-10.2); Carbon Dioxide 27 mmol/L (22-30); Chloride 100 mmol/L (98-107); Estimated CRCL calculation 70 ml/min; Estimated Glomerular Filt Rate > 60; Glucose 163 mg/dL (65-110); Potassium 3.2 mmol/L (3.4-5.0); Sodium 138 mmol/L (137-145)
[2022-07-16 08:36] LABS: Glucose Point of Care 159 mg/dl (65-105)
[2022-07-16] MEDS: ASPIRIN 81 MG ENTERIC TABLET PO (10:29)
[2022-07-16] MEDS: MULTIVITAMINS THERAPEUTIC TAB (*BKC) 1 TABLET PO (10:29)
--- NOTE | 2022-07-16 11:10 | PM.IMPN ---
Progress Note: A&P Assessment and Plan (1) Sepsis: Code(s): A41.9 - Sepsis, unspecified organism Status: Acute Assessment and Plan: Sepsis secondary to complicated urinary tract infection. Blood cultures 2/2 with pseudomonas and urine culture growing ESBL klebsiella and pseudomonas. Ceftriaxone started in ED and switched to cefepime 07/14/22. Leukocytosis continues downtrending and afebrile since 07/14/22. Repeat cultures with no growth. Clinically improved. -Cefepime 2g q8h - renal function improved -Will need cefepime IV through 07/25/22 (2) Bacteremia due to Pseudomonas: Code(s): R78.81 - Bacteremia; B96.5 - Pseudomonas (aeruginosa) (mallei) (pseudomallei) as the cause of diseases classified elsewhere Status: Acute Assessment and Plan: 2/2 blood cultures with pseudomonas. Repeat cultures with no growth. -Cefepime 2g IV q8h (3) UTI (urinary tract infection) due to urinary indwelling Solis catheter: Qualifiers: Indwelling urinary catheter type: indwelling urethral catheter Encounter type: initial encounter Qualified Code(s): T83.511A - Infection and inflammatory reaction due to indwelling urethral catheter, initial encounter; N39.0 - Urinary tract infection, site not specified Code(s): T83.511A - Infection and inflammatory reaction due to indwelling urethral catheter, initial encounter; N39.0 - Urinary tract infection, site not specified Status: Acute Assessment and Plan: Solis catheter has been removed and replaced multiple times in the last month due to urinary retention. Unclear if this is due to the multiple urinary catheter or the urinary retention. Treatment as noted above. (4) BPH with urinary obstruction: Code(s): N40.1 - Benign prostatic hyperplasia with lower urinary tract symptoms; N13.8 - Other obstructive and reflux uropathy Status: Acute Assessment and Plan: CT abdomen pelvis with no hydronephrosis. Solis catheter placed for urinary retention. Will plan to discharge with urinary cathether. -Appreciate recommendations from Urology (5) Urinary retention: Code(s): R33.9 - Retention of urine, unspecified Status: Acute Assessment and Plan: See above (6) HLD (hyperlipidemia): Code(s): E78.5 - Hyperlipidemia, unspecified Status: Acute Assessment and Plan: Continue statin (7) Chronic GERD: Code(s): K21.9 - Gastro-esophageal reflux disease without esophagitis Status: Acute Assessment and Plan: Continue PPI (8) Type 2 diabetes mellitus with hyperglycemia, without long-term current use of insulin: Code(s): E11.65 - Type 2 diabetes mellitus with hyperglycemia Status: Acute Assessment and Plan: Sliding scale insulin Hold metformin Diabetic diet (9) Electrolyte abnormality: Code(s): E87.8 - Other disorders of electrolyte and fluid balance, not elsewhere classified Status: Acute Assessment and Plan: Replete as needed (10) Diastolic dysfunction: Code(s): I51.89 - Other ill-defined heart diseases Status: Acute Assessment and Plan: Stable. Will monitor. (11) Coronary artery disease: Code(s): I25.10 - Atherosclerotic heart disease of [place] coronary artery without angina pectoris Status: Acute Assessment and Plan: Nonobstructing CAD on last catheterization. -Continue statin, aspirin -Holding benazapril -Patient not on beta-rod or antiplatelet (12) Essential (primary) hypertension: Code(s): I10 - Essential (primary) hypertension Status: Acute Assessment and Plan: Takes lisinopril, indapamide and amlodipine-benazepril at home. -Restart amlodipine 5 mg daily -Restart indapamide 2.5 mg daily Subjective Date/time seen: 07/16/22 11:10 Patient says he
[2022-07-16 12:22] LABS: Glucose Point of Care 153 mg/dl (65-105)
[2022-07-16] MEDS: INSULIN ASPART (*BKC) 100 UNITS/ML SUB-Q ×2 (12:35→17:38)
[2022-07-16] MEDS: INDAPAMIDE 2.5 MG TABLET PO (12:36)
[2022-07-16 14:00] VITALS: BP 133/67; PULSE 64; RESP 16; TEMP 36.6; O2SAT 96
[2022-07-16 17:27] LABS: Glucose Point of Care 198 mg/dl (65-105)
[2022-07-16] MEDS: amLODIPine BESYLATE 5 MG TABLET PO (17:43)
[2022-07-16 20:08] VITALS: BP 143/74; PULSE 64; RESP 18; TEMP 37.5; O2SAT 97
[2022-07-16 20:17] LABS: Glucose Point of Care 186 mg/dl (65-105)
[2022-07-16 22:25] VITALS: PULSE 76; RESP 26; O2SAT 97
[2022-07-17] VITALS (7 sets, daily range): BP systolic 114–141; BP diastolic 51–53; PULSE 61–76; RESP 16–20; TEMP 37–38.2; O2SAT 94–98
[2022-07-17 05:44] LABS: Basophils Absolute Auto 0.1 K/mm3 (0.0-0.1); Basophils Percent Auto 0.7 % (0.2-1.2); Eosinophils Absolute Auto 0.2 K/mm3 (0-0.3); Eosinophils Percent Auto 0.8 % (0-4.4); Hemoglobin 13.6 g/dL (14.0-18.0); Immature Granulocyte Absolute 0.38 K/mm3 (0.00-0.031); Lymphocytes Absolute Auto 1.07 K/mm3 (0.9-3.2); Lymphocytes Percent Auto 5.6 % (18.3-44.2); Mean Corpuscular Volume 85.3 fl (80-100); Monocytes Absolute Auto 1.5 K/mm3 (0.1-0.6); Monocytes Percent Auto 7.8 % (2.6-8.5); Neutrophils Percent Auto 83.1 % (45.5-73.1); Platelet Count Result 229 k/mm3 (150-375); Red Blood Count 4.69 M/mm3 (4.6-6.20); Red Cell Distribution Width 12.7 % (11.5-14.5); White Blood Count 19.2 K/mm3 (4.5-10.0)
[2022-07-17 05:53] LABS: Anion Gap 14 mmol/L (8-16); Blood Urea Nitrogen 13 mg/dL (9-20); Calcium 8.7 mg/dL (8.4-10.2); Carbon Dioxide 27 mmol/L (22-30); Chloride 95 mmol/L (98-107); Estimated CRCL calculation 62 ml/min; Estimated Glomerular Filt Rate > 60; Glucose 189 mg/dL (65-110); Potassium 3.3 mmol/L (3.4-5.0); Sodium 136 mmol/L (137-145)
--- NOTE | 2022-07-17 08:06 | PM.IMPN ---
Progress Note: A&P Assessment and Plan (1) Sepsis: Code(s): A41.9 - Sepsis, unspecified organism Status: Acute Assessment and Plan: Sepsis secondary to complicated urinary tract infection. Blood cultures 2/2 with pseudomonas and urine culture growing ESBL klebsiella and pseudomonas. Ceftriaxone started in ED and switched to cefepime 07/14/22. Afebrile since 07/14/22. Repeat cultures with no growth. Clinically improved. -Cefepime 2g q8h - renal function improved -Will need cefepime IV through 07/25/22 (2) Bacteremia due to Pseudomonas: Code(s): R78.81 - Bacteremia; B96.5 - Pseudomonas (aeruginosa) (mallei) (pseudomallei) as the cause of diseases classified elsewhere Status: Acute Assessment and Plan: 2/2 blood cultures with pseudomonas. Repeat cultures with no growth. -Cefepime 2g IV q8h (3) UTI (urinary tract infection) due to urinary indwelling Solis catheter: Qualifiers: Encounter type: initial encounter Indwelling urinary catheter type: indwelling urethral catheter Qualified Code(s): T83.511A - Infection and inflammatory reaction due to indwelling urethral catheter, initial encounter; N39.0 - Urinary tract infection, site not specified Code(s): T83.511A - Infection and inflammatory reaction due to indwelling urethral catheter, initial encounter; N39.0 - Urinary tract infection, site not specified Status: Acute Assessment and Plan: Solis catheter has been removed and replaced multiple times in the last month due to urinary retention. Unclear if this is due to the multiple urinary catheter or the urinary retention. Treatment as noted above. (4) BPH with urinary obstruction: Code(s): N40.1 - Benign prostatic hyperplasia with lower urinary tract symptoms; N13.8 - Other obstructive and reflux uropathy Status: Acute Assessment and Plan: CT abdomen pelvis with no hydronephrosis. Solis catheter placed for urinary retention. Will plan to discharge with urinary catheter. (5) Urinary retention: Code(s): R33.9 - Retention of urine, unspecified Status: Acute Assessment and Plan: See above (6) HLD (hyperlipidemia): Code(s): E78.5 - Hyperlipidemia, unspecified Status: Acute Assessment and Plan: Continue statin (7) Chronic GERD: Code(s): K21.9 - Gastro-esophageal reflux disease without esophagitis Status: Acute Assessment and Plan: Continue PPI (8) Type 2 diabetes mellitus with hyperglycemia, without long-term current use of insulin: Code(s): E11.65 - Type 2 diabetes mellitus with hyperglycemia Status: Acute Assessment and Plan: Sliding scale insulin Hold metformin Diabetic diet (9) Electrolyte abnormality: Code(s): E87.8 - Other disorders of electrolyte and fluid balance, not elsewhere classified Status: Acute Assessment and Plan: Replete as needed (10) Diastolic dysfunction: Code(s): I51.89 - Other ill-defined heart diseases Status: Acute Assessment and Plan: Stable. Will monitor. (11) Coronary artery disease: Code(s): I25.10 - Atherosclerotic heart disease of [place] coronary artery without angina pectoris Status: Acute Assessment and Plan: Nonobstructing CAD on last catheterization. -Continue statin, aspirin -Restart benazapril -Patient not on beta-rod or antiplatelet (12) Essential (primary) hypertension: Code(s): I10 - Essential (primary) hypertension Status: Acute Assessment and Plan: Takes lisinopril, indapamide and amlodipine-benazepril at home. Restarted all home medications. Subjective Date/time seen: 07/17/22 08:06 Patient says he had a rough night because he had a muscle spasm. He says he did not request any pain medication. Says he walked
[2022-07-17] MEDS: ASPIRIN 81 MG ENTERIC TABLET PO (08:27)
[2022-07-17] MEDS: MULTIVITAMINS THERAPEUTIC TAB (*BKC) 1 TABLET PO (08:27)
[2022-07-17] MEDS: INDAPAMIDE 2.5 MG TABLET PO (08:27)
[2022-07-17] MEDS: ENOXAPARIN 40 MG/0.4 ML SYRINGE SUB-Q (08:28)
[2022-07-17 08:38] LABS: Glucose Point of Care 198 mg/dl (65-105)
[2022-07-17] MEDS: POTASSIUM CHLORIDE 20 MEQ PACKET (FOR LIQUID) 40 MEQ PO ×2 (08:57→16:55)
[2022-07-17] MEDS: lisinopriL 20 MG TABLET PO (08:57)
[2022-07-17] MEDS: INSULIN ASPART (*BKC) 100 UNITS/ML SUB-Q ×5 (08:58→17:38)
[2022-07-17] MEDS: amLODIPine BESYLATE 5 MG TABLET PO (09:02)
[2022-07-17 12:06] LABS: Glucose Point of Care 236 mg/dl (65-105)
[2022-07-17 15:22] LABS: Hematocrit 38.2 % (42.0-52.0); Hemoglobin 12.8 g/dL (14.0-18.0); Mean Corpuscular HGB Conc 33.5 g/dl (32-36); Mean Corpuscular Volume 86.4 fl (80-100); Mean Platelet Volume 9.1 fl (7.4-10.4); Platelet Count Result 237 k/mm3 (150-375); Red Blood Count 4.42 M/mm3 (4.6-6.20); Red Cell Distribution Width 12.8 % (11.5-14.5); White Blood Count 22.1 K/mm3 (4.5-10.0)
[2022-07-17 17:17] LABS: Glucose Point of Care 236 mg/dl (65-105)
[2022-07-17 20:54] LABS: Glucose Point of Care 183 mg/dl (65-105)
[2022-07-17] MEDS: ACETAMINOPHEN 325 MG TABLET 650 MG PO (21:10)
[2022-07-17 22:36] LABS: Add Urine Microscopic? YES; Appearance Urine Clear (Clear); Bilirubin Urine Negative (Negative); Blood Urine 2+ (Negative); Color Urine Yellow (Yellow); Glucose Urine UA Negative (Negative); Ketones Urine Negative (Negative); Leukocyte Esterase Ur Negative LEU/UL (Negative); Mucus Urine Rare /lpf; Nitrate Urine Negative (Negative); Protein Urine Negative (Negative); RBC Urine 0-2 /hpf (0-2); Specific Grav Ur 1.019 (1.001-1.035); Urobilinogen Urine Negative mg/dL (<2.0); WBC Urine 0-3 /hpf
[2022-07-18 02:06] LABS: Toxigenic C. Diff NEGATIVE (NEGATIVE)
[2022-07-18 06:00] VITALS: BP 137/64; PULSE 56; RESP 16; TEMP 36.8; O2SAT 96
[2022-07-18 06:03] LABS: Basophils Absolute Auto 0.2 K/mm3 (0.0-0.1); Eosinophils Absolute Auto 0.2 K/mm3 (0-0.3); Eosinophils Percent Auto 0.9 % (0-4.4); Hematocrit 40.5 % (42.0-52.0); Hemoglobin 13.4 g/dL (14.0-18.0); Immature Granulocyte Percent A 5.4 % (0-0.5); Lymphocytes Percent Auto 8.8 % (18.3-44.2); Mean Corpuscular HGB Conc 33.1 g/dl (32-36); Mean Corpuscular Hemoglobin 28.2 pg (26-34); Mean Corpuscular Volume 85.1 fl (80-100); Mean Platelet Volume 9.2 fl (7.4-10.4); Monocytes Absolute Auto 1.5 K/mm3 (0.1-0.6); Monocytes Percent Auto 7.4 % (2.6-8.5); Neutrophils Absolute Auto 15.6 K/mm3 (1.3-6.7); Neutrophils Percent Auto 76.5 % (45.5-73.1); Platelet Count Result 263 k/mm3 (150-375); Red Blood Count 4.76 M/mm3 (4.6-6.20); Red Cell Distribution Width 12.5 % (11.5-14.5); White Blood Count 20.4 K/mm3 (4.5-10.0)
[2022-07-18 06:27] LABS: Anion Gap 10 mmol/L (8-16); Blood Urea Nitrogen 18 mg/dL (9-20); Calcium 9.1 mg/dL (8.4-10.2); Carbon Dioxide 29 mmol/L (22-30); Chloride 98 mmol/L (98-107); Estimated CRCL calculation 70 ml/min; Estimated Glomerular Filt Rate > 60; Glucose 161 mg/dL (65-110); Potassium 4.3 mmol/L (3.4-5.0); Sodium 137 mmol/L (137-145)
[2022-07-18 08:22] LABS: Glucose Point of Care 154 mg/dl (65-105)
[2022-07-18] MEDS: INSULIN ASPART (*BKC) 100 UNITS/ML SUB-Q ×4 (08:38→17:46)
[2022-07-18] MEDS: INDAPAMIDE 2.5 MG TABLET PO (08:42)
[2022-07-18] MEDS: ASPIRIN 81 MG ENTERIC TABLET PO (08:42)
[2022-07-18] MEDS: lisinopriL 20 MG TABLET PO (08:42)
[2022-07-18] MEDS: MULTIVITAMINS THERAPEUTIC TAB (*BKC) 1 TABLET PO (08:42)
[2022-07-18] MEDS: amLODIPine BESYLATE 5 MG TABLET PO (08:42)
--- NOTE | 2022-07-18 08:54 | PM.IMPN ---
Progress Note: A&P Assessment and Plan (1) Sepsis: Code(s): A41.9 - Sepsis, unspecified organism Status: Acute Assessment and Plan: Sepsis secondary to complicated urinary tract infection. Blood cultures 2/2 with pseudomonas and urine culture growing ESBL klebsiella and pseudomonas. Ceftriaxone started in ED and switched to cefepime 07/14/22 after discussion with ID pharmacist. Repeat cultures from 07/15 with no growth. Febrile throughout the day, so repeat CBC checked and WBC up to 22. Imipenem started. WBC down to 20 this morning after only on dose of imipenem at midnight. -Imipenem 500 mg IV q6h -Repeat blood cultures sent at 1956 yesterday evening -Will need to change end date. Will continue to monitor 07/15 and 07/17 repeat cultures to determine stop date. (2) Bacteremia due to Pseudomonas: Code(s): R78.81 - Bacteremia; B96.5 - Pseudomonas (aeruginosa) (mallei) (pseudomallei) as the cause of diseases classified elsewhere Status: Acute Assessment and Plan: 2/2 blood cultures with pseudomonas. 07/15 cultures with no growth. -Imipenem 500 mg IV q6h for now (3) UTI (urinary tract infection) due to urinary indwelling Solis catheter: Qualifiers: Indwelling urinary catheter type: indwelling urethral catheter Encounter type: initial encounter Qualified Code(s): T83.511A - Infection and inflammatory reaction due to indwelling urethral catheter, initial encounter; N39.0 - Urinary tract infection, site not specified Code(s): T83.511A - Infection and inflammatory reaction due to indwelling urethral catheter, initial encounter; N39.0 - Urinary tract infection, site not specified Status: Acute Assessment and Plan: Solis catheter has been removed and replaced multiple times in the last month due to urinary retention. Unclear if this is due to the multiple urinary catheter or the urinary retention. Treatment as noted above. (4) BPH with urinary obstruction: Code(s): N40.1 - Benign prostatic hyperplasia with lower urinary tract symptoms; N13.8 - Other obstructive and reflux uropathy Status: Acute Assessment and Plan: CT abdomen pelvis with no hydronephrosis. Solis catheter placed for urinary retention. Will plan to discharge with urinary catheter. (5) Urinary retention: Code(s): R33.9 - Retention of urine, unspecified Status: Acute Assessment and Plan: See above (6) HLD (hyperlipidemia): Code(s): E78.5 - Hyperlipidemia, unspecified Status: Acute Assessment and Plan: Continue statin (7) Chronic GERD: Code(s): K21.9 - Gastro-esophageal reflux disease without esophagitis Status: Acute Assessment and Plan: Continue PPI (8) Type 2 diabetes mellitus with hyperglycemia, without long-term current use of insulin: Code(s): E11.65 - Type 2 diabetes mellitus with hyperglycemia Status: Acute Assessment and Plan: Sliding scale insulin Hold metformin Diabetic diet (9) Electrolyte abnormality: Code(s): E87.8 - Other disorders of electrolyte and fluid balance, not elsewhere classified Status: Acute Assessment and Plan: Replete as needed (10) Diastolic dysfunction: Code(s): I51.89 - Other ill-defined heart diseases Status: Acute Assessment and Plan: Stable. Will monitor. (11) Coronary artery disease: Code(s): I25.10 - Atherosclerotic heart disease of [place] coronary artery without angina pectoris Status: Acute Assessment and Plan: Nonobstructing CAD on last catheterization. -Continue statin, aspirin -Continue benazepril -Patient not on beta-rod or antiplatelet (12) Essential (primary) hypertension: Code(s): I10 - Essential (primary) hypertension Status: Acute Assessment and Plan: Ta
[2022-07-18 12:13] LABS: Glucose Point of Care 274 mg/dl (65-105)
[2022-07-18 14:00] VITALS: BP 100/52; PULSE 64; RESP 20; TEMP 36.3; O2SAT 98
[2022-07-18 17:32] LABS: Glucose Point of Care 185 mg/dl (65-105)
[2022-07-18 20:00] VITALS: PULSE 99; RESP 16; O2SAT 99
[2022-07-18 20:35] LABS: Glucose Point of Care 299 mg/dl (65-105)
[2022-07-18 20:47] VITALS: BP 115/62; PULSE 99; RESP 16; TEMP 36.6; O2SAT 99
[2022-07-19] MEDS: ACETAMINOPHEN 325 MG TABLET 650 MG PO ×3 (00:25→20:45)
[2022-07-19 06:00] VITALS: BP 122/67; PULSE 55; RESP 16; TEMP 36.8; O2SAT 96
[2022-07-19 07:40] LABS: Hematocrit 40.4 % (42.0-52.0); Hemoglobin 13.4 g/dL (14.0-18.0); Immature Platelet Fraction Pct 4.8 % (0.9-11.2); Mean Corpuscular HGB Conc 33.2 g/dl (32-36); Mean Corpuscular Hemoglobin 28.3 pg (26-34); Mean Corpuscular Volume 85.2 fl (80-100); Mean Platelet Volume 9.8 fl (7.4-10.4); Platelet Count Result 317 k/mm3 (150-375); Red Blood Count 4.74 M/mm3 (4.6-6.20); Red Cell Distribution Width 12.9 % (11.5-14.5); White Blood Count 17.4 K/mm3 (4.5-10.0)
[2022-07-19 07:53] LABS: Anion Gap 15 mmol/L (8-16); Blood Urea Nitrogen 21 mg/dL (9-20); Calcium 8.5 mg/dL (8.4-10.2); Carbon Dioxide 28 mmol/L (22-30); Chloride 95 mmol/L (98-107); Estimated CRCL calculation 62 ml/min; Estimated Glomerular Filt Rate > 60; Glucose 182 mg/dL (65-110); Potassium 4.1 mmol/L (3.4-5.0); Sodium 138 mmol/L (137-145)
--- NOTE | 2022-07-19 08:26 | PM.IMPN ---
Progress Note: A&P Assessment and Plan (1) Sepsis: Code(s): A41.9 - Sepsis, unspecified organism Status: Acute Assessment and Plan: Sepsis secondary to complicated urinary tract infection. Blood cultures 2/2 with pseudomonas and urine culture growing ESBL klebsiella and pseudomonas. Ceftriaxone started in ED and switched to cefepime 07/14/22 after discussion with ID pharmacist. Repeat cultures from 07/15 & 07/17 with no growth. -Imipenem 500 mg IV q6h -Started treatment on 07/15 but last switched antibiotics on 07/17 -Form signed for Screen Operator for home antibiotics (2) Bacteremia due to Pseudomonas: Code(s): R78.81 - Bacteremia; B96.5 - Pseudomonas (aeruginosa) (mallei) (pseudomallei) as the cause of diseases classified elsewhere Status: Acute Assessment and Plan: 2/2 blood cultures with pseudomonas. 07/15 &07/17 cultures with no growth. -Imipenem 500 mg IV q6h for now (3) UTI (urinary tract infection) due to urinary indwelling Solis catheter: Qualifiers: Indwelling urinary catheter type: indwelling urethral catheter Encounter type: initial encounter Qualified Code(s): T83.511A - Infection and inflammatory reaction due to indwelling urethral catheter, initial encounter; N39.0 - Urinary tract infection, site not specified Code(s): T83.511A - Infection and inflammatory reaction due to indwelling urethral catheter, initial encounter; N39.0 - Urinary tract infection, site not specified Status: Acute Assessment and Plan: Solis catheter has been removed and replaced multiple times in the last month due to urinary retention. Unclear if this is due to the multiple urinary catheter or the urinary retention. Treatment as noted above. (4) BPH with urinary obstruction: Code(s): N40.1 - Benign prostatic hyperplasia with lower urinary tract symptoms; N13.8 - Other obstructive and reflux uropathy Status: Acute Assessment and Plan: CT abdomen pelvis with no hydronephrosis. Solis catheter placed for urinary retention. Will plan to discharge with urinary catheter. (5) Urinary retention: Code(s): R33.9 - Retention of urine, unspecified Status: Acute Assessment and Plan: See above (6) HLD (hyperlipidemia): Code(s): E78.5 - Hyperlipidemia, unspecified Status: Acute Assessment and Plan: Continue statin (7) Chronic GERD: Code(s): K21.9 - Gastro-esophageal reflux disease without esophagitis Status: Acute Assessment and Plan: Continue PPI (8) Type 2 diabetes mellitus with hyperglycemia, without long-term current use of insulin: Code(s): E11.65 - Type 2 diabetes mellitus with hyperglycemia Status: Acute Assessment and Plan: Sliding scale insulin Hold metformin Diabetic diet -Aspart 3 units TIDWM (9) Electrolyte abnormality: Code(s): E87.8 - Other disorders of electrolyte and fluid balance, not elsewhere classified Status: Acute Assessment and Plan: Replete as needed (10) Diastolic dysfunction: Code(s): I51.89 - Other ill-defined heart diseases Status: Acute Assessment and Plan: Stable. Will monitor. (11) Coronary artery disease: Code(s): I25.10 - Atherosclerotic heart disease of [place] coronary artery without angina pectoris Status: Acute Assessment and Plan: Nonobstructing CAD on last catheterization. -Continue statin, aspirin -Continue benazepril -Patient not on beta-rod or antiplatelet (12) Essential (primary) hypertension: Code(s): I10 - Essential (primary) hypertension Status: Acute Assessment and Plan: Takes lisinopril, indapamide and amlodipine-benazepril at home. Restarted all home medications. Subjective Date/time seen: 07/19/22 08:26 Patient sa
[2022-07-19 08:41] LABS: Band Neutrophils Percent 14 % (0-6); Eosinophils Absolute Manual 0.34 K/mm3 (0.02-0.5); Eosinophils Percent Manual 2 % (0-4); Metamyelocytes Percent 2 %; Monocytes Absolute Manual 0.52 K/mm3 (0.1-0.90); Monocytes Percent Manual 3 % (3-9); Myelocytes Percent 2 %; Neutrophils Absolute Manual 12.52 K/mm3 (1.3-6.7); Neutrophils Percent Manual 58 % (46-73); Nucleated Red Blood Cells 1 %; Total Cells Counted 100
[2022-07-19 08:49] LABS: Glucose Point of Care 201 mg/dl (65-105)
[2022-07-19 08:54] LABS: Platelet Estimate Adequate (Adequate)
[2022-07-19 08:55] LABS: Polychromasia 1+ (NORMAL); Schistocytes None Seen (NORMAL)
[2022-07-19 08:56] LABS: Anisocytosis 1+ (NORMAL)
[2022-07-19] MEDS: INSULIN ASPART (*BKC) 100 UNITS/ML SUB-Q ×6 (08:59→17:19)
[2022-07-19] MEDS: MULTIVITAMINS THERAPEUTIC TAB (*BKC) 1 TABLET PO (09:06)
[2022-07-19] MEDS: INDAPAMIDE 2.5 MG TABLET PO (09:06)
[2022-07-19] MEDS: amLODIPine BESYLATE 5 MG TABLET PO (09:06)
[2022-07-19] MEDS: lisinopriL 20 MG TABLET PO (09:06)
[2022-07-19] MEDS: ASPIRIN 81 MG ENTERIC TABLET PO (09:06)
[2022-07-19 12:11] LABS: Glucose Point of Care 252 mg/dl (65-105)
[2022-07-19 14:10] VITALS: BP 111/60; PULSE 62; RESP 16; TEMP 36.8; O2SAT 95
[2022-07-19 17:07] LABS: Glucose Point of Care 204 mg/dl (65-105)
[2022-07-19 20:00] VITALS: PULSE 60; RESP 16; O2SAT 99
[2022-07-19 21:25] LABS: Glucose Point of Care 214 mg/dl (65-105)
[2022-07-19 21:46] VITALS: BP 126/71; PULSE 60; RESP 16; TEMP 36.7; O2SAT 99
[2022-07-20 06:00] VITALS: BP 119/62; PULSE 52; RESP 16; TEMP 36.7; O2SAT 96
[2022-07-20 06:16] LABS: Basophils Absolute Auto 0.3 K/mm3 (0.0-0.1); Basophils Percent Auto 2.3 % (0.2-1.2); Eosinophils Absolute Auto 0.4 K/mm3 (0-0.3); Eosinophils Percent Auto 2.6 % (0-4.4); Hematocrit 42.3 % (42.0-52.0); Hemoglobin 14.2 g/dL (14.0-18.0); Immature Granulocyte Absolute 1.15 K/mm3 (0.00-0.031); Immature Granulocyte Percent A 8.2 % (0-0.5); Lymphocytes Percent Auto 21.5 % (18.3-44.2); Mean Corpuscular HGB Conc 33.6 g/dl (32-36); Mean Corpuscular Hemoglobin 28.7 pg (26-34); Mean Corpuscular Volume 85.6 fl (80-100); Monocytes Absolute Auto 0.8 K/mm3 (0.1-0.6); Monocytes Percent Auto 5.7 % (2.6-8.5); Neutrophils Absolute Auto 8.3 K/mm3 (1.3-6.7); Neutrophils Percent Auto 59.7 % (45.5-73.1); Platelet Count Result 351 k/mm3 (150-375); Red Blood Count 4.94 M/mm3 (4.6-6.20); Red Cell Distribution Width 12.7 % (11.5-14.5); White Blood Count 13.9 K/mm3 (4.5-10.0)
[2022-07-20 06:31] LABS: Anion Gap 12 mmol/L (8-16); Blood Urea Nitrogen 21 mg/dL (9-20); Calcium 8.8 mg/dL (8.4-10.2); Carbon Dioxide 31 mmol/L (22-30); Chloride 95 mmol/L (98-107); Estimated CRCL calculation 55 ml/min; Estimated Glomerular Filt Rate > 60; Glucose 175 mg/dL (65-110); Potassium 4.2 mmol/L (3.4-5.0); Sodium 138 mmol/L (137-145)
[2022-07-20] MEDS: ACETAMINOPHEN 325 MG TABLET 650 MG PO (06:34)
[2022-07-20] MEDS: ASPIRIN 81 MG ENTERIC TABLET PO (07:50)
[2022-07-20] MEDS: amLODIPine BESYLATE 5 MG TABLET PO (07:51)
[2022-07-20] MEDS: lisinopriL 20 MG TABLET PO (07:51)
[2022-07-20] MEDS: INDAPAMIDE 2.5 MG TABLET PO (07:51)
[2022-07-20] MEDS: MULTIVITAMINS THERAPEUTIC TAB (*BKC) 1 TABLET PO (07:52)
[2022-07-20 08:00] VITALS: PULSE 52; RESP 16; O2SAT 96
[2022-07-20 08:03] LABS: Glucose Point of Care 177 mg/dl (65-105)
[2022-07-20] MEDS: INSULIN ASPART (*BKC) 100 UNITS/ML SUB-Q ×4 (08:04→17:14)
[2022-07-20 12:14] LABS: Glucose Point of Care 151 mg/dl (65-105)
--- NOTE | 2022-07-20 13:06 | PCNSR ---
On 07/20/22, the student, Jaziel Garrison, provided care and [facility]. I have reviewed the student's documentation and agree with the findings.
[2022-07-20 14:00] VITALS: BP 109/58; PULSE 61; RESP 18; TEMP 36.8; O2SAT 100
--- NOTE | 2022-07-20 15:35 | PM.IMPN ---
Progress Note: A&P Assessment and Plan (1) Sepsis: Code(s): A41.9 - Sepsis, unspecified organism Status: Acute Assessment and Plan: Sepsis secondary to complicated urinary tract infection. Blood cultures 2/2 with pseudomonas and urine culture growing ESBL klebsiella and pseudomonas. Ceftriaxone started in ED and switched to cefepime 07/14/22 after discussion with ID pharmacist. Repeat cultures from 07/15 & 07/17 with no growth. -Imipenem 500 mg IV q6h -Started treatment on 07/15 but last switched antibiotics on 07/17 -Form signed for Special Officer for home antibiotics 07/20/2022 interval history: patient states is feeling much better compared to when he arrived denies any fever or chills, patient will need additional 7 days of IV antibiotic will discuss with pharmacy id and further recommendation to follow (2) Bacteremia due to Pseudomonas: Code(s): R78.81 - Bacteremia; B96.5 - Pseudomonas (aeruginosa) (mallei) (pseudomallei) as the cause of diseases classified elsewhere Status: Acute Assessment and Plan: 2/2 blood cultures with pseudomonas. 07/15 &07/17 cultures with no growth. -Imipenem 500 mg IV q6h for now (3) UTI (urinary tract infection) due to urinary indwelling Solis catheter: Qualifiers: Encounter type: initial encounter Indwelling urinary catheter type: indwelling urethral catheter Qualified Code(s): T83.511A - Infection and inflammatory reaction due to indwelling urethral catheter, initial encounter; N39.0 - Urinary tract infection, site not specified Code(s): T83.511A - Infection and inflammatory reaction due to indwelling urethral catheter, initial encounter; N39.0 - Urinary tract infection, site not specified Status: Acute Assessment and Plan: Solis catheter has been removed and replaced multiple times in the last month due to urinary retention. Unclear if this is due to the multiple urinary catheter or the urinary retention. Treatment as noted above. (4) BPH with urinary obstruction: Code(s): N40.1 - Benign prostatic hyperplasia with lower urinary tract symptoms; N13.8 - Other obstructive and reflux uropathy Status: Acute Assessment and Plan: CT abdomen pelvis with no hydronephrosis. Solis catheter placed for urinary retention. Will plan to discharge with urinary catheter. (5) Urinary retention: Code(s): R33.9 - Retention of urine, unspecified Status: Acute Assessment and Plan: See above (6) HLD (hyperlipidemia): Code(s): E78.5 - Hyperlipidemia, unspecified Status: Acute Assessment and Plan: Continue statin (7) Chronic GERD: Code(s): K21.9 - Gastro-esophageal reflux disease without esophagitis Status: Acute Assessment and Plan: Continue PPI (8) Type 2 diabetes mellitus with hyperglycemia, without long-term current use of insulin: Code(s): E11.65 - Type 2 diabetes mellitus with hyperglycemia Status: Acute Assessment and Plan: Sliding scale insulin Hold metformin Diabetic diet -Aspart 3 units TIDWM (9) Electrolyte abnormality: Code(s): E87.8 - Other disorders of electrolyte and fluid balance, not elsewhere classified Status: Acute Assessment and Plan: Replete as needed (10) Diastolic dysfunction: Code(s): I51.89 - Other ill-defined heart diseases Status: Acute Assessment and Plan: Stable. Will monitor. (11) Coronary artery disease: Code(s): I25.10 - Atherosclerotic heart disease of [place] coronary artery without angina pectoris Status: Acute Assessment and Plan: Nonobstructing CAD on last catheterization. -Continue statin, aspirin -Continue benazepril -Patient not on beta-rod or antiplatelet (12) Essential (primary) hypertension: Code(s): I10 - Essenti
--- NOTE | 2022-07-20 16:23 | PC.NURSE ---
appeals reviewer veteran of assessment.
[2022-07-20 17:34] LABS: Glucose Point of Care 244 mg/dl (65-105)
[2022-07-20 20:04] LABS: Glucose Point of Care 247 mg/dl (65-105)
[2022-07-20 20:36] VITALS: BP 129/64; PULSE 63; RESP 18; TEMP 36.1; O2SAT 99
[2022-07-21 04:43] VITALS: BP 115/52; PULSE 55; RESP 16; TEMP 36.4; O2SAT 96
[2022-07-21 05:43] LABS: Basophils Absolute Auto 0.2 K/mm3 (0.0-0.1); Basophils Percent Auto 1.4 % (0.2-1.2); Eosinophils Absolute Auto 0.3 K/mm3 (0-0.3); Eosinophils Percent Auto 2.1 % (0-4.4); Hematocrit 41.3 % (42.0-52.0); Hemoglobin 13.6 g/dL (14.0-18.0); Immature Granulocyte Percent A 6.5 % (0-0.5); Lymphocytes Absolute Auto 2.61 K/mm3 (0.9-3.2); Mean Corpuscular HGB Conc 32.9 g/dl (32-36); Mean Corpuscular Hemoglobin 28.7 pg (26-34); Mean Corpuscular Volume 87.1 fl (80-100); Mean Platelet Volume 8.9 fl (7.4-10.4); Monocytes Absolute Auto 0.7 K/mm3 (0.1-0.6); Monocytes Percent Auto 5.3 % (2.6-8.5); Neutrophils Absolute Auto 7.9 K/mm3 (1.3-6.7); Neutrophils Percent Auto 63.7 % (45.5-73.1); Platelet Count Result 328 k/mm3 (150-375); Red Blood Count 4.74 M/mm3 (4.6-6.20); Red Cell Distribution Width 12.7 % (11.5-14.5); White Blood Count 12.4 K/mm3 (4.5-10.0)
[2022-07-21 05:54] LABS: Anion Gap 10 mmol/L (8-16); Blood Urea Nitrogen 22 mg/dL (9-20); Calcium 8.6 mg/dL (8.4-10.2); Carbon Dioxide 31 mmol/L (22-30); Chloride 95 mmol/L (98-107); Estimated CRCL calculation 50 ml/min; Estimated Glomerular Filt Rate > 60; Glucose 177 mg/dL (65-110); Potassium 4.4 mmol/L (3.4-5.0); Sodium 136 mmol/L (137-145)
[2022-07-21 08:13] LABS: Glucose Point of Care 177 mg/dl (65-105)
[2022-07-21] MEDS: amLODIPine BESYLATE 5 MG TABLET PO (08:55)
[2022-07-21] MEDS: ASPIRIN 81 MG ENTERIC TABLET PO (08:55)
[2022-07-21] MEDS: MULTIVITAMINS THERAPEUTIC TAB (*BKC) 1 TABLET PO (08:55)
[2022-07-21] MEDS: INDAPAMIDE 2.5 MG TABLET PO (08:55)
[2022-07-21] MEDS: lisinopriL 20 MG TABLET PO (08:55)
[2022-07-21] MEDS: INSULIN ASPART (*BKC) 100 UNITS/ML SUB-Q ×3 (08:56→17:21)
[2022-07-21] MEDS: ACETAMINOPHEN 325 MG TABLET 650 MG PO (08:59)
[2022-07-21 12:16] LABS: Glucose Point of Care 192 mg/dl (65-105)
[2022-07-21 14:00] VITALS: BP 100/62; PULSE 66; RESP 20; TEMP 36.2; O2SAT 99
--- NOTE | 2022-07-21 16:39 | PM.IMPN ---
Progress Note: A&P Assessment and Plan (1) Sepsis: Code(s): A41.9 - Sepsis, unspecified organism Status: Acute Assessment and Plan: Sepsis secondary to complicated urinary tract infection. Blood cultures 2/2 with pseudomonas and urine culture growing ESBL klebsiella and pseudomonas. Ceftriaxone started in ED and switched to cefepime 07/14/22 after discussion with ID pharmacist. Repeat cultures from 07/15 & 07/17 with no growth. -Imipenem 500 mg IV q6h -Started treatment on 07/15 but last switched antibiotics on 07/17 -Form signed for Front Facer for home antibiotics 07/21/2022 interval history: patient states is feeling much better compared to when he arrived denies any fever or chills, patient blood cultures positive for Pseudomonas and urine is growing Klebsiella pneumonia ESBL patient is being treated with imipenem will cover both organisms, patient will need additional 3 days of IV and will complete the course on on MondayJuly 24, discussed with pharmacy id and further recommendation to follow (2) Bacteremia due to Pseudomonas: Code(s): R78.81 - Bacteremia; B96.5 - Pseudomonas (aeruginosa) (mallei) (pseudomallei) as the cause of diseases classified elsewhere Status: Acute Assessment and Plan: 2/2 blood cultures with pseudomonas. 07/15 &07/17 cultures with no growth. -Imipenem 500 mg IV q6h for now (3) UTI (urinary tract infection) due to urinary indwelling Solis catheter: Qualifiers: Indwelling urinary catheter type: indwelling urethral catheter Encounter type: initial encounter Qualified Code(s): T83.511A - Infection and inflammatory reaction due to indwelling urethral catheter, initial encounter; N39.0 - Urinary tract infection, site not specified Code(s): T83.511A - Infection and inflammatory reaction due to indwelling urethral catheter, initial encounter; N39.0 - Urinary tract infection, site not specified Status: Acute Assessment and Plan: Soils catheter has been removed and replaced multiple times in the last month due to urinary retention. Unclear if this is due to the multiple urinary catheter or the urinary retention. Treatment as noted above. (4) BPH with urinary obstruction: Code(s): N40.1 - Benign prostatic hyperplasia with lower urinary tract symptoms; N13.8 - Other obstructive and reflux uropathy Status: Acute Assessment and Plan: CT abdomen pelvis with no hydronephrosis. Solis catheter placed for urinary retention. Will plan to discharge with urinary catheter. (5) Urinary retention: Code(s): R33.9 - Retention of urine, unspecified Status: Acute Assessment and Plan: See above (6) HLD (hyperlipidemia): Code(s): E78.5 - Hyperlipidemia, unspecified Status: Acute Assessment and Plan: Continue statin (7) Chronic GERD: Code(s): K21.9 - Gastro-esophageal reflux disease without esophagitis Status: Acute Assessment and Plan: Continue PPI (8) Type 2 diabetes mellitus with hyperglycemia, without long-term current use of insulin: Code(s): E11.65 - Type 2 diabetes mellitus with hyperglycemia Status: Acute Assessment and Plan: Sliding scale insulin Hold metformin Diabetic diet -Aspart 3 units TIDWM (9) Electrolyte abnormality: Code(s): E87.8 - Other disorders of electrolyte and fluid balance, not elsewhere classified Status: Acute Assessment and Plan: Replete as needed (10) Diastolic dysfunction: Code(s): I51.89 - Other ill-defined heart diseases Status: Acute Assessment and Plan: Stable. Will monitor. (11) Coronary artery disease: Code(s): I25.10 - Atherosclerotic heart disease of [place] coronary artery without angina pectoris Status: Acute Assessment and Plan: Nonobstructing CAD o
[2022-07-21 16:41] LABS: Glucose Point of Care 169 mg/dl (65-105)
[2022-07-21 20:17] VITALS: BP 128/78; PULSE 68; RESP 18; TEMP 36.1; O2SAT 100
[2022-07-21 21:43] LABS: Glucose Point of Care 211 mg/dl (65-105)
[2022-07-22 04:39] VITALS: BP 107/62; PULSE 53; RESP 16; TEMP 36.6; O2SAT 98
[2022-07-22 05:54] LABS: Basophils Absolute Auto 0.2 K/mm3 (0.0-0.1); Basophils Percent Auto 1.7 % (0.2-1.2); Eosinophils Absolute Auto 0.2 K/mm3 (0-0.3); Eosinophils Percent Auto 1.5 % (0-4.4); Hemoglobin 13.6 g/dL (14.0-18.0); Immature Granulocyte Absolute 0.72 K/mm3 (0.00-0.031); Lymphocytes Absolute Auto 2.72 K/mm3 (0.9-3.2); Lymphocytes Percent Auto 18.8 % (18.3-44.2); Mean Corpuscular HGB Conc 33.2 g/dl (32-36); Mean Corpuscular Hemoglobin 28.2 pg (26-34); Mean Corpuscular Volume 85.1 fl (80-100); Mean Platelet Volume 8.8 fl (7.4-10.4); Monocytes Absolute Auto 0.9 K/mm3 (0.1-0.6); Neutrophils Absolute Auto 9.7 K/mm3 (1.3-6.7); Platelet Count Result 338 k/mm3 (150-375); Red Blood Count 4.82 M/mm3 (4.6-6.20); Red Cell Distribution Width 12.5 % (11.5-14.5); White Blood Count 14.5 K/mm3 (4.5-10.0)
[2022-07-22 06:13] LABS: Anion Gap 7 mmol/L (8-16); Blood Urea Nitrogen 24 mg/dL (9-20); Calcium 8.8 mg/dL (8.4-10.2); Carbon Dioxide 28 mmol/L (22-30); Chloride 98 mmol/L (98-107); Estimated CRCL calculation 62 ml/min; Estimated Glomerular Filt Rate > 60; Glucose 172 mg/dL (65-110); Potassium 4.6 mmol/L (3.4-5.0); Sodium 133 mmol/L (137-145)
[2022-07-22 08:57] LABS: Glucose Point of Care 151 mg/dl (65-105)
[2022-07-22] MEDS: lisinopriL 20 MG TABLET PO (09:10)
[2022-07-22] MEDS: amLODIPine BESYLATE 5 MG TABLET PO (09:10)
[2022-07-22] MEDS: MULTIVITAMINS THERAPEUTIC TAB (*BKC) 1 TABLET PO (09:10)
[2022-07-22] MEDS: ASPIRIN 81 MG ENTERIC TABLET PO (09:11)
[2022-07-22] MEDS: INDAPAMIDE 2.5 MG TABLET PO (09:11)
[2022-07-22] MEDS: INSULIN ASPART (*BKC) 100 UNITS/ML SUB-Q ×4 (09:11→16:39)
[2022-07-22] MEDS: ACETAMINOPHEN 325 MG TABLET 650 MG PO (09:18)
[2022-07-22 12:45] LABS: Glucose Point of Care 219 mg/dl (65-105)
--- NOTE | 2022-07-22 16:04 | WPDUROPN2 ---
Progress Note: A&P Assessment and Plan (1) Bacteremia due to Pseudomonas: Code(s): R78.81 - Bacteremia; B96.5 - Pseudomonas (aeruginosa) (mallei) (pseudomallei) as the cause of diseases classified elsewhere Status: Acute (2) Pyelonephritis: Code(s): N12 - Tubulo-interstitial nephritis, not specified as acute or chronic Status: Acute Assessment and Plan: Patient is improved, he is afebrile, however his WBC has risen. Continue antibiotics and repeat urine culture to ensure infection has resolved in the urine. (3) BPH with urinary obstruction: Code(s): N40.1 - Benign prostatic hyperplasia with lower urinary tract symptoms; N13.8 - Other obstructive and reflux uropathy Status: Acute Assessment and Plan: The patient wishes to have his delgado out and have a voiding trial, but we had a long discussion that he has failed many of them and he needs a cysto and a TURP. He should keep his delgado in place until his cystoscopy in the office. We will attempt to schedule it next week if he is discharged and urine culture is negative. He is not tolerant of the delgado, so I suggested he apply Neosporin BID to the irritated area at the meatus and keep the delgado in instead of doing another voiding trial as it would cause more pain and risk of infection. (4) Urinary retention: Code(s): R33.9 - Retention of urine, unspecified Status: Acute Subjective Subjective Date/Time Seen: 07/22/22 16:04 The patient is not tolerating his delgado catheter well, he c/o pain at the meatus. His urine culture on 07/12/22 grew Pseudomonas. His WBC has risen today to 14.5, creatinine remains stable at 0.80. He is unable to take Tamsulosin d/t side effects and has failed Urolift. Review of Systems Respiratory: Respiratory: Reports no additional respiratory complaints Gastrointestinal: Gastrointestinal: Denies vomiting Exam Const: General: cooperative Resp: Effort & Inspection: normal respiratory effort Cardio: Rate: regular rate GI: GI Palp: Yes Soft to palpation and No Tenderness to palpation present (GI) : General: Yes no CVA tenderness Meatus: meatus normal, no meatla discharge, No Blood at meatus present and Erythema at meatus Urinary Catheter: Urinary Catheter: patent and draining and urine clear Extrem: Right lower extremity: no edema Left lower extremity: no edema Objective Data Vital Signs Vital Signs: Vital Signs - 24 hr 07/21/22 20:17 07/22/22 04:39 07/22/22 09:00 Temperature 97 F L 97.9 F Pulse Rate 68 53 L Respiratory Rate 18 16 Blood Pressure 128/78 107/62 Pulse Oximetry 100 98 Oxygen Delivery Room Air Intake/Output Intake/Output: Intake & Output 07/19/22 07/20/22 07/21/22 07/22/22 23:59 23:59 23:59 23:59 Intake Total 1220 1360 1970 930 Output Total 0 1999 1999 1249 Balance -980 -640 -30 -320 Meds/Results Medications: Active Medications Generic Name Dose Route Start Last Admin Trade Name Freq PRN Reason Stop Dose Admin Acetaminophen 650 mg 07/12/22 19:58 07/22/22 09:18 Acetaminophen 325 Mg Tablet PO 650 mg Q4H PRN Administration Mild Pain (1-3) or Fever Amlodipine Besylate 5 mg 07/16/22 11:30 07/22/22 09:10 Amlodipine Besylate 5 Mg Tablet PO 5 mg QAM GINNY Administration Aspirin 81 mg 07/13/22 09:00 07/22/22 09:11 Aspirin 81 Mg Enteric Tablet PO 81 mg QAM GINNY Administration Dextrose 12.5 gm 07/13/22 00:02 Dextrose 50% 25 Gm/50 Ml Syringe IV PUSH PRN PRN Hypoglycemia Protocol Enoxaparin Sodium 40 mg 07/13/22 09:00 07/22/22 09:20 Enoxaparin 40 Mg/0.4 Ml Syringe SUB-Q Not Given DAILY GINNY Glucagon 1 mg 07/13/22 00:02 Glucagon For Inj 1 Mg Vial IM PRN PRN Hypoglycemia Protocol Glucose 15 gm 07/13/22 00:02 Glucose Oral Gel 15 Gm Of Glucse In 37.5 Gm Tube PO PRN PRN Hypoglycemia Protocol Dextrose 1,000 mls @ 100 mls/hr 07/13/22
[2022-07-22 16:21] VITALS: BP 109/65; PULSE 63; RESP 18; TEMP 36.9; O2SAT 98
--- NOTE | 2022-07-22 16:33 | PM.IMPN ---
Progress Note: A&P Assessment and Plan (1) Sepsis: Code(s): A41.9 - Sepsis, unspecified organism Status: Acute Assessment and Plan: Sepsis secondary to complicated urinary tract infection. Blood cultures 2/2 with pseudomonas and urine culture growing ESBL klebsiella and pseudomonas. Ceftriaxone started in ED and switched to cefepime 07/14/22 after discussion with ID pharmacist. Repeat cultures from 07/15 & 07/17 with no growth. -Imipenem 500 mg IV q6h -Started treatment on 07/15 but last switched antibiotics on 07/17 -Form signed for Policy And Planning Manager for home antibiotics 07/22/2022 interval history: patient states is feeling much better compared to when he arrived denies any fever or chills, patient blood cultures positive for Pseudomonas and urine is growing Klebsiella pneumonia ESBL patient is being treated with imipenem will cover both organisms, patient will need additional 2 days of IV and will complete the course on on MondayJuly 24, today patient was seen by Urology as patient is requesting to remove the Solis, urologist suggested to continue as patient has failed several a voiding trial patient will need cystoscopy and TURP, patient agreed with plan, again discussed with pharmacy id and further recommendation to follow (2) Bacteremia due to Pseudomonas: Code(s): R78.81 - Bacteremia; B96.5 - Pseudomonas (aeruginosa) (mallei) (pseudomallei) as the cause of diseases classified elsewhere Status: Acute Assessment and Plan: 2/2 blood cultures with pseudomonas. 07/15 &07/17 cultures with no growth. -Imipenem 500 mg IV q6h for now (3) UTI (urinary tract infection) due to urinary indwelling Solis catheter: Qualifiers: Indwelling urinary catheter type: indwelling urethral catheter Encounter type: initial encounter Qualified Code(s): T83.511A - Infection and inflammatory reaction due to indwelling urethral catheter, initial encounter; N39.0 - Urinary tract infection, site not specified Code(s): T83.511A - Infection and inflammatory reaction due to indwelling urethral catheter, initial encounter; N39.0 - Urinary tract infection, site not specified Status: Acute Assessment and Plan: Solis catheter has been removed and replaced multiple times in the last month due to urinary retention. Unclear if this is due to the multiple urinary catheter or the urinary retention. Treatment as noted above. (4) BPH with urinary obstruction: Code(s): N40.1 - Benign prostatic hyperplasia with lower urinary tract symptoms; N13.8 - Other obstructive and reflux uropathy Status: Acute Assessment and Plan: CT abdomen pelvis with no hydronephrosis. Solis catheter placed for urinary retention. Will plan to discharge with urinary catheter. (5) Urinary retention: Code(s): R33.9 - Retention of urine, unspecified Status: Acute Assessment and Plan: See above (6) HLD (hyperlipidemia): Code(s): E78.5 - Hyperlipidemia, unspecified Status: Acute Assessment and Plan: Continue statin (7) Chronic GERD: Code(s): K21.9 - Gastro-esophageal reflux disease without esophagitis Status: Acute Assessment and Plan: Continue PPI (8) Type 2 diabetes mellitus with hyperglycemia, without long-term current use of insulin: Code(s): E11.65 - Type 2 diabetes mellitus with hyperglycemia Status: Acute Assessment and Plan: Sliding scale insulin Hold metformin Diabetic diet -Aspart 3 units TIDWM (9) Electrolyte abnormality: Code(s): E87.8 - Other disorders of electrolyte and fluid balance, not elsewhere classified Status: Acute Assessment and Plan: Replete as needed (10) Diastolic dysfunction: Code(s): I51.89 - Other ill-defined heart diseases Status: Acute Assessment and Plan: Stable. W
[2022-07-22] MEDS: NEOMYCIN/POLYMYXIN/BACITRACIN OINTMENT 15 GM TUBE 1 APPLIC TOPICAL (16:39)
[2022-07-22 16:43] LABS: Glucose Point of Care 167 mg/dl (65-105)
[2022-07-22 20:32] VITALS: BP 109/70; PULSE 65; RESP 20; TEMP 36.2; O2SAT 100
[2022-07-22 20:49] LABS: Glucose Point of Care 126 mg/dl (65-105)
[2022-07-22 22:57] VITALS: PULSE 62; RESP 19; O2SAT 97
[2022-07-23 02:58] VITALS: PULSE 61; RESP 15; O2SAT 98
[2022-07-23 05:41] VITALS: BP 108/51; PULSE 50; RESP 18; TEMP 36.1; O2SAT 98
[2022-07-23 05:50] LABS: Basophils Absolute Auto 0.2 K/mm3 (0.0-0.1); Basophils Percent Auto 1.5 % (0.2-1.2); Eosinophils Absolute Auto 0.2 K/mm3 (0-0.3); Eosinophils Percent Auto 1.6 % (0-4.4); Hematocrit 40.4 % (42.0-52.0); Hemoglobin 13.4 g/dL (14.0-18.0); Immature Granulocyte Absolute 0.51 K/mm3 (0.00-0.031); Immature Granulocyte Percent A 3.9 % (0-0.5); Lymphocytes Absolute Auto 2.62 K/mm3 (0.9-3.2); Lymphocytes Percent Auto 20.1 % (18.3-44.2); Mean Corpuscular HGB Conc 33.2 g/dl (32-36); Mean Corpuscular Hemoglobin 28.1 pg (26-34); Mean Corpuscular Volume 84.7 fl (80-100); Mean Platelet Volume 8.7 fl (7.4-10.4); Monocytes Absolute Auto 0.9 K/mm3 (0.1-0.6); Monocytes Percent Auto 6.7 % (2.6-8.5); Neutrophils Absolute Auto 8.6 K/mm3 (1.3-6.7); Neutrophils Percent Auto 66.2 % (45.5-73.1); Platelet Count Result 323 k/mm3 (150-375); Red Blood Count 4.77 M/mm3 (4.6-6.20); Red Cell Distribution Width 12.7 % (11.5-14.5); White Blood Count 13.1 K/mm3 (4.5-10.0)
[2022-07-23 06:03] LABS: Anion Gap 12 mmol/L (8-16); Blood Urea Nitrogen 26 mg/dL (9-20); Calcium 8.5 mg/dL (8.4-10.2); Carbon Dioxide 25 mmol/L (22-30); Chloride 99 mmol/L (98-107); Estimated CRCL calculation 62 ml/min; Estimated Glomerular Filt Rate > 60; Glucose 150 mg/dL (65-110); Potassium 4.2 mmol/L (3.4-5.0); Sodium 136 mmol/L (137-145)
[2022-07-23 08:17] LABS: Glucose Point of Care 181 mg/dl (65-105)
[2022-07-23] MEDS: amLODIPine BESYLATE 5 MG TABLET PO (08:49)
[2022-07-23] MEDS: INSULIN ASPART (*BKC) 100 UNITS/ML SUB-Q ×3 (08:49→17:20)
[2022-07-23] MEDS: NEOMYCIN/POLYMYXIN/BACITRACIN OINTMENT 15 GM TUBE 1 APPLIC TOPICAL ×2 (08:49→17:22)
[2022-07-23] MEDS: lisinopriL 20 MG TABLET PO (08:49)
[2022-07-23] MEDS: ASPIRIN 81 MG ENTERIC TABLET PO (08:49)
[2022-07-23] MEDS: INDAPAMIDE 2.5 MG TABLET PO (08:49)
[2022-07-23] MEDS: MULTIVITAMINS THERAPEUTIC TAB (*BKC) 1 TABLET PO (08:49)
[2022-07-23 12:17] LABS: Glucose Point of Care 169 mg/dl (65-105)
--- NOTE | 2022-07-23 13:11 | PM.IMPN ---
Progress Note: A&P Assessment and Plan (1) Sepsis: Code(s): A41.9 - Sepsis, unspecified organism Status: Acute Assessment and Plan: Sepsis secondary to complicated urinary tract infection. Blood cultures 2/2 with pseudomonas and urine culture growing ESBL klebsiella and pseudomonas. Ceftriaxone started in ED and switched to cefepime 07/14/22 after discussion with ID pharmacist. Repeat cultures from 07/15 & 07/17 with no growth. -Imipenem 500 mg IV q6h -Started treatment on 07/15 but last switched antibiotics on 07/17 -Form signed for Slate Splitter for home antibiotics 07/23/2022 interval history: patient states is feeling much better compared to when he arrived denies any fever or chills, patient blood cultures positive for Pseudomonas and urine is growing Klebsiella pneumonia ESBL patient is being treated with imipenem will cover both organisms, patient will need additional 1 day of IV and will complete the course on MondayJuly 24, on 07/22 patient was seen by Urology as patient is requesting to remove the Solis, urologist suggested to continue as patient has failed several a voiding trial patient will need cystoscopy and TURP, patient agreed with plan, again discussed with pharmacy id and further recommendation to follow, patient has no new complaints (2) Bacteremia due to Pseudomonas: Code(s): R78.81 - Bacteremia; B96.5 - Pseudomonas (aeruginosa) (mallei) (pseudomallei) as the cause of diseases classified elsewhere Status: Acute Assessment and Plan: 2/2 blood cultures with pseudomonas. 07/15 &07/17 cultures with no growth. -Imipenem 500 mg IV q6h for now (3) UTI (urinary tract infection) due to urinary indwelling Solis catheter: Qualifiers: Indwelling urinary catheter type: indwelling urethral catheter Encounter type: initial encounter Qualified Code(s): T83.511A - Infection and inflammatory reaction due to indwelling urethral catheter, initial encounter; N39.0 - Urinary tract infection, site not specified Code(s): T83.511A - Infection and inflammatory reaction due to indwelling urethral catheter, initial encounter; N39.0 - Urinary tract infection, site not specified Status: Acute Assessment and Plan: Solis catheter has been removed and replaced multiple times in the last month due to urinary retention. Unclear if this is due to the multiple urinary catheter or the urinary retention. Treatment as noted above. (4) BPH with urinary obstruction: Code(s): N40.1 - Benign prostatic hyperplasia with lower urinary tract symptoms; N13.8 - Other obstructive and reflux uropathy Status: Acute Assessment and Plan: CT abdomen pelvis with no hydronephrosis. Solis catheter placed for urinary retention. Will plan to discharge with urinary catheter. (5) Urinary retention: Code(s): R33.9 - Retention of urine, unspecified Status: Acute Assessment and Plan: See above (6) HLD (hyperlipidemia): Code(s): E78.5 - Hyperlipidemia, unspecified Status: Acute Assessment and Plan: Continue statin (7) Chronic GERD: Code(s): K21.9 - Gastro-esophageal reflux disease without esophagitis Status: Acute Assessment and Plan: Continue PPI (8) Type 2 diabetes mellitus with hyperglycemia, without long-term current use of insulin: Code(s): E11.65 - Type 2 diabetes mellitus with hyperglycemia Status: Acute Assessment and Plan: Sliding scale insulin Hold metformin Diabetic diet -Aspart 3 units TIDWM (9) Electrolyte abnormality: Code(s): E87.8 - Other disorders of electrolyte and fluid balance, not elsewhere classified Status: Acute Assessment and Plan: Replete as needed (10) Diastolic dysfunction: Code(s): I51.89 - Other ill-defined heart diseases Status: Acute
[2022-07-23 14:00] VITALS: BP 113/59; PULSE 66; RESP 20; TEMP 36.3; O2SAT 100
[2022-07-23 17:19] LABS: Glucose Point of Care 112 mg/dl (65-105)
[2022-07-23 20:04] VITALS: BP 109/56; PULSE 67; RESP 18; TEMP 36.6; O2SAT 99
[2022-07-23 20:17] LABS: Glucose Point of Care 249 mg/dl (65-105)
[2022-07-23 22:10] VITALS: PULSE 73; RESP 17; O2SAT 98
[2022-07-24 02:45] VITALS: PULSE 67; RESP 16; O2SAT 98
[2022-07-24 05:16] VITALS: BP 101/60; PULSE 53; RESP 18; TEMP 37.1; O2SAT 99
[2022-07-24 05:40] LABS: Basophils Absolute Auto 0.1 K/mm3 (0.0-0.1); Eosinophils Absolute Auto 0.2 K/mm3 (0-0.3); Eosinophils Percent Auto 1.6 % (0-4.4); Hematocrit 41.3 % (42.0-52.0); Hemoglobin 13.3 g/dL (14.0-18.0); Immature Granulocyte Absolute 0.37 K/mm3 (0.00-0.031); Immature Granulocyte Percent A 3.1 % (0-0.5); Lymphocytes Absolute Auto 2.33 K/mm3 (0.9-3.2); Lymphocytes Percent Auto 19.8 % (18.3-44.2); Mean Corpuscular HGB Conc 32.2 g/dl (32-36); Mean Corpuscular Hemoglobin 28.4 pg (26-34); Mean Corpuscular Volume 88.2 fl (80-100); Mean Platelet Volume 8.6 fl (7.4-10.4); Monocytes Absolute Auto 0.8 K/mm3 (0.1-0.6); Monocytes Percent Auto 6.7 % (2.6-8.5); Neutrophils Percent Auto 67.8 % (45.5-73.1); Platelet Count Result 295 k/mm3 (150-375); Red Blood Count 4.68 M/mm3 (4.6-6.20); Red Cell Distribution Width 12.8 % (11.5-14.5); White Blood Count 11.8 K/mm3 (4.5-10.0)
[2022-07-24 05:48] LABS: Anion Gap 9 mmol/L (8-16); Blood Urea Nitrogen 24 mg/dL (9-20); Calcium 8.7 mg/dL (8.4-10.2); Carbon Dioxide 28 mmol/L (22-30); Chloride 98 mmol/L (98-107); Estimated CRCL calculation 55 ml/min; Estimated Glomerular Filt Rate > 60; Glucose 155 mg/dL (65-110); Potassium 4.6 mmol/L (3.4-5.0); Sodium 135 mmol/L (137-145)
[2022-07-24 08:04] LABS: Glucose Point of Care 182 mg/dl (65-105)
[2022-07-24] MEDS: amLODIPine BESYLATE 5 MG TABLET PO (08:14)
[2022-07-24] MEDS: INDAPAMIDE 2.5 MG TABLET PO (08:14)
[2022-07-24] MEDS: MULTIVITAMINS THERAPEUTIC TAB (*BKC) 1 TABLET PO (08:14)
[2022-07-24] MEDS: ASPIRIN 81 MG ENTERIC TABLET PO (08:14)
[2022-07-24] MEDS: lisinopriL 20 MG TABLET PO (08:14)
[2022-07-24] MEDS: INSULIN ASPART (*BKC) 100 UNITS/ML SUB-Q ×2 (08:15→12:45)
[2022-07-24] MEDS: NEOMYCIN/POLYMYXIN/BACITRACIN OINTMENT 15 GM TUBE 1 APPLIC TOPICAL (08:15)
[2022-07-24 12:16] LABS: Glucose Point of Care 168 mg/dl (65-105)
--- NOTE | 2022-07-24 13:57 | PM.DS ---
DS: Admitting Diagnosis Discharge Date 07/24/2022 Admitting Diagnosis Fevers, pain at the tip of his penis DS: Discharge Diagnosis Discharge Diagnosis (1) Sepsis: Code(s): A41.9 - Sepsis, unspecified organism Status: Acute Assessment and Plan: Sepsis secondary to complicated urinary tract infection. Blood cultures 2/2 with pseudomonas and urine culture growing ESBL klebsiella and pseudomonas. Ceftriaxone started in ED and switched to cefepime 07/14/22 after discussion with ID pharmacist. Repeat cultures from 07/15 & 07/17 with no growth. -Imipenem 500 mg IV q6h -Started treatment on 07/15 but last switched antibiotics on 07/17 -Form signed for Gasoline Catalyst Operator for home antibiotics 07/23/2022 interval history: patient states is feeling much better compared to when he arrived denies any fever or chills, patient blood cultures positive for Pseudomonas and urine is growing Klebsiella pneumonia ESBL patient is being treated with imipenem will cover both organisms, patient will need additional 1 day of IV and will complete the course on MondayJuly 24, on 07/22 patient was seen by Urology as patient is requesting to remove the Solis, urologist suggested to continue as patient has failed several a voiding trial patient will need cystoscopy and TURP, patient agreed with plan, again discussed with pharmacy id and further recommendation to follow, patient has no new complaints (2) Bacteremia due to Pseudomonas: Code(s): R78.81 - Bacteremia; B96.5 - Pseudomonas (aeruginosa) (mallei) (pseudomallei) as the cause of diseases classified elsewhere Status: Acute Assessment and Plan: 2/2 blood cultures with pseudomonas. 07/15 &07/17 cultures with no growth. -Imipenem 500 mg IV q6h for now (3) UTI (urinary tract infection) due to urinary indwelling Solis catheter: Qualifiers: Indwelling urinary catheter type: indwelling urethral catheter Encounter type: initial encounter Qualified Code(s): T83.511A - Infection and inflammatory reaction due to indwelling urethral catheter, initial encounter; N39.0 - Urinary tract infection, site not specified Code(s): T83.511A - Infection and inflammatory reaction due to indwelling urethral catheter, initial encounter; N39.0 - Urinary tract infection, site not specified Status: Acute Assessment and Plan: Solis catheter has been removed and replaced multiple times in the last month due to urinary retention. Unclear if this is due to the multiple urinary catheter or the urinary retention. Treatment as noted above. (4) BPH with urinary obstruction: Code(s): N40.1 - Benign prostatic hyperplasia with lower urinary tract symptoms; N13.8 - Other obstructive and reflux uropathy Status: Acute Assessment and Plan: CT abdomen pelvis with no hydronephrosis. Solis catheter placed for urinary retention. Will plan to discharge with urinary catheter. (5) Urinary retention: Code(s): R33.9 - Retention of urine, unspecified Status: Acute Assessment and Plan: See above (6) HLD (hyperlipidemia): Code(s): E78.5 - Hyperlipidemia, unspecified Status: Acute Assessment and Plan: Continue statin (7) Chronic GERD: Code(s): K21.9 - Gastro-esophageal reflux disease without esophagitis Status: Acute Assessment and Plan: Continue PPI (8) Type 2 diabetes mellitus with hyperglycemia, without long-term current use of insulin: Code(s): E11.65 - Type 2 diabetes mellitus with hyperglycemia Status: Acute Assessment and Plan: Sliding scale insulin Hold metformin Diabetic diet -Aspart 3 units TIDWM (9) Electrolyte abnormality: Code(s): E87.8 - Other disorders of electrolyte and fluid balance, not elsewhere classified Status: Acute Assessment and Plan: Replete as needed
[2022-07-25 11:54] LABS: Glucose Point of Care 174 mg/dl (65-105)
--- NOTE | 2022-08-02 02:09 | PC.NURSE ---
POSITIVE BLOOD CULTURES RECEIVED AT [address] CALVIN
== END 2022-07-24 15:00 | disposition home or self-care (01) | DRG 698 ==
LOC: ANHED 20:09 → ANH3MED 21:47 → ANHICU 07-13 07:01 → ANH3MED 07-13 16:20
PROVIDERS: Family Medicine; Nurse Practitioner; Admitting Provider Internal Medicine; Emergency Provider Preventive Medicine Aerospace Medicine; PCP Family Medicine; Visit Provider Family Medicine
DX: T83.511A Infection and inflammatory reaction due to indwelling urethral catheter, initial encounter (principal); A41.52 Sepsis due to Pseudomonas; R65.20 Severe sepsis without septic shock; N13.8 Other obstructive and reflux uropathy; N12 Tubulo-interstitial nephritis, not specified as acute or chronic; N39.0 Urinary tract infection, site not specified; E11.65 Type 2 diabetes mellitus with hyperglycemia; E78.5 Hyperlipidemia, unspecified; E87.8 Other disorders of electrolyte and fluid balance, not elsewhere classified; G47.33 Obstructive sleep apnea (adult) (pediatric); I11.9 Hypertensive heart disease without heart failure; I25.10 Atherosclerotic heart disease of native coronary artery without angina pectoris; K21.9 Gastro-esophageal reflux disease without esophagitis; N40.1 Benign prostatic hyperplasia with lower urinary tract symptoms; N48.89 Other specified disorders of penis; R33.8 Other retention of urine; R31.9 Hematuria, unspecified; Z20.822 Contact with and (suspected) exposure to COVID-19; Z28.21 Immunization not carried out because of patient refusal; Z87.891 Personal history of nicotine dependence; Z86.73 Personal history of transient ischemic attack (TIA), and cerebral infarction without residual deficits; Z79.84 Long term (current) use of oral hypoglycemic drugs
CPT/HCPCS: 36415; 51702; 71045; 71046; 74176; 80048; 80053; 81001; 82948; 83605; 83735; 85025; 85027; 85055; 85610; 85730; 86140; 87040; 87077; 87086; 87186; 87493; 87502; 96361; 96365; 96372; 96375; 99283; 99285; A9270; C9803; G0378; J0692; J0696; J0743; J1650; J1815; J3475; J7030; U0003; U0005

== ENCOUNTER 2022-07-29 08:23 | Outpatient (CLI) | payer MEDICARE, SELFPAY ==
--- NOTE | 2022-07-29 08:47 | ECG_ITS ---
Measurements Intervals [place] Rate: 68 P: -10 MT: 150 QRS: 65 QRSD: 89 T: 43 QT: 403 QTc: 432 Interpretive Statements SINUS RHYTHM BASELINE ARTIFACT- I, II, AVR, AVL, AVF NORMAL ECG NO PREVIOUS ECG AVAILABLE FOR COMPARISON Electronically Signed On 07-29-2022 9:00:55 CDT by Yomi Buckner D.O.
== END 2022-07-29 08:24 | disposition home or self-care (01) ==
PROVIDERS: PCP Physician Assistant; Visit Provider Urology
DX: I10 Essential (primary) hypertension (principal); Z01.818 Encounter for other preprocedural examination
CPT/HCPCS: 93005

== ENCOUNTER 2022-08-03 15:18 | Observation (INO) | payer MEDICARE, SELFPAY ==
[2022-07-28 14:33] VITALS: BMI 25.9
--- NOTE | 2022-07-28 15:04 | PC.NURSE ---
Report to the Outpatient Waiting Room, entrance under the green pavilion located off [facility], at time __11:00AM on date __08/02/22 . Planned Procedure Time: __1:00PM . Time changes happen often and if your time is changed the preop area will call you the afternoon before. - You and your visitor will be asked to self-screen and do not enter if you have any COVID symptoms. - We encourage only one visitor and NO visitors under age 16 are allowed at this time. Your visitor will receive communication by the phone number that is given day of service. - The patient visitor is requested to social distance or may leave the building when not with patient due to restrictions. - A mask is required within the hospital. Patients may have clear liquids (water, carbonated beverages, clear teas, apple juice) until 3 hours prior to surgery with a maximum of 20 ounces. - No food from midnight until time of surgery Take the following medications with a SIP of water the morning of surgery: ____ACETAMINOPHEN NEEDED Medications to discontinue per physician _HOLD ASPIRIN AND VITAMINS/SUPPLEMENTS 7 DAYS PRE-OP PER DR IGLESIAS- LAST DOSE TODAY 07/28/22____ Please no make-up, nail pashto, hairspray, perfume, deodorant, or body powder the day of surgery. No jewelry (including any body piercings) or valuables the day of surgery, leave them at home. Please take a shower or bath the night before, or the morning of, surgery with an antibacterial soap. Wear comfortable, loose fitting clothing. Children are encouraged to wear pajamas. - Jewelry must be removed prior to entering the operating room. Rings and piercings that are not removed may be cut off. - The hospital will not accept responsibility for valuables. - Please leave all valuables, including medications, at home the day of surgery. If you are going home after surgery, a licensed train driver must drive you home. - NO public transportation without another adult. - We recommend that an adult stay with you for 24 hours following discharge. - We also recommend that you do not drive, make important decision, drink alcoholic beverages, or take any drugs that were not prescribed by your health care provider for at least 24 hours after your discharge time. Follow any additional instructions given to you from your surgeon. If you or anyone in your household have experienced Covid symptoms in the past week, please notify your surgeon or the nurse liaison at the phone number below for possible testing. Telephone instructions given to __PATIENT___and asked if any additional questions and then verbalized understanding. Patient advised to call surgeon office or pre surgery nurse liaison [phone] if any additional questions.
[2022-08-02] VITALS (12 sets, daily range): BP systolic 120–159; BP diastolic 64–95; PULSE 55–88; RESP 12–18; TEMP 36.1–36.8; O2SAT 93–100; BMI 25.7
[2022-08-02 11:32] LABS: Glucose Point of Care 119 mg/dl (65-105)
--- NOTE | 2022-08-02 11:34 | WPDANESEPPF ---
Anes - Initial Pre Proc Eval Procedure: Operation Date: 08/02/22 13:00 Proposed Procedures p Trans Urethral Resection Prostate - Kwaku Miranda MD Date/Time: 08/02/22 11:34 Surgeon: Kwaku Miranda MD Pre Op Diagnosis: retention, bph Patient Data Age: 77 Gender: M Height: 1.68 m Weight: 73 kg Allergies Allergy/AdvReac Type Severity Reaction Status Date / Time dutasteride Allergy Unknown IRREG Verified 07/28/22 14:24 HEART, RED FACE tamsulosin [From Flomax] AdvReac Intermediate Palpitation Verified 07/28/22 14:24 s codeine AdvReac Mild NAUSEA Verified 07/28/22 14:24 Iodinated Contrast Media AdvReac Unknown Vomiting Verified 07/28/22 14:24 [id number]-[id number] Reductase AdvReac Unknown Muscle Verified 08/02/22 08:58 Inhibitor Cramps [Sxubrot-Asr-Xhk Reductase Inhibitor] Home Medications Medication Instructions Recorded Confirmed Type multivitamin 1 tablet PO DAILY 10/29/19 07/28/22 History amlodipine 5 mg-benazepril 20 mg 1 cap PO QAM 07/02/22 07/28/22 History capsule indapamide 2.5 mg tablet 2.5 mg PO QAM 07/02/22 07/28/22 History metformin 500 mg tablet 500 mg PO QAM 07/02/22 07/28/22 History omeprazole 20 mg capsule,delayed 20 mg PO DAILY PRN Acid Reflux 07/02/22 07/28/22 History release pitavastatin calcium 2 mg tablet 1 mg PO QAM 07/02/22 07/28/22 History (Livalo) aspirin 81 mg tablet,delayed 81 mg PO QAM #30 tabs 07/24/22 07/28/22 Rx release lidocaine HCl 2 % mucosal jelly 1 applic mucous membrane Q12HR PRN 07/24/22 07/28/22 Rx pain #30 mL neomycin-bacitracn Zn-polymyx 3.5 1 applic topical BID #30 grams 07/24/22 07/28/22 Rx mg-400 unit-5,000 unit/gram top oint (Triple Antibiotic) acetaminophen 500 mg capsule 1,000 mg PO Q6H PRN Pain 07/28/22 07/28/22 History Laboratory Tests 08/02/22 11:31 POC Capillary Glucose 119 mg/dl H mg/dl (65-105) Patient hx anesthesia problems: none Family hx anesthesia problems: none Results Review: All pre-operative results and documents have been reviewed as part of the pre-operative evaluation. 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 Not visualized on the cardiac MRI March 2018 ROSINA (obstructive sleep apnea) Pericarditis Type 2 diabetes mellitus without complication, without long-term current use of insulin Surgical History Surgical History H/O umbilical hernia repair (2016) With mesh placement. History of cardiac catheterization (01/2018) RCA tortuous with minimal luminal irregularities small to medium-sized ramus branch with an ostial stenosis of 50% Family History Family History Father Diabetes mellitus Family history of lung disease Hypertension Family history of chronic obstructive pulmonary disease Family history of type 2 diabetes mellitus Mother Hypertension Social History Social History Social History: He is . They have 2 children and no pets. Code status: Full code Surrogate decision maker: Meena () Smoking packs per day: 1 Smoking cigarettes per day: 20.0 Years smoked: 20 Smoking pack-years: 20.
--- NOTE | 2022-08-02 11:39 | WPDHPUPDATE1 ---
History and Physical Update Update Date/Time: 08/02/22 11:39 History and Physical has been reviewed, including an updated exam of the patient. There are NO changes in the patient's condition. Risks, benefits, and alternatives have been discussed and questions answered. Patient agrees to proceed with procedure. Proceed with transurethral resection of prostate.
[2022-08-02] MEDS: LACTATED RINGERS 1,000 ML 30 ML IV CONT ×2 (11:42→13:45)
[2022-08-02] MEDS: ceFAZolin 2 GM/D5W 50 ML 2 GM/50 ML BAG IVPB (11:58)
[2022-08-02] MEDS: LIDOCAINE HCL 2% GEL UROJET 10 ML PKG MUCOUS MEM ×2 (12:17→21:16)
--- NOTE | 2022-08-02 13:44 | W.PM.PROC2 ---
Procedure Note - Detailed Date of Procedure 08/02/22 Pre-op Diagnosis retention, bph Post-op Diagnosis Same Procedure Performed Transurethral resection of prostate Surgeon Kwaku Miranda MD Anesthesia General Description of Procedure Patient is taken to the operative suite correctly identified. Once anesthesia was obtained was placed in dorsal lithotomy position and prepped and draped usual sterile fashion. Twenty-four [place] resectoscope sheath is inserted the bladder. Both ureteral cc of bills lysed. We went ahead and resected the sulcus of the median lobe bilaterally. This was from the bladder neck to the verumontanum. We then took down the lateral lobes. The median lobe was taken down last. The prior UroLift isatu were visualized in most were resected out. Hemostasis was achieved using a rollerball. 2% viscous lidocaine was inserted into the urethra to [address] connected to continuous bladder irrigation. Patient be admitted for CBI. Will plan on leaving Solis catheter in until Monday at a minimum. Estimated Blood Loss 100 Drains Yes Packing No Pathology Yes Complications No immediate complications Condition Stable Disposition PACU
[2022-08-02] MEDS: fentaNYL CITRATE INJ (*CRX) 100 MCG/2 ML VIAL 25 MCG IV PUSH ×4 (14:09→14:38)
[2022-08-02 14:20] LABS: Glucose Point of Care 136 mg/dl (65-105)
--- NOTE | 2022-08-02 15:15 | ADMGEN ---
This patient, Brown Gifford, was admitted to Medical Room 248-. Patient/family oriented to hospital policies and general routines including ID bracelet, bed and alarms, visiting hours, pain management, procedures, bathroom and other care routines, personal items, smoking policy, room service/diet, and visiting hours. Information on how to activate the Rapid Response Team has been discussed. Patient/Family are encouraged to report perceived risks to care and to ask questions if they do not understand what they are told or what they should do.
[2022-08-02] MEDS: HYOSCYAMINE SULFATE 0.125 MG TABLET SUBLINGUAL (16:00)
[2022-08-02] MEDS: HYDROcodone/acetaminophen (*CRX) 5-325 MG TABLET 1 TAB PO ×2 (16:00→20:08)
[2022-08-02] MEDS: DEXTROSE 5%/LACTATED RINGERS 1,000 ML 125 ML IV CONT (16:01)
[2022-08-02] MEDS: DOCUSATE SODIUM 100 MG CAPSULE PO (16:02)
[2022-08-03] VITALS (7 sets, daily range): BP systolic 94–124; BP diastolic 54–67; PULSE 58–75; RESP 16–18; TEMP 36.4–36.8; O2SAT 96–99
[2022-08-03] MEDS: HYDROcodone/acetaminophen (*CRX) 5-325 MG TABLET 1 TAB PO ×4 (03:20→18:40)
[2022-08-03 06:03] LABS: Hematocrit 35.8 % (42.0-52.0); Hemoglobin 11.9 g/dL (14.0-18.0)
[2022-08-03 06:08] LABS: Anion Gap 10 mmol/L (8-16); Blood Urea Nitrogen 9 mg/dL (9-20); Calcium 8.2 mg/dL (8.4-10.2); Carbon Dioxide 28 mmol/L (22-30); Chloride 98 mmol/L (98-107); Estimated CRCL calculation 62 ml/min; Estimated Glomerular Filt Rate > 60; Glucose 138 mg/dL (65-110); Potassium 4.1 mmol/L (3.4-5.0); Sodium 136 mmol/L (137-145)
[2022-08-03] MEDS: metFORMIN HCL 500 MG TABLET PO (08:59)
[2022-08-03] MEDS: amLODIPine BESYLATE 5 MG TABLET PO (09:00)
[2022-08-03] MEDS: lisinopriL 20 MG TABLET PO (09:00)
[2022-08-03] MEDS: DOCUSATE SODIUM 100 MG CAPSULE PO ×2 (09:00→16:35)
[2022-08-03] MEDS: INDAPAMIDE 2.5 MG TABLET PO (09:00)
[2022-08-03] MEDS: LIDOCAINE HCL 2% GEL UROJET 10 ML PKG MUCOUS MEM (09:01)
--- NOTE | 2022-08-03 12:02 | WPDANESPN ---
Anes - Prog Note Post-Op Date/Time: 08/03/22 12:02 Cardiovascular status: normal Respiratory status: normal Airway patency: baseline Mental status: baseline Post-Op hydration status: normal Vital Signs: Last Vital Signs Temp 36.6 C 08/03/22 10:50 Pulse 68 08/03/22 10:50 Resp 16 08/03/22 10:50 BP 124/56 L 08/03/22 10:50 Pulse Ox 98 08/03/22 10:50 O2 Del Method Room Air 08/02/22 15:00 O2 Flow Rate 8 08/02/22 14:00 Pain Score (VAS): 0 I/O: Intake & Output 08/02/22 08/03/22 08/03/22 23:59 07:59 15:59 Intake Total 810 840 240 Output Total 1425 1200 Balance -615 -360 240 Laboratory Tests 08/03/22 05:23 08/03/22 05:24 08/02/22 08/03/22 08/03/22 14:18 05:23 05:24 Hgb 11.9 L Hct 35.8 L Sodium 136 L Potassium 4.1 Chloride 98 Carbon Dioxide 28 Anion Gap 10 BUN 9 D Creatinine 0.80 Estim Creat Clear Calc 62 Estimated GFR > 60 Glucose 138 H POC Capillary Glucose 136 H Calcium 8.2 L Post-procedural complaints: other Patient Feedback: Patient satisfied with anesthetic care. Patient has no complaints with anesthetic. Only issue is irritation from the catheter.
[2022-08-03 12:14] LABS: Glucose Point of Care 184 mg/dl (65-105)
[2022-08-03] MEDS: CEPHALEXIN 500 MG CAPSULE PO ×3 (12:29→22:07)
--- NOTE | 2022-08-03 13:53 | WPDUROPN2 ---
Progress Note: A&P Assessment and Plan (1) BPH with urinary obstruction: Code(s): N40.1 - Benign prostatic hyperplasia with lower urinary tract symptoms; N13.8 - Other obstructive and reflux uropathy Status: Acute Assessment and Plan: Patient will remain on CBI overnight. Wean CBI to off at 0500 tomorrow morning 08/04/22 and I will re-evaluate around 0800/0900, if clear or light pink we will plan to discharge home with delgado. He agrees with this plan. Subjective Subjective Date/Time Seen: 08/03/22 13:53 TURP Patient doing well, tolerating diet and activity. He has no pain and urine is clear on slow CBI, however when stopped it does turn a kendrick red color at rest. Post Op day: 1 Review of Systems Cardiovascular: Cardiovascular: Denies chest pain Respiratory: Respiratory: Reports no additional respiratory complaints Genitourinary: Genitourinary: Reports hematuria, Denies flank pain and Reports other (meatus tenderness) Exam Const: General: cooperative and comfortable Resp: Effort & Inspection: normal respiratory effort Cardio: Rate: regular rate : General: Yes no CVA tenderness Urinary Catheter: Urinary Catheter: patent and draining, urine clear and urine red Extrem: Right lower extremity: no edema Left lower extremity: no edema Objective Data Vital Signs Vital Signs: Vital Signs - 24 hr 08/02/22 14:00 08/02/22 14:15 08/02/22 14:30 Temperature Pulse Rate 56 L 55 L 56 L Respiratory Rate 14 12 12 Blood Pressure 148/95 H 142/77 H 140/78 Pulse Oximetry 100 95 96 Oxygen Delivery Simple Face Mask Room Air Room Air Oxygen Flow Rate 8 08/02/22 14:45 08/02/22 15:00 08/02/22 15:15 Temperature 97.0 F L Pulse Rate 56 L 58 L 88 Respiratory Rate 12 14 16 Blood Pressure 130/75 141/72 H 151/81 H Pulse Oximetry 93 95 96 Oxygen Delivery Room Air Room Air Oxygen Flow Rate 08/02/22 15:30 08/02/22 16:00 08/02/22 17:00 Temperature 97.0 F L 97.0 F L 97.3 F L Pulse Rate 60 60 58 L Respiratory Rate 16 16 16 Blood Pressure 150/77 H 159/68 H 120/64 Pulse Oximetry 97 98 100 Oxygen Delivery Oxygen Flow Rate 08/02/22 20:48 08/03/22 00:09 08/03/22 03:12 Temperature 98.2 F 97.5 F L 97.6 F Pulse Rate 62 58 L 60 Respiratory Rate 18 18 18 Blood Pressure 128/64 111/59 L 116/67 Pulse Oximetry 97 98 96 Oxygen Delivery Oxygen Flow Rate 08/03/22 10:50 Temperature 97.9 F Pulse Rate 68 Respiratory Rate 16 Blood Pressure 124/56 L Pulse Oximetry 98 Oxygen Delivery Oxygen Flow Rate Intake/Output Intake/Output: Intake & Output 07/31/22 08/01/22 08/02/22 08/03/22 23:59 23:59 23:59 23:59 Intake Total 4060 1320 Output Total 3425 1200 Balance 635 120 Meds/Results Medications: Active Medications Generic Name Dose Route Start Last Admin Trade Name Freq PRN Reason Stop Dose Admin Hydrocodone Bitart/Acetaminophen 1 tab 08/02/22 15:03 08/03/22 08:58 Hydrocodone/Acetaminophen (*Crx) 5-325 Mg Tablet PO 1 tab Q4H PRN Administration Pain Rated 1-6 Amlodipine Besylate 5 mg 08/03/22 09:00 08/03/22 09:00 Amlodipine Besylate 5 Mg Tablet PO 5 mg QAM GINNY Administration Cephalexin HCl 500 mg 08/03/22 13:00 08/03/22 12:29 Cephalexin 500 Mg Capsule PO 500 mg QID GINNY Administration Docusate Sodium 100 mg 08/02/22 17:00 08/03/22 09:00 Docusate Sodium 100 Mg Capsule PO 100 mg BID GINNY Administration Hyoscyamine 0.125 mg 08/02/22 15:03 08/02/22 16:00 Hyoscyamine Sulfate 0.125 Mg Tablet SUBLINGUAL 0.125 mg Q6H PRN Administration Bladder Spasm Indapamide 2.5 mg 08/03/22 09:00 08/03/22 09:00 Indapamide 2.5 Mg Tablet PO 2.5 mg QAM GINNY Administration Lidocaine HCl 1 ml 08/02/22 20:59 08/03/22 09:01 Lidocaine Hcl 2% Gel Urojet 10 Ml Pkg MUCOUS MEM 1 ml Q12HR PRN Administration Pain Lisinopril 20 mg 08/03/22 09:00 08/03/22 09:00 Lisinopril 20 Mg Tablet PO 20 m
--- NOTE | 2022-08-03 14:16 | PC.NURSE ---
On 08/03/22, the student, [Ivone Coelho], provided care and completed [facility] documentation on this patient. I have reviewed the student's documentation and agree with the findings.
[2022-08-03 17:09] LABS: Glucose Point of Care 136 mg/dl (65-105)
[2022-08-04] MEDS: HYDROcodone/acetaminophen (*CRX) 5-325 MG TABLET 1 TAB PO ×3 (01:23→10:59)
[2022-08-04 03:50] VITALS: PULSE 63; O2SAT 98
[2022-08-04] MEDS: metFORMIN HCL 500 MG TABLET PO (08:47)
[2022-08-04] MEDS: CEPHALEXIN 500 MG CAPSULE PO (08:48)
[2022-08-04] MEDS: DOCUSATE SODIUM 100 MG CAPSULE PO (08:48)
[2022-08-04] MEDS: LIDOCAINE HCL 2% GEL UROJET 10 ML PKG MUCOUS MEM (08:49)
[2022-08-04 08:58] VITALS: BP 102/53; PULSE 69; RESP 18; TEMP 36.7; O2SAT 97
[2022-08-04 11:28] LABS: Glucose Point of Care 159 mg/dl (65-105)
--- NOTE | 2022-08-04 13:07 | WPDUROPN2 ---
Progress Note: A&P Assessment and Plan (1) BPH with urinary obstruction: Code(s): N40.1 - Benign prostatic hyperplasia with lower urinary tract symptoms; N13.8 - Other obstructive and reflux uropathy Status: Acute Assessment and Plan: Ok to discharge home with delgado to f/u Monday in the office for a voiding trial. Subjective Subjective Date/Time Seen: 08/04/22 13:07 TURP Patient doing well, urine is much more clear off CBI today, only slightly bloody. Post Op day: 2 Review of Systems Cardiovascular: Cardiovascular: Denies chest pain Respiratory: Respiratory: Reports no additional respiratory complaints Genitourinary: Genitourinary: Reports hematuria, Denies genital pain, Denies dysuria, Denies flank pain, Denies testicular pain, Denies urinary frequency, Denies urinary hesitancy, Denies urinary incontinence and Denies urinary urgency Exam Const: General: cooperative Resp: Effort & Inspection: normal respiratory effort Cardio: Rate: regular rate GI: GI Palp: Yes Soft to palpation and No Tenderness to palpation present (GI) : General: No no CVA tenderness Meatus: meatus normal and No Blood at meatus present Urinary Catheter: Urinary Catheter: patent and draining, urine clear and urine pink Extrem: Right lower extremity: no edema Left lower extremity: no edema Objective Data Vital Signs Vital Signs: Vital Signs - 24 hr 08/03/22 14:00 08/03/22 17:30 08/03/22 21:43 Temperature 98.1 F 98.3 F 98.1 F Pulse Rate 67 75 68 Respiratory Rate 16 16 16 Blood Pressure 94/54 L 104/56 L 118/56 L Pulse Oximetry 99 97 96 Oxygen Delivery 08/03/22 23:05 08/04/22 03:50 08/04/22 08:58 Temperature 98.1 F Pulse Rate 67 63 69 Respiratory Rate 18 Blood Pressure 102/53 L Pulse Oximetry 98 98 97 Oxygen Delivery Autopap Autopap Intake/Output Intake/Output: Intake & Output 08/01/22 08/02/22 08/03/22 08/04/22 23:59 23:59 23:59 23:59 Intake Total 4060 3920 240 Output Total 3425 3950 1800 Balance 381 -62 -8495 Labs Labs: Laboratory Results - last 24 hr 08/03/22 08/04/22 17:06 08:54 POC Capillary Glucose 136 H 159 H
--- NOTE | 2022-08-04 13:10 | PM.DS ---
DS: Admitting Diagnosis Discharge Date 08/04/22 Admitting Diagnosis BPH DS: Discharge Diagnosis Discharge Diagnosis Plan BPH DS: Summary Hospital Course Hospital Course: Patient underwent a TURP on 08/02/[address] Miranda and tolerated the procedure well. He was then transferred to recovery in stable condition and to the floor for further observation. He continued to have gross hematuria off CBI POD #1, but was otherwise tolerating pain, diet and activity well. The decision was made to keep him overnight and run CBI until early this morning to re-assess. CBI ran out around 03:30am and no new bags were started. His urine has remained clear/light pink since. We will discharge home today with his delgado to f/u on Monday for a voiding trial in the office. Resume a diet as tolerated, activity, no straining, Resume all home medications except blood pressure medications which should be held until hypotension resolves, and ASA held until Monday. He will start Cephalexin and take Tramadol PRN for pain. Time spent discussing smoking cessation with patient: more than 10 minutes Time Spent with Patient Time attestation: Total time spent providing and/or coordinating discharge services: Exam Const: General: cooperative Resp: Effort & Inspection: normal respiratory effort Cardio: Rate: regular rate GI: GI Palp: Yes Soft to palpation and No Tenderness to palpation present (GI) : General: Yes no CVA tenderness Urinary Catheter: Urinary Catheter: patent and draining and urine pink Extrem: Right lower extremity: no edema Left lower extremity: no edema DS: Data Data Completed and Pending Pending studies at discharge: Pending at discharge 08/02/22 12:23 Surgical [PTH] Routine Labs on day of discharge: Labs from last 24 hours 08/04/22 08/03/22 08:54 17:06 POC Capillary Glucose 159 H 136 H Discharge Plan Discharge Attending physician on discharge: Kwaku Miranda Discharging Clinician: Isis Wells Anticipated Discharge Date/Time: 08/04/22 09:38 Patient Disposition: Home, Self-Care Activity: may shower Diet: as tolerated Discharge Instructions: You will follow up in the office on Monday, August 08 at 10:45am to have a voiding trial with Isis GARDINER. If you develop dark bloody urine with clots, a fever, severe abdominal pain or a catheter that is not draining call the office or go to the ER. Finish your antibiotics and you may take pain medications as prescribed, ok to continue to apply ointment to the penis for irritation control. You may shower and wash catheter tubing with soap and water to prevent infection. Stand Alone Forms: Avoid NSAIDs, Fiber Supplement, General Discharge Instructions Follow-up/Referrals: Kwaku Miranda MD [Physician] - Discharge Medications: New cephalexin 500 mg capsule 500 mg PO Q12H Qty: 10 0RF tramadol 100 mg tablet 100 mg PO Q4-6H PRN (Reason: pain) Qty: 20 0RF Rx Instructions: DNExceed 4 doses/24h Continued multivitamin Tablet 1 tablet PO DAILY Triple Antibiotic 3.5mg-400 unit- 5,000 unit/gram Ointment 1 applic topical BID Qty: 30 0RF lidocaine HCl 2 % Jelly 1 applic mucous membrane Q12HR PRN (Reason: pain) Qty: 30 0RF Rx Instructions: TO PENIS TIP acetaminophen 500 mg Capsule 1,000 mg PO Q6H PRN (Reason: Pain) omeprazole 20 mg capsule,delayed release(DR/EC) 20 mg PO DAILY PRN (Reason: Acid Reflux) Livalo 2 mg tablet 1 mg PO QAM metformin 500 mg tablet 500 mg PO QAM Held aspirin 81 mg Tablet,Delayed Release (Dr/Ec) 81 mg PO QAM Qty: 30 0RF Hold Instructions: Resume on 08/08/22. indapamide 2.5 mg tablet 2.5 mg PO QAM Hold Instructions: Resume on 08/04/22. Until BP stabilizes. amlodipine-benazepril 5-20 mg capsule 1 cap PO QAM Hold Instructions: Resume on 08/04/22. Until BP stabilizes. Date of admis
== END 2022-08-04 11:18 | disposition home or self-care (01) ==
LOC: ANHSURGERY 15:37 → ANH2MED 15:37
PROVIDERS: Admitting Provider Urology; PCP Physician Assistant; Visit Provider Urology
PROC: 0VT08ZZ Resection of Prostate, Via Natural or Artificial Opening Endoscopic (ICD-10-PCS; CPT 52601; principal; 2022-08-02 13:00)
DX: N40.1 Benign prostatic hyperplasia with lower urinary tract symptoms (principal); R33.8 Other retention of urine; R97.20 Elevated prostate specific antigen [PSA]; E78.5 Hyperlipidemia, unspecified; I25.10 Atherosclerotic heart disease of native coronary artery without angina pectoris; I11.9 Hypertensive heart disease without heart failure; G47.33 Obstructive sleep apnea (adult) (pediatric); E11.9 Type 2 diabetes mellitus without complications; F10.90 Alcohol use, unspecified, uncomplicated; Z87.891 Personal history of nicotine dependence; Z79.84 Long term (current) use of oral hypoglycemic drugs; Z79.82 Long term (current) use of aspirin; Z79.899 Other long term (current) drug therapy; Z83.3 Family history of diabetes mellitus; Z82.49 Family history of ischemic heart disease and other diseases of the circulatory system
CPT/HCPCS: 52601; 36415; 80048; 82948; 85014; 85018; 88305; 88342; 93005; A9270; G0378; J0690; J1100; J2405; J2704; J3010; J7120; J7121

== ENCOUNTER 2022-08-12 10:01 | Outpatient (CLI) | payer MEDICARE, SELFPAY ==
[2022-08-12 10:23] LABS: Basophils Absolute Auto 0.1 K/mm3 (0.0-0.1); Basophils Percent Auto 0.6 % (0.2-1.2); Eosinophils Absolute Auto 0.3 K/mm3 (0-0.3); Eosinophils Percent Auto 2.7 % (0-4.4); Hematocrit 37.6 % (42.0-52.0); Hemoglobin 11.9 g/dL (14.0-18.0); Immature Granulocyte Percent A 0.9 % (0-0.5); Lymphocytes Absolute Auto 1.39 K/mm3 (0.9-3.2); Lymphocytes Percent Auto 12.1 % (18.3-44.2); Mean Corpuscular HGB Conc 31.6 g/dl (32-36); Mean Corpuscular Hemoglobin 28.5 pg (26-34); Mean Corpuscular Volume 90.2 fl (80-100); Mean Platelet Volume 8.6 fl (7.4-10.4); Monocytes Absolute Auto 0.8 K/mm3 (0.1-0.6); Monocytes Percent Auto 6.6 % (2.6-8.5); Neutrophils Absolute Auto 8.9 K/mm3 (1.3-6.7); Neutrophils Percent Auto 77.1 % (45.5-73.1); Platelet Count Result 294 k/mm3 (150-375); Red Blood Count 4.17 M/mm3 (4.6-6.20); Red Cell Distribution Width 13.5 % (11.5-14.5); White Blood Count 11.5 K/mm3 (4.5-10.0)
[2022-08-12 10:35] LABS: Alanine Aminotransferase 23 U/L (6-50); Albumin Level 4.3 g/dL (3.5-5.1); Alkaline Phosphatase 80 U/L (38-126); Anion Gap 15 mmol/L (8-16); Aspartate Amino Transferase 20 U/L (17-59); Bilirubin,Total 0.4 mg/dL (0.2-1.3); Blood Urea Nitrogen 13 mg/dL (9-20); Calcium 9.1 mg/dL (8.4-10.2); Carbon Dioxide 26 mmol/L (22-30); Chloride 99 mmol/L (98-107); Estimated Glomerular Filt Rate > 60; Glucose 260 mg/dL (65-110); Potassium 3.9 mmol/L (3.4-5.0); Sodium 140 mmol/L (137-145)
[2022-08-12 10:44] LABS: Hemoglobin A1C 7.4 % (<5.7)
[2022-08-12 10:52] LABS: Appearance Urine Slightly Cloudy (Clear); Bilirubin Urine Negative (Negative); Blood Urine 2+ (Negative); Color Urine Yellow (Yellow); Glucose Urine UA 3+ mg/dL (Negative); Ketones Urine Negative (Negative); Leukocyte Esterase Ur 1+ LEU/UL (NEGATIVE); Nitrate Urine Positive (Negative); Protein Urine 2+ mg/dL (Negative); Specific Grav Ur 1.025 (1.001-1.035); Urobilinogen Urine 0.2 mg/dL (<2.0); pH Urine 5.5 (5.0-9.0)
[2022-08-12 10:59] LABS: Bacteria Urine Trace /hpf; RBC Urine >75 /hpf (0-2); WBC Clumps Urine Present /HPF; WBC Urine >75 /hpf (0-3)
[2022-08-12 11:16] LABS: Add Urine Microscopic? YES
== END 2022-08-12 10:02 | disposition home or self-care (01) ==
LOC: ANHLAB 10:02
PROVIDERS: PCP Family Medicine; Visit Provider Physician Assistant
DX: D72.829 Elevated white blood cell count, unspecified (principal); N12 Tubulo-interstitial nephritis, not specified as acute or chronic; N39.0 Urinary tract infection, site not specified; I10 Essential (primary) hypertension; E11.9 Type 2 diabetes mellitus without complications
CPT/HCPCS: 36415; 80053; 81001; 83036; 85025; 87077; 87086; 87186

== ENCOUNTER 2022-08-16 09:12 | Outpatient (CLI) | payer MEDICARE, SELFPAY ==
[2022-08-16 09:32] LABS: Basophils Absolute Auto 0.1 K/mm3 (0.0-0.1); Eosinophils Absolute Auto 0.5 K/mm3 (0-0.3); Eosinophils Percent Auto 4.5 % (0-4.4); Hematocrit 37.3 % (42.0-52.0); Hemoglobin 12.2 g/dL (14.0-18.0); Immature Granulocyte Absolute 0.13 K/mm3 (0.00-0.031); Immature Granulocyte Percent A 1.2 % (0-0.5); Lymphocytes Absolute Auto 1.74 K/mm3 (0.9-3.2); Lymphocytes Percent Auto 15.6 % (18.3-44.2); Mean Corpuscular HGB Conc 32.7 g/dl (32-36); Mean Corpuscular Hemoglobin 28.4 pg (26-34); Mean Corpuscular Volume 86.9 fl (80-100); Mean Platelet Volume 8.7 fl (7.4-10.4); Monocytes Absolute Auto 0.7 K/mm3 (0.1-0.6); Monocytes Percent Auto 6.6 % (2.6-8.5); Neutrophils Absolute Auto 7.9 K/mm3 (1.3-6.7); Neutrophils Percent Auto 71.1 % (45.5-73.1); Platelet Count Result 308 k/mm3 (150-375); Red Blood Count 4.29 M/mm3 (4.6-6.20); Red Cell Distribution Width 14.1 % (11.5-14.5); White Blood Count 11.1 K/mm3 (4.5-10.0)
[2022-08-16 09:42] LABS: Alanine Aminotransferase 24 U/L (6-50); Albumin Level 4.4 g/dL (3.5-5.1); Alkaline Phosphatase 69 U/L (38-126); Anion Gap 10 mmol/L (8-16); Aspartate Amino Transferase 24 U/L (17-59); Bilirubin,Total 0.5 mg/dL (0.2-1.3); Blood Urea Nitrogen 17 mg/dL (9-20); Calcium 8.9 mg/dL (8.4-10.2); Carbon Dioxide 26 mmol/L (22-30); Chloride 101 mmol/L (98-107); Cholesterol 174 mg/dL (0-200); Estimated Glomerular Filt Rate > 60; Glucose 153 mg/dL (65-110); HDL Direct 51 mg/dL; Potassium 4.6 mmol/L (3.4-5.0); Sodium 137 mmol/L (137-145); Triglycerides 81 mg/dL (<150)
[2022-08-16 09:49] LABS: Appearance Urine Cloudy (Clear); Bilirubin Urine Negative (Negative); Blood Urine 3+ (Negative); Color Urine Yellow (Yellow); Glucose Urine UA Negative (Negative); Ketones Urine Negative (Negative); Leukocyte Esterase Ur 2+ LEU/UL (NEGATIVE); Nitrate Urine Negative (Negative); Protein Urine 2+ mg/dL (Negative); Specific Grav Ur 1.025 (1.001-1.035); Urobilinogen Urine 0.2 mg/dL (<2.0)
[2022-08-16 09:53] LABS: LDL Cholesterol Direct 89 mg/dL
[2022-08-16 10:04] LABS: Bacteria Urine Trace /hpf; Mucus Urine Rare /lpf; RBC Urine >75 /hpf (0-2); WBC Urine >75 /hpf (0-3)
[2022-08-16 10:09] LABS: Iron 60 ug/dL (49-181)
[2022-08-16 10:19] LABS: Percent Iron Saturation 19 % (20-50)
[2022-08-16 10:20] LABS: Add Urine Microscopic? YES
[2022-08-16 12:20] LABS: Folic Acid 16.5 ng/mL (2.76->20)
== END 2022-08-16 09:13 | disposition home or self-care (01) ==
LOC: ANHLAB 09:14
PROVIDERS: PCP Family Medicine; Visit Provider Physician Assistant
DX: E11.65 Type 2 diabetes mellitus with hyperglycemia (principal); D64.9 Anemia, unspecified; N39.0 Urinary tract infection, site not specified; E78.5 Hyperlipidemia, unspecified
CPT/HCPCS: 36415; 80053; 80061; 81001; 82607; 82728; 82746; 83540; 83550; 85025; 87086; 87147; 87181; 87186

== ENCOUNTER 2022-08-24 09:35 | Outpatient (CLI) | payer MEDICARE, SELFPAY ==
[2022-08-24 11:08] LABS: Appearance Urine Cloudy (Clear); Bilirubin Urine Negative (Negative); Blood Urine 2+ (Negative); Color Urine Yellow (Yellow); Glucose Urine UA Negative (Negative); Ketones Urine Negative (Negative); Leukocyte Esterase Ur 2+ LEU/UL (NEGATIVE); Nitrate Urine Negative (Negative); Protein Urine 2+ mg/dL (Negative); Urobilinogen Urine 0.2 mg/dL (<2.0)
[2022-08-24 11:17] LABS: Add Urine Microscopic? YES; Bacteria Urine Trace /hpf; Mucus Urine Rare /lpf; RBC Urine >75 /hpf (0-2); WBC Urine >75 /hpf (0-3)
== END 2022-08-24 09:36 | disposition home or self-care (01) ==
PROVIDERS: PCP Family Medicine; Visit Provider Physician Assistant
DX: R78.81 Bacteremia (principal); B96.5 Pseudomonas (aeruginosa) (mallei) (pseudomallei) as the cause of diseases classified elsewhere; N39.0 Urinary tract infection, site not specified; T83.511A Infection and inflammatory reaction due to indwelling urethral catheter, initial encounter
CPT/HCPCS: 81001; 87086; 87088

== ENCOUNTER → 2022-10-21 08:17 | Outpatient (CLI) | payer MEDICARE, SELFPAY ==
--- NOTE | ~2022-10-21 | CT_ITS ---
EXAMINATION: CT abdomen pelvis wo/w con DATE: 10/21/2022 09:05 INDICATION: Microscopic hematuria. TECHNIQUE: Computed tomography (CT) of the abdomen and pelvis was performed without and with intraven ous contrast using a total of 130 mL Omnipaque-350 intravenous contrast with a double-bolus technique for simultaneous opacification of the renal parenchyma and renal collecting system. Automated exposu re control and iterative reconstruction technique were employed. The dose-length product was 1484.51 mGy-cm. COMPARISON: CT abdomen and pelvis 07/13/2022, chest CT 10/21/11 FINDINGS: The visualized portions of the lung bases demonstrate mild atelectasis. A calcified left lung nodule is consistent with old granulomatous disease. No pleural effusion. The heart size is normal. There ar e coronary artery calcifications. No pericardial effusion. There is a small sliding hiatal hernia. Th e liver, gallbladder, spleen, pancreas, and left adrenal gland are normal. There is a 10 mm mass in r ight adrenal gland measuring soft tissue attenuation, stable from 10/21/11, likely an adenoma. There i s cortical thinning of the kidneys. The ureters are well opacified and are normal. There is diffuse b ladder wall thickening. The prostate is moderately enlarged. Three curvilinear densities in the prost ate may be surgical material or calcifications. There are changes of transurethral resection of prost ate. There is diverticulosis of the colon without evidence of diverticulitis. There are no dilated lo ops of bowel. The appendix is not visualized. There are no pathologically enlarged lymph nodes. There are bilateral inguinal hernias containing fat. There is no free intraperitoneal fluid. There are mahsa ign bone islands in right ilium and left sacrum. There is severe lumbar spondylosis. IMPRESSION: 1. Cortical thinning of the kidneys. 2. No urolithiasis. 3. Diffuse bladder wall thickening, which may be secondary to chronic outlet obstruction from the mod erately enlarged prostate, now status post transurethral resection. Reviewed, dictated and finalized at location [facility]. HIC ART TECHNICIAN IMPRESSION: 1. Cortical thinning of the kidneys. 2. No urolithiasis. 3. Diffuse bladder wall thickening, which may be secondary to chronic outlet ob struction from the moderately enlarged prostate, now status post transurethral resection.
--- NOTE | ~2022-10-21 | XR_ITS ---
EXAMINATION: XR abdomen/kub 1V DATE: 10/21/2022 09:05 INDICATION: Microscopic hematuria. TECHNIQUE: A supine view of the abdomen on 2 radiographs was obtained. COMPARISON: CT abdomen and pelvis 10/21/2022 FINDINGS: There are no dilated loops of bowel. There is no urolithiasis. IMPRESSION: 1. No urolithiasis. Reviewed, dictated and finalized at location [facility]. SANDER IMPRESSION: 1. No urolithiasis.
[2022-10-21 08:44] LABS: Estimated Glomerular Filt Rate > 60
== END ==
PROVIDERS: PCP Physician Assistant; Visit Provider Urology
DX: R31.29 Other microscopic hematuria (principal)
CPT/HCPCS: 74018; 74178; Q9967

== ENCOUNTER 2022-11-19 10:15 | Emergency (ER) | payer MEDICARE, SELFPAY ==
[2022-11-19] VITALS (9 sets, daily range): BP systolic 117–155; BP diastolic 67–78; PULSE 59–69; RESP 11–18; TEMP 36.7; O2SAT 98–100
--- NOTE | ~2022-11-19 | CT_ITS ---
EXAMINATION: CT brain wo con DATE: 11/19/2022 12:05 INDICATION: Headache. Hypertension. TECHNIQUE: Computed tomography (CT) of the head was performed without intravenous contrast. The mA wa s adjusted according to patient size. Iterative reconstruction technique was employed. Exam dose: 60 5.33 mGy-cm total exam DLP. COMPARISON: 09/16/2021 MRI brain/brainstem 12/09/2020 CT brain FINDINGS: No intracranial mass lesion or hemorrhage or cerebrovascular accident is detected. No midli ne shift or mass effect. Mild bilateral carotid siphon internal carotid artery calcification. No subd ural or epidural hematoma. No fracture or bone destruction of the cranial vault. The mastoid air cells and included paranasal si nuses are unremarkable. IMPRESSION: No acute abnormality Mild cerebral atherosclerosis Reviewed, dictated and finalized at [facility]. Reviewed, dictated and finalized at location [facility]. GER WASTEWATER
--- NOTE | 2022-11-19 11:07 | ECG_ITS ---
Measurements Intervals [place] Rate: 68 P: -19 NH: 148 QRS: 66 QRSD: 97 T: 37 QT: 379 QTc: 404 Interpretive Statements SINUS RHYTHM NORMAL ELECTROCARDIOGRAM COMPARED TO ECG 07/29/2022 08:58:41 NO SIGNIFICANT CHANGES Electronically Signed On 11-20-2022 7:58:24 OUTSIDE LABORER by Luis Dorado M.D.
[2022-11-19 11:29] LABS: Basophils Absolute Auto 0.1 K/mm3 (0.0-0.1); Basophils Percent Auto 0.5 % (0.2-1.2); Eosinophils Absolute Auto 0.1 K/mm3 (0-0.3); Eosinophils Percent Auto 1.3 % (0-4.4); Hematocrit 46.4 % (42.0-52.0); Hemoglobin 15.2 g/dL (14.0-18.0); Immature Granulocyte Absolute 0.04 K/mm3 (0.00-0.031); Immature Granulocyte Percent A 0.4 % (0-0.5); Lymphocytes Absolute Auto 1.28 K/mm3 (0.9-3.2); Lymphocytes Percent Auto 11.7 % (18.3-44.2); Mean Corpuscular HGB Conc 32.8 g/dl (32-36); Mean Corpuscular Hemoglobin 27.5 pg (26-34); Mean Corpuscular Volume 84.1 fl (80-100); Mean Platelet Volume 9.4 fl (7.4-10.4); Monocytes Absolute Auto 0.6 K/mm3 (0.1-0.6); Monocytes Percent Auto 5.6 % (2.6-8.5); Neutrophils Absolute Auto 8.8 K/mm3 (1.3-6.7); Neutrophils Percent Auto 80.5 % (45.5-73.1); Platelet Count Result 202 k/mm3 (150-375); Red Blood Count 5.52 M/mm3 (4.6-6.20); Red Cell Distribution Width 13.2 % (11.5-14.5)
[2022-11-19 11:40] LABS: Alanine Aminotransferase 24 U/L (6-50); Albumin Level 4.4 g/dL (3.5-5.1); Alkaline Phosphatase 68 U/L (38-126); Anion Gap 7 mmol/L (8-16); Aspartate Amino Transferase 23 U/L (17-59); Bilirubin,Total 0.5 mg/dL (0.2-1.3); Blood Urea Nitrogen 13 mg/dL (9-20); Carbon Dioxide 28 mmol/L (22-30); Chloride 100 mmol/L (98-107); Estimated CRCL calculation 80 ml/min; Estimated Glomerular Filt Rate > 60; Glucose 177 mg/dL (65-110); Lipase 85 U/L (23-300); Potassium 4.2 mmol/L (3.4-5.0); Sodium 135 mmol/L (137-145)
[2022-11-19 11:58] LABS: Troponin I < 0.012 ng/mL (0.000-0.034)
--- NOTE | 2022-11-19 12:24 | ED.GENADULT ---
HPI - General Adult General Chief complaint: Unspecified Stated complaint: R leg tingling and stiffness, elevated BP Time Seen by Provider: 11/19/22 10:23 History of Present Illness HPI narrative: Patient is a 77-year-old male who presents ER with reports of stiffness in his right leg. Occurred earlier this morning where he just had some tightness when trying to move his leg. No paralysis. He then developed some tingling over the plantar aspect of his right foot. No known trauma. Lasted about an hour. No aggravating or alleviating factors. Has history of stroke in the past. Reports at that time he had paralysis of his right side arm and leg. Patient's had no falls. No additional concerns. No recent medication changes. Related Data Home Medications Medication Instructions Recorded Confirmed multivitamin 1 tablet PO DAILY 10/29/19 08/16/22 amlodipine 5 mg-benazepril 20 mg 1 cap PO QAM 07/02/22 08/16/22 capsule indapamide 2.5 mg tablet 2.5 mg PO QAM 07/02/22 08/16/22 metformin 500 mg tablet 500 mg PO QAM 07/02/22 08/16/22 omeprazole 20 mg capsule,delayed 20 mg PO DAILY PRN Acid Reflux 07/02/22 08/16/22 release pitavastatin calcium 2 mg tablet 1 mg PO QAM 07/02/22 08/16/22 (Livalo) acetaminophen 500 mg capsule 1,000 mg PO Q6H PRN Pain 07/28/22 08/16/22 Allergies Allergy/AdvReac Type Severity Reaction Status Date / Time dutasteride Allergy Unknown IRREG Verified 11/19/22 10:43 HEART, RED FACE tamsulosin [From Flomax] AdvReac Intermediate Palpitation Verified 11/19/22 10:43 s codeine AdvReac Mild NAUSEA Verified 11/19/22 10:43 Msmlptk-BBP-TtL Reductase AdvReac Unknown Muscle Verified 11/19/22 10:43 Inhibitor Cramps [Hgmsded-Nfz-Guv Reductase Inhibitor] Review of Systems Review of Systems: All systems reviewed & are unremarkable except as noted in HPI and below Constitutional: Constitutional: Denies chills and Denies fever(s) Cardiovascular: Cardiovascular: Denies chest pain, Denies radiating jaw, neck or arm pain and Denies palpitations Respiratory: Respiratory: Denies cough, Denies dyspnea and Denies wheezing Gastrointestinal: Gastrointestinal: Denies abdominal pain, Denies diarrhea, Denies nausea and Denies vomiting Musculoskeletal: Musculoskeletal: Denies arthralgias, Denies joint swelling, Denies muscle cramps, Reports stiffness and Reports tingling (right foot) [facility] Past Medical History Medical History BPH with urinary obstruction Coronary artery disease Cryptogenic stroke Diastolic dysfunction Echocardiogram 03/2022: Mild concentric left ventricular wall hypertrophy, normal ventricular size, normal function with EF of 60%, grade 1 diastolic dysfunction, mild left atrial enlargement, small echogenic mass at the side of the anterior mitral valve leaflet cannot rule out healed vegetation Elevated PSA Essential (primary) hypertension GERD (gastroesophageal reflux disease) Hyperlipidemia Mitral valve mass (~2017) Noted on multiple echocardiograms measuring 0.6 x 0.7 cm on the tip of the anterior mitral valve leaflet. Not visualized on the cardiac MRI March 2018 ROSINA (obstructive sleep apnea) Pericarditis Type 2 diabetes mellitus without complication, without long-term current use of insulin Surgical History Surgical History H/O umbilical hernia repair (2017) With mesh placement. History of cardiac catheterization (01/2018) RCA tortuous with minimal luminal irregularities small to medium-sized ramus branch with an ostial stenosis of 50% Family History Family History Father Diabetes mellitus Family history of lung disease Hypertension Family history of chronic obstructive pulmonary disease Family history of type 2 diabetes mellitus Mother Hypertension Social History Social History (Review
== END 2022-11-19 14:29 | disposition home or self-care (01) ==
PROVIDERS: Emergency Provider Emergency Medicine; PCP Family Medicine
DX: R20.2 Paresthesia of skin (principal); M25.69 Stiffness of other specified joint, not elsewhere classified; I25.10 Atherosclerotic heart disease of native coronary artery without angina pectoris; I10 Essential (primary) hypertension; E11.9 Type 2 diabetes mellitus without complications; E78.5 Hyperlipidemia, unspecified; N40.1 Benign prostatic hyperplasia with lower urinary tract symptoms; N13.8 Other obstructive and reflux uropathy; K21.9 Gastro-esophageal reflux disease without esophagitis; G47.33 Obstructive sleep apnea (adult) (pediatric); Z87.891 Personal history of nicotine dependence; Z79.84 Long term (current) use of oral hypoglycemic drugs; I67.2 Cerebral atherosclerosis
CPT/HCPCS: 36415; 70450; 80053; 83690; 84484; 85025; 93005; 96365; 99284; J0131

== ENCOUNTER 2022-12-15 09:01 | Outpatient (CLI) | payer MEDICARE, SELFPAY ==
[2022-12-15 09:42] LABS: Basophils Absolute Auto 0.1 K/mm3 (0.0-0.1); Basophils Percent Auto 0.6 % (0.2-1.2); Eosinophils Absolute Auto 0.3 K/mm3 (0-0.3); Eosinophils Percent Auto 2.5 % (0-4.4); Hematocrit 44.9 % (42.0-52.0); Immature Granulocyte Absolute 0.05 K/mm3 (0.00-0.031); Immature Granulocyte Percent A 0.5 % (0-0.5); Lymphocytes Absolute Auto 0.61 K/mm3 (0.9-3.2); Mean Corpuscular HGB Conc 33.4 g/dl (32-36); Mean Corpuscular Hemoglobin 27.4 pg (26-34); Mean Corpuscular Volume 81.9 fl (80-100); Mean Platelet Volume 9.3 fl (7.4-10.4); Monocytes Absolute Auto 0.6 K/mm3 (0.1-0.6); Monocytes Percent Auto 6.3 % (2.6-8.5); Neutrophils Absolute Auto 8.5 K/mm3 (1.3-6.7); Neutrophils Percent Auto 84.1 % (45.5-73.1); Platelet Count Result 200 k/mm3 (150-375); Red Blood Count 5.48 M/mm3 (4.6-6.20); Red Cell Distribution Width 13.3 % (11.5-14.5); White Blood Count 10.1 K/mm3 (4.5-10.0)
[2022-12-15 10:29] LABS: Hemoglobin A1C 7.6 % (<5.7)
[2022-12-15 10:42] LABS: Iron 86 ug/dL (49-181)
[2022-12-15 10:44] LABS: Alanine Aminotransferase 36 U/L (6-50); Albumin Level 4.5 g/dL (3.5-5.1); Alkaline Phosphatase 70 U/L (38-126); Anion Gap 9 mmol/L (8-16); Aspartate Amino Transferase 30 U/L (17-59); Blood Urea Nitrogen 21 mg/dL (9-20); Calcium 8.9 mg/dL (8.4-10.2); Carbon Dioxide 27 mmol/L (22-30); Chloride 98 mmol/L (98-107); Estimated Glomerular Filt Rate > 60; Glucose 245 mg/dL (65-110); Potassium 4.4 mmol/L (3.4-5.0); Sodium 134 mmol/L (137-145)
[2022-12-15 11:03] LABS: Percent Iron Saturation 23 % (20-50)
[2022-12-15 11:51] LABS: Folic Acid 18.3 ng/mL (2.76->20)
== END 2022-12-15 09:02 | disposition home or self-care (01) ==
LOC: ANHLAB 09:03
PROVIDERS: PCP Family Medicine; Visit Provider Physician Assistant
DX: E11.65 Type 2 diabetes mellitus with hyperglycemia (principal); D64.9 Anemia, unspecified; I10 Essential (primary) hypertension
CPT/HCPCS: 36415; 80053; 82607; 82728; 82746; 83036; 83540; 83550; 85025

== ENCOUNTER 2023-08-22 10:20 | Outpatient (CLI) | payer MEDICARE, SELFPAY ==
--- NOTE | 2023-08-22 11:00 | NEURO_ITS ---
Impression: # Complains of numbness of hands, right more than left. # Right moderate Carpal Tunnel Syndrome. # Left mild Carpal Tunnel Syndrome. # Right ulnar neuropathy around the elbow. # Needle/EMG exam mildly abnormal. Nerve Conduction Studies Anti Sensory Summary Table Stim Site NR Peak (ms) P-T Amp (?V) Site1 Site2 Delta-P (ms) Dist (cm) Ron (m/s) Left Median Anti Sensory (2-3nd Digit) Wrist 4.6 39.4 Wrist 2-3nd Digit 4.6 14.0 30 Wrist 4.8 22.5 Wrist 2-3nd Digit 4.6 14.0 30 Right Median Anti Sensory (2-3nd Digit) Wrist 4.1 68.8 Wrist 2-3nd Digit 4.1 14.0 34 Wrist 5.7 35.0 Wrist 2-3nd Digit 4.1 14.0 34 Left Radial Anti Sensory (Base 1st Digit) Wrist 2.6 28.7 Wrist Base 1st Digit 2.6 0.0 Right Radial Anti Sensory (Base 1st Digit) Wrist 3.0 8.2 Wrist Base 1st Digit 3.0 0.0 Left Ulnar Anti Sensory (5th Digit) Wrist 3.3 14.1 Wrist 5th Digit 3.3 14.0 42 Right Ulnar Anti Sensory (5th Digit) Wrist 3.3 22.3 Wrist 5th Digit 3.3 14.0 42 Motor Summary Table Stim Site NR Onset (ms) O-P Amp (mV) Site1 Site2 Delta-0 (ms) Dist (cm) Ron (m/s) Left Median Motor (Abd Poll Brev) Wrist 4.1 6.0 Elbow Wrist 5.4 29.0 54 Elbow 9.5 5.9 Right Median Motor (Abd Poll Brev) Wrist 5.0 3.3 Elbow Wrist 4.8 27.0 56 Elbow 9.8 3.2 Left Ulnar Motor (Abd Dig Minimi) Wrist 3.1 8.0 A Elbow Wrist 5.6 29.0 52 A Elbow 8.7 6.8 B Elbow Wrist 3.7 19.0 51 B Elbow 6.8 4.4 Right Ulnar Motor (Abd Dig Minimi) Wrist 3.0 9.2 A Elbow Wrist 4.9 28.0 57 A Elbow 7.9 7.7 F Wave Studies NR F-Lat (ms) L-R F-Lat (ms) Left Median (Mrkrs) (Abd Poll Brev) 30.35 0.00 Right Median (Mrkrs) (Abd Poll Brev) 30.35 0.00 Left Ulnar (Mrkrs) (Abd Dig Min) 30.58 0.00 Right Ulnar (Mrkrs) (Abd Dig Min) 30.58 0.00 EMG Side Muscle Nerve Root Ins Act Fibs Amp Dur Recrt Comment Right 1stDorInt Ulnar C8-T1 Nml Nml Nml Nml Nml Right Ext Indicis Radial (Post Int) C7-8 Nml Nml Nml Nml Nml Right Ext Digitorum Radial (Post Int) C7-8 Nml Nml Nml Nml Nml Right BrachioRad Radial C5-6 Nml Nml Nml Nml Nml Right PronatorTeres Median C6-7 Nml Nml Nml Nml Nml Right Abd Poll Brev Median C8-T1 Nml Nml Nml >12ms Reduced Left 1stDorInt Ulnar C8-T1 Nml Nml Nml >12ms Reduced Left Ext Indicis Radial (Post Int) C7-8 Nml Nml Nml Nml Nml Left Ext Digitorum Radial (Post Int) C7-8 Nml Nml Nml Nml Nml Left BrachioRad Radial C5-6 Nml Nml Nml Nml Nml Left PronatorTeres Median C6-7 Nml Nml Nml Nml Nml Left Abd Poll Brev Median C8-T1 Nml Nml Nml Nml Nml MTDD
== END 2023-08-22 10:21 | disposition home or self-care (01) ==
LOC: ANHNEURO 10:22
PROVIDERS: PCP Family Medicine; Visit Provider Physician Assistant
DX: G56.03 Carpal tunnel syndrome, bilateral upper limbs (principal); G56.21 Lesion of ulnar nerve, right upper limb
CPT/HCPCS: 95886; 95911

== ENCOUNTER 2023-09-10 17:19 | Emergency (ER) | payer MEDICARE, SELFPAY ==
--- NOTE | 2023-09-10 17:21 | ED.WOUNDLAC ---
HPI - Wound/Laceration General Chief Complaint: Wound/Laceration Stated Complaint: finger laceration Time Seen by Provider: 09/10/23 17:21 Source: patient Mode of arrival: ambulatory Limitations: no limitations History of Present Illness HPI narrative: Brown is a 78-year-old male patient presenting to the ER today with complaints of a finger laceration that occurred approximately 30 minutes prior to arrival. He reports he pinched his left index finger in between a closet rack. Has a partial skin flap to the distal right index finger Related Data Home Medications Medication Instructions Recorded Confirmed multivitamin 1 tablet PO DAILY 10/29/19 07/21/23 acetaminophen 500 mg capsule 1,000 mg PO Q6H PRN Pain 07/28/22 07/21/23 Allergies Allergy/AdvReac Type Severity Reaction Status Date / Time dutasteride Allergy Unknown IRREG Verified 08/30/23 14:07 HEART, RED FACE tamsulosin [From Flomax] AdvReac Intermediate Palpitation Verified 08/30/23 14:07 s codeine AdvReac Mild NAUSEA Verified 08/30/23 14:07 Vdltntr-ZOC-RpS Reductase AdvReac Unknown Muscle Verified 08/30/23 14:07 Inhibitor Cramps [Dtwrwtj-Sbk-Kss Reductase Inhibitor] Review of Systems Review of Systems: Pertinent positives per HPI. Patient denies any fever, chills, rash, headache, visual changes, dizziness, cough, runny nose, sore throat, shortness of breath, chest pain, palpitations, nausea, vomiting, diarrhea, constipation, abdominal pain, or any urinary issues. [facility] Past Medical History Medical History BPH with urinary obstruction Coronary artery disease Cryptogenic stroke Diastolic dysfunction Echocardiogram 03/2022: Mild concentric left ventricular wall hypertrophy, normal ventricular size, normal function with EF of 60%, grade 1 diastolic dysfunction, mild left atrial enlargement, small echogenic mass at the side of the anterior mitral valve leaflet cannot rule out healed vegetation Elevated PSA Essential (primary) hypertension GERD (gastroesophageal reflux disease) Hyperlipidemia Mitral valve mass (~2017) Noted on multiple echocardiograms measuring 0.6 x 0.7 cm on the tip of the anterior mitral valve leaflet. Not visualized on the cardiac MRI March 2018 ROSINA (obstructive sleep apnea) Pericarditis Type 2 diabetes mellitus without complication, without long-term current use of insulin Surgical History Surgical History H/O umbilical hernia repair (2017) With mesh placement. History of cardiac catheterization (01/2018) RCA tortuous with minimal luminal irregularities small to medium-sized ramus branch with an ostial stenosis of 50% Family History Family History Father Diabetes mellitus Family history of lung disease Hypertension Family history of chronic obstructive pulmonary disease Family history of type 2 diabetes mellitus Mother Hypertension Social History Social History Social History: He is . They have 2 children and no pets. Code status: Full code Surrogate decision maker: Meena () Smoking packs per day: 1 Smoking cigarettes per day: 20.0 Years smoked: 20 Smoking pack-years: 20.00 Smoking status: Former smoker Second hand tobacco smoke exposure: No Smoking end date: 03/25/88 Alcohol intake: current Drinks per week: 14 Substance use: never Substance use type: does not use Lack of Transportation: No Lack of Food: Never True Current Housing: I Have Housing Concerned About Future Housing: No Difficulty Paying Gas/Electric Bills: No Difficulty Paying for Meds: No Currently Unemployed: No Education: Associate Degree Difficulty w/ Childcare or Family Care: No Living arrangements: with family Ruiz guillen
[2023-09-10 17:27] VITALS: BP 176/72; PULSE 59; RESP 16; TEMP 36.4; O2SAT 100
[2023-09-10] MEDS: TETANUS,DIPHTHERIA,AC PERTUSSIS ADULT (0.5 ML) BOOSTRIX IM (18:30)
== END 2023-09-10 18:40 | disposition home or self-care (01) ==
PROVIDERS: Emergency Provider Nurse Practitioner Family; PCP Family Medicine
DX: S61.211A Laceration without foreign body of left index finger without damage to nail, initial encounter (principal); Z23 Encounter for immunization; I25.10 Atherosclerotic heart disease of native coronary artery without angina pectoris; I10 Essential (primary) hypertension; E78.5 Hyperlipidemia, unspecified; E11.9 Type 2 diabetes mellitus without complications; N40.1 Benign prostatic hyperplasia with lower urinary tract symptoms; N13.8 Other obstructive and reflux uropathy; K21.9 Gastro-esophageal reflux disease without esophagitis; G47.33 Obstructive sleep apnea (adult) (pediatric); Z87.891 Personal history of nicotine dependence; W23.0XXA Caught, crushed, jammed, or pinched between moving objects, initial encounter; Z79.82 Long term (current) use of aspirin; Z79.84 Long term (current) use of oral hypoglycemic drugs
CPT/HCPCS: 12001; 90471; 90715; 99282

== ENCOUNTER 2023-09-27 15:55 | Outpatient (CLI) | payer MEDICARE, SELFPAY ==
--- NOTE | ~2023-09-27 | XR_ITS ---
XR finger 2nd LT min 2V DATE: 09/27/2023 16:17 INDICATION: Laceration pain of tip of second digit TECHNIQUE: 3 views of left second digit COMPARISON: None FINDINGS: There is mild soft tissue irregularity at the distal aspect of the second digit consistent with clinical history of laceration. There is mild osteoarthritic change at the proximal and distal interphalangeal joints of the second d igit. No fracture, dislocation, periosteal reaction or bone destruction. No radiopaque soft tissue fo reign body or subcutaneous emphysema is noted. IMPRESSION: Distal digit soft tissue laceration; no fracture or dislocation Osteoarthritis Reviewed, dictated and finalized at location B. CY OPERATOR
== END 2023-09-27 15:56 | disposition home or self-care (01) ==
LOC: ANHIMG 15:57
PROVIDERS: PCP Family Medicine; Visit Provider Plastic Surgery
DX: M79.645 Pain in left finger(s) (principal); M19.042 Primary osteoarthritis, left hand
CPT/HCPCS: 73140

== ENCOUNTER 2023-10-11 07:53 | Outpatient (CLI) | payer MEDICARE, SELFPAY | END 2023-10-11 07:54 | disposition home or self-care (01) | LOC: ANHSURGERY 07:56 | PROVIDERS: PCP Family Medicine; Visit Provider Surgery | DX: K40.20 Bilateral inguinal hernia, without obstruction or gangrene, not specified as recurrent (principal); Z01.818 Encounter for other preprocedural examination | CPT/HCPCS: 36415; 86850; 86900; 86901 ==

== ENCOUNTER 2023-10-18 03:46 | Day surgery (SDC) | payer MEDICARE, SELFPAY ==
[2023-10-10 08:17] VITALS: BMI 23.1
--- NOTE | 2023-10-10 08:26 | PC.NURSE ---
PRE-OP INSTRUCTIONS, PLEASE READ CAREFULLY Report to the Outpatient Waiting Room, entrance under the green pavilion located off [facility], at time _0600_ on date _10/18/23_. Planned Procedure Time: _0730_. Time changes happen often and if your time is changed the preop area will call you the afternoon before. - You and your visitor will be asked to self-screen and do not enter if you have any COVID symptoms. - A mask is optional within the hospital at this time. Patients may have clear liquids (water, carbonated beverages, clear teas, apple juice) until 3 hours prior to surgery (0430 AM) with a maximum of 20 ounces. - No food from midnight until time of surgery Take the following medications with a SIP of water the morning of surgery: _NONE_ DO NOT STOP ANY OF YOUR OTHER PRESCRIPTION MEDICATIONS PRIOR TO SURGERY ?EXCEPT THE FOLLOWING Medications to discontinue per ANESTHESIA _MULTIVITAMIN 3 DAYS PRIOR TO SURGERY, Date to take last dose 10/14/23_ Please no make-up, nail ukrainian, hairspray, perfume, deodorant, or body powder the day of surgery. No jewelry (including any body piercings) or valuables the day of surgery, leave them at home. Please take a shower or bath the night before, or the morning of, surgery with an antibacterial soap. Wear comfortable, loose fitting clothing. - Jewelry must be removed prior to entering the operating room. Rings and piercings that are not removed may be cut off. - The hospital will not accept responsibility for valuables. - Please leave all valuables, including medications, at home the day of surgery. If you are going home after surgery, a licensed powder truck driver must drive you home. - NO public transportation without another adult if you receive anesthesia. - We recommend that an adult stay with you for 24 hours following discharge. - We also recommend that you do not drive, make important decision, drink alcoholic beverages, or take any drugs that were not prescribed by your health care provider for at least 24 hours after your discharge time. Follow any additional instructions given to you from your surgeon. If you or anyone in your household have experienced Covid symptoms in the past week, please notify your surgeon or the nurse liaison at the phone number below for possible testing. Telephone instructions given to _PATIENT_and asked if any additional questions and then verbalized understanding. Patient advised to call surgeon office or pre surgery nurse liaison [phone] if any additional questions.
--- NOTE | 2023-10-17 13:55 | WPDANESEPPF ---
Anes - Initial Pre Proc Eval Procedure: Operation Date: 10/18/23 07:30 Proposed Procedures p Laparoscopic Bilateral Inguinal Hernia Repair with Mesh, Davinci Assisted - oJnny Gross DO Date/Time: 10/17/23 13:55 Surgeon: Jonny Gross DO Pre Op Diagnosis: Bilateral Inguinal Hernia Patient Data Age: 78 Gender: M Height: 1.69 m Weight: 65.9 kg Allergies Allergy/AdvReac Type Severity Reaction Status Date / Time dutasteride Allergy Unknown IRREG Verified 10/10/23 08:14 HEART, RED FACE tamsulosin [From Flomax] AdvReac Intermediate Palpitation Verified 10/10/23 08:14 s codeine AdvReac Mild NAUSEA Verified 10/10/23 08:14 Home Medications Medication Instructions Recorded Confirmed Type multivitamin 1 tablet PO DAILY 10/29/19 10/11/23 History amlodipine 5 mg-benazepril 20 mg 1 cap PO QAM #100 caps 06/27/23 10/11/23 Rx capsule lancets #200 ea 06/27/23 10/10/23 Rx pitavastatin calcium 2 mg tablet 2 mg PO QAM #90 tabs 07/10/23 10/11/23 Rx (Livalo) blood-glucose meter #1 ea 08/07/23 10/10/23 Rx omeprazole 20 mg capsule,delayed See Rx Instructions .Route 08/09/23 10/11/23 Rx release .COMPLEX #90 caps blood sugar diagnostic (Blood #100 ea 08/15/23 10/10/23 Rx Glucose Test strips) metformin 500 mg tablet 500 mg PO DAILY #90 tabs 09/06/23 10/11/23 Rx alcohol swabs (BD Alcohol Swabs) 1 pad topical DAILY #200 ea 09/12/23 10/11/23 Rx blood glucose control, low (True #1 ea 09/13/23 10/10/23 Rx Metrix Level 1 solution) indapamide 2.5 mg tablet 2.5 mg PO QAM #90 tabs 09/26/23 10/11/23 Rx coQ10 (ubiquinol) 200 mg capsule 200 mg PO DAILY 10/10/23 10/11/23 History finasteride 1 mg tablet 1 mg PO DAILY 10/16/23 10/16/23 History Patient hx anesthesia problems: none Family hx anesthesia problems: none Results Review: All pre-operative results and documents have been reviewed as part of the pre-operative evaluation. [facility] Past Medical History Medical History BPH with urinary obstruction Coronary artery disease Cryptogenic stroke Diastolic dysfunction Echocardiogram 03/2022: Mild concentric left ventricular wall hypertrophy, normal ventricular size, normal function with EF of 60%, grade 1 diastolic dysfunction, mild left atrial enlargement, small echogenic mass at the side of the anterior mitral valve leaflet cannot rule out healed vegetation Elevated PSA Essential (primary) hypertension GERD (gastroesophageal reflux disease) Hyperlipidemia Mitral valve mass (~2017) Noted on multiple echocardiograms measuring 0.6 x 0.7 cm on the tip of the anterior mitral valve leaflet. Not visualized on the cardiac MRI March 2018 ROSINA (obstructive sleep apnea) Pericarditis Type 2 diabetes mellitus without complication, without long-term current use of insulin Surgical History Surgical History H/O umbilical hernia repair (2016) With mesh placement. History of cardiac catheterization (01/2018) RCA tortuous with minimal luminal irregularities small to medium-sized ramus branch with an ostial stenosis of 50% Family History Family History Father Diabetes mellitus Family history of lung disease Hypertension Family history of chronic obstructive pulmonary disease Family history of type 2 diabetes mellitus Mother Hypertension Social History Social History Social History: He is . They have 2 children and no pets. Code status: Full code Surrogate decision maker: Meena () Smoking packs per day: 1 Smoking cigarettes per day: 20.0 Years smoked: 20 Smoking pack-years: 20.00 Smoking status: Former smoker Tobacco type: cigarettes Second hand tobacco smoke exposure: No Smoking end date: 03/25/88 Alcohol intake: current Drinks
[2023-10-18] VITALS (7 sets, daily range): BP systolic 110–145; BP diastolic 59–68; PULSE 55–80; RESP 15–23; TEMP 36.3–36.4; O2SAT 99–100
[2023-10-18] MEDS: ACETAMINOPHEN 500 MG TABLET 1000 MG PO (06:54)
[2023-10-18] MEDS: LACTATED RINGERS 1,000 ML 30 ML IV CONT ×2 (07:00→09:15)
[2023-10-18] MEDS: KETOROLAC 15 MG/ML VIAL (*BKC) IV PUSH (07:06)
--- NOTE | 2023-10-18 07:15 | WPDHPUPDATE1 ---
History and Physical Update Update Date/Time: 10/18/23 07:15 History and Physical has been reviewed, including an updated exam of the patient. There are NO changes in the patient's condition. Risks, benefits, and alternatives have been discussed and questions answered. Patient agrees to proceed with procedure.
[2023-10-18 07:17] LABS: Glucose Point of Care 140 mg/dl (65-105)
[2023-10-18] MEDS: ceFAZolin 2 GM/D5W 50 ML 2 GM/50 ML BAG IVPB (07:30)
[2023-10-18] MEDS: BUPIVACAINE/EPINEPHRINE 0.5% 30 ML VIAL INFILTRATE (08:00)
--- NOTE | 2023-10-18 09:09 | W.PM.PROC2 ---
Procedure Note - Detailed Date of Procedure 10/18/23 Pre-op Diagnosis Bilateral Inguinal Hernia Post-op Diagnosis Same (bilateral direct inguinal hernia) Procedure Performed Laparoscopic bilateral inguinal hernia repair with mesh, da Tono assisted Surgeon Jonny Gross, Anesthesia General and Local (0.5% bupivacaine with epinephrine) Indications This is a 78-year-old man who presents with bilateral inguinal hernias. He had noticed some groin pain with physical activity that would improve with rest. This had been going on for over a year. He was found to have bilateral inguinal hernias on exam. Discussions were made with the patient about treatment options and decision was made to proceed with laparoscopic bilateral inguinal hernia repair with mesh, da Tono assisted. Findings Laparoscopic bilateral inguinal hernia repair was performed. The patient was found to have direct inguinal defects bilaterally. The left side was slightly larger than the right. No other intra-abdominal abnormalities noted. A robotic transabdominal preperitoneal approach was used for repair. Once a wide enough preperitoneal pocket was created on each side, then placed a large 3DMax mid mesh overlying each myopectineal orifice. No specimens were obtained for pathology. Description of Procedure Procedure as well as risks, benefits, and alternatives were discussed with the patient. Written consent was obtained and placed in chart prior to procedure. Patient was brought back to surgical suite. He was placed supine on operating table. Time-out was done to confirm patient and procedure. He was then intubated by Anesthesia Department. His abdomen was prepped and draped in sterile fashion using chlorhexidine prep. 0.5% bupivacaine with epinephrine was infiltrated at each location for incision. An 8 mm incision was made in the left lateral abdomen, and a 5 mm Optiview trocar was advanced through the abdominal layers under direct visualization. Once inside the abdominal cavity, carbon dioxide insufflation was used to create a pneumoperitoneum. A camera was inserted and the abdominal cavity was inspected. The patient was placed in slight Trendelenburg position. An 8 millimeter incision was made on the right lateral abdomen and an 8 millimeter trocar was inserted under direct visualization. Another 8 millimeter incision was made just superior to the umbilicus and an 8 millimeter trocar was inserted under direct visualization. The 5 mm port was then removed and this was replaced with another 8 mm robotic port. The robotic arms were brought up to the patient's bedside and secured to the ports. The camera and instruments were inserted. I then moved over to the robotic console and took control of the camera and instruments. After careful inspection of the abdominal cavity, I began scoring the peritoneum along the right lower quadrant using scissors with electrocautery. The preperitoneal plane was entered and this was carefully dissected caudally along the inferior epigastric vessels. Careful dissection with scissors with electrocautery and blunt dissection was used to continue this dissection. I dissected far enough laterally to allow for mesh placement, and also dissected medially to identify the pubic arch and Mike's ligament. The hernia sac was identified and carefully dissected posteriorly. The cord contents were also identified and the peritoneum was carefully dissected far enough posteriorly to allow for mesh placement. Once an adequate pocket was created, I then placed the mesh within the preperitoneal pocket and carefully unfolded it. The mesh was centered on the hernia defect with adequate overlap circumferentially. The inferior edge of the mesh was inspected to ensure that it was far enough away from the peritoneal edge. The mesh appeared in proper position overlying the entire myopectineal orifice. The mesh was secured using 3-0 Vicryl simple interrupted sutures in
[2023-10-18] MEDS: oxyCODONE HCL (*CRX) 5 MG TAB IR PO (10:08)
[2023-10-18 11:12] LABS: Glucose Point of Care 180 mg/dl (65-105)
== END 2023-10-18 11:00 | disposition home or self-care (01) ==
PROVIDERS: PCP Family Medicine; Visit Provider Surgery
PROC: 8E0Y4CZ Robotic Assisted Procedure of Lower Extremity, Percutaneous Endoscopic Approach (ICD-10-PCS; CPT 49650; principal; 2023-10-18 07:30)
DX: K40.20 Bilateral inguinal hernia, without obstruction or gangrene, not specified as recurrent (principal); I11.9 Hypertensive heart disease without heart failure; I25.10 Atherosclerotic heart disease of native coronary artery without angina pectoris; E78.5 Hyperlipidemia, unspecified; K21.9 Gastro-esophageal reflux disease without esophagitis; E11.9 Type 2 diabetes mellitus without complications; G47.33 Obstructive sleep apnea (adult) (pediatric); N40.1 Benign prostatic hyperplasia with lower urinary tract symptoms; N13.9 Obstructive and reflux uropathy, unspecified; Z86.73 Personal history of transient ischemic attack (TIA), and cerebral infarction without residual deficits; Z87.891 Personal history of nicotine dependence; Z79.84 Long term (current) use of oral hypoglycemic drugs
CPT/HCPCS: 49650; S2900; 36415; 82948; 86850; 86900; 86901; A9270; C1781; J0330; J0690; J1596; J1885; J2405; J2704; J3010; J7030; J7120

== ENCOUNTER 2024-05-08 07:37 | Outpatient (CLI) | payer MEDICARE, SELFPAY ==
--- NOTE | ~2024-05-08 | US_ITS ---
Right groin ultrasound Ordering provider: Jonny Gross DO History: . K40.20 - Bilateral inguinal hernia, without obstruction o... . Comparison: None. FINDINGS/impression: No definite hernia seen. Possible Lymph node seen which measures 1.4 x 0.8 x 1.8 cm.. Reviewed, dictated and finalized at location A.
== END 2024-05-08 07:38 | disposition home or self-care (01) ==
PROVIDERS: PCP Family Medicine; Visit Provider Surgery
DX: K40.20 Bilateral inguinal hernia, without obstruction or gangrene, not specified as recurrent (principal); R10.31 Right lower quadrant pain; Z87.19 Personal history of other diseases of the digestive system; Z98.890 Other specified postprocedural states
CPT/HCPCS: 76882

== ENCOUNTER 2024-12-02 10:24 | Outpatient (CLI) | payer MEDICARE, SELFPAY ==
--- NOTE | ~2024-12-02 | XR_ITS ---
XR wrist RT min 3V Ordering provider: Julius Wallace MD History: . M25.531 - Pain in right wrist . Comparison: None. FINDINGS: BONES: No definite acute fracture or dislocation. Small sclerotic area which may be a bony fragment i s projected over the joint between the lunate and capitate bones. No definite scaphoid fracture. JOINT SPACES: Osteoarthritic changes of the first metacarpophalangeal joint. SOFT TISSUES: Normal. IMPRESSION: No definite acute osseous abnormality right wrist. Possible vague fragment seen in the area of the sandee int between the lunate and capitate bone. Follow-up advised. Reviewed, dictated and finalized at location A. IMPRESSION: No definite acute osseous abnormality right wrist. Possible vague fragment seen in the area of the joint between the lunate and capitate bone. Follow-up advis ed.
--- OUTSIDE RECORDS SUMMARY | 2024-12-02 12:15 | XMS_ITS | Clinical Summary ---
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 Gender Identity Not on file Sexual Orientation Not on file Plan of Treatment Health Maintenance Due Date Last Done Comments Hepatitis C 1964 DTaP, Tdap and Td Vaccines ( 1 - Tdap) 1965 Zoster Vaccines (1 of 2) 1996 Pneumococcal Vaccine: 65+ Ye ars (1 of 1 - PCV) 2011 RSV Immunization or 60+ Years (1 - 1-dose 75+ series) 2021 COVID-19 Vaccine ( - 2023-2 5 season) 2024 Influenza Adult (#1) 2024 Meningococcal B Vaccine Aged Out No l onger eligible based on patient's age to complete this topic Meningococcal Vaccine Aged Out No gaby levi eligible based on patient's age to complete this topic RSV Immunizations Under 20 Months Aged Out No longer eligible based on patient's age to complete this topic
--- OUTSIDE RECORDS SUMMARY | 2024-12-02 12:16 | XMS_ITS | Clinical Summary ---
Author Organization [facility] [address] Address [address] [place] [address] Care Team Providers Care Airport Security Screener Name Role Phone Sadi Newberry MD Primary Care Provider Mayo Randhawa MD Unavailable [phone] Allergies Active Allergy Reactions Criticality Noted Date Comments Tamsulosin Palpitations Low 12/19/2017 Medications metFORMIN (GLUCOPHAGE) 500 mg tablet Take 1 tablet (500 mg total) by mouth 2 (two) times a day with meals Active aspirin 81 mg tablet Take 1 tablet (81 mg total) by mouth daily Active multivitamin tabletIndicatio ns:Vitamin Deficiency Prevention Take 1 tablet by mouth Active omeprazole (PriLOSEC) 20 mg capsule Take 1 capsule (20 mg total) by mouth daily as needed Active coenzyme Q10 200 mg capsule Take 1 capsule (200 mg total) by mouth daily Active amlodipine-yunior zepril (LOTREL 5-20) 5-20 mg per capsule Take 1 capsule by mouth daily Active indapamide (LOZOL) 2.5 mg tablet Take 1 tablet (2.5 mg total) by mouth every morning Active Livalo 2 mg tablet 1 tablet (2 mg total) daily 04/08/2022 Active finasteride (PROPECIA) 1 mg tablet Take 1 tablet (1 mg total) by mouth daily 10/06/2023 Active True Metrix Glucose Test Strip strip 03/30/2024 Active Active Problems Problem Noted Date Diagnosed Date Palpitations 12/20/2022 History of COVID-19 09/15/2021 Hyperlipidemia associated with type 2 diabetes m ellitus 09/10/2019 Coronary artery disease of n ative artery of [place] heart with stable angina pectoris 05/16/2018 Hypertension associated with diabetes 12/19/2017 Cryptogenic stroke 12/19/2017 Hyperlipidemia 12/19/2017 Essential hypertension 12/19/2017 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 PAC (premature atrial contraction) 12/19/2017 Surgical History Surgery Date Site/Laterality Comments APPENDECTOMY HERNIA REPAIR PROSTATE SURGERY Urolift implant UMBILICAL HERNIA REPAIR 09/25/2023 - 10/25/2023 Medical History Medical History Date Comments Arrhythmia Stroke (HCC) 2007 Arthritis Diabetes mellitus (HCC) Migraines Heart disease Hypertension Sleep apnea Mixed conductive and sensorineural hearing loss Family History Medical History Relation Name Comments Diabetes Father Burak Heart disease Mother Govind Hypertension Mother Govind Miscarriages / Stillbirths Mother Govind Relation Name Status Comments Father Burak (Age 90) septicemia Mother Govind (Age 94) choked Sister 1 Alive Sister 2 Alive Social History Tobacco Use Types Packs/Day Years Used Date Smoking Tobacco: Former Cigarettes 0.8 15 0 12/19/1972 - 12/20/1987 Smokeless Tobacco: Never Tobacco Cessation:Counseling Given: Not Answered Alcohol Use Standard Drinks/Week Comments Yes 15 (1 standard drink = 0.6 oz pu re alcohol) Personal Safety Answer Date Recorded Getting School Help Needed Not on file 09/26 Sex and Gender Information Value Date Recorded Sex Assigned at Not on file 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 Gender Identity Not on file Sexual Orientation Not on file Obstetrics History Last Filed Vital Signs Vital Sign Reading Time Taken Comments Blood Pressure 118/64 06/06/2024 10:55 AM CDT Pulse 69 06/06/2024 10:55 AM CDT Temperature 36.4 C (97.6 F) 07/02/2022 4:32 PM CDT Respiratory Rate 18 11/29/2023 11:50 AM SEAT INSTALLER Oxygen Saturation 98% 06/06/2024 10:55 AM CDT Inhaled Oxygen Concentration - - Weight 67.1 kg (148 lb) 06/06/2024 10:55 AM CDT Height 170.2 cm (5' 7 ) 06/06/2024 10:55 AM CDT Body Mass Index 23.18 06/06/2024 10:55 AM CDT Plan of Treatment Health Maintenance Due Date Last Done Comments Albumin Creatinine Ratio, Urine 1946 Depression Screening 1946 Fall Risk Assessment 1946 Hemoglobin A1C 1946 Hepatitis C Screening 1946 Dilated Eye Exam 1946 Foot Exam 1946 Hepatitis B Screening 1964 DTaP/Tdap/Td Vaccine (1 - Tdap) 05/12/2007 7 Abdominal Aortic Aneurysm (A AA) Screen 2011 Well Visit 65+ 2011 Zoster Vaccine (2 of 3) 09/18/2013 07/24/2013 Pneumococcal vaccine 65+ (2 of 2 - PCV) 07/24/2014 07/24/2013, 07/23/2008 eGFR 05/19/2024 05/19/2023, 09/07/2021 Influenza Vaccine (#1) 2024 3, 06/25/2009, 07/23/2008, Additional history exists Lipid Panel 12/20/2024 12/21/2023, 06/2 02/2023, 07/05/2021, Additional history exists Procedures Procedure Name Priority Date/Time Associated Diagnosis Comments LIPID PANEL Routine 12/21/2023 7:40 AM CDT BASIC METABOLIC PANEL Routine 05/19/2023 7:13 AM CDT Mitral valve mass from Last 3 Months or Most Recently Relevant to Health Maintenance Results * (ABNORMAL) Lipid panel (12/21/2023 7:40 AM CDT) SCRIBED Cholesterol, Total 204(A) 0 - 200 EXTERNAL LAB SCRIBED HDL 70 40 - 100 EXTERNAL LAB SCRIBED LDL 117(A) 0 - 100 EXTERNAL LAB SCRIBED Triglycerides 71 0 - 150 EXTERNAL LAB Blood 12/21/2023 7:40 AM CDT us Historical Provider LAB BLOOD ORDERABLES Eidth l Result EXTERNAL LAB * (ABNORMAL) Basic metabolic panel (05/19/2023 7:13 AM CDT) Glucose 129(H) 65 - 99 mg/dL [facility] Comment: Fasting reference interval For someone without known diabetes, a glucose value >125 mg/dL indicates that they may have diabetes and this should be confirmed with a follow-up test. BUN 22 7 - 25 mg/dL [facility] Creatinine 0.92 0.70 - 1.28 mg/dL [facility] eGFR 86 > OR = 60 mL/min/1.7 3m2 [facility] BUN/creat ratio SEE NOTE: 6 (calc) [facility] Comment: Not Reported: BUN and Creatinine are within reference range. Sodium 137 135 - 146 mmol/L [facility] Potassium, pl 4.5 3.5 - 5.3 mmol/L [facility] Chloride 100 98 - 110 mmol/L [facility] CO2 30 20 - 32 mmol/L [facility] Calcium 9.1 8.6 - 10.3 mg/dL [facility] Blood 05/19/2023 7:13 AM CDT 05/19/2023 7:14 AM CDT Narrative [facility] - 05/20/2023 7:23 AM CDT FASTING:YES FASTING: YES Luis Ramesh MD LAB BLOOD ORDERABLES Final Result [facility] [address] [place] [address] from Last 3 Months or Most Recently Relevant to Health Maintenance Insurance HUMANA CHOICE MEDICARE PPO [employer] CHOICE MEDICARE PPO [employer] MEDICARE PPO Care Teams Airport Security Screener Relationship Specialty Start Date End Date Sadi Newberry MD [address] [address] PCP - General Family Medicine 11/23/18 Mayo Randhawa MD [address] [address] Consulting Physician Cardiothoracic Surgery 11/22/23
--- OUTSIDE RECORDS SUMMARY | 2024-12-02 12:16 | XMS_ITS | Referral Summary ---
Author Organization [facility] [address] Address [address] [place] [address] Care Team Providers Care Poiser Balance Name Role Phone Sadi Newberry MD Primary Care Provider Mayo Randhawa MD Unavailable [phone] Allergies Active Allergy Reactions Criticality Noted Date [...] artery disease of n ative artery of [place] heart with stable angina pectoris 05/16/2018 Hypertension associated with diabetes 12/19/2017 Cryptogenic stroke 12/19/2017 Hyperlipidemia 12/19/2017 Essential hypertension 12/19/2017 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 PAC (premature atrial contraction) 12/19/2017 Social History Tobacco Use Types Packs/Day Years [...] on file 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 Gender Identity Not on file Sexual Orientation Not on file Last Filed Vital Signs Vital Sign Reading Time Taken Comments Blood Pressure 118/64 06/06/2024 10:55 AM CDT Pulse 69 06/06/2024 10:55 AM CDT Temperature 36.4 C (97.6 F) 07/02/2022 4:32 PM CDT Respiratory Rate 18 11/29/2023 11:50 AM HEALTH RESEARCHER Oxygen Saturation 98% 06/06/2024 10:55 AM CDT Inhaled Oxygen Concentration - - Weight 67.1 kg (148 lb) 06/06/2024 10:55 AM CDT Height 170.2 cm (5' 7 ) 06/06/2024 10:55 AM CDT Body Mass Index 23.18 06/06/2024 10:55 AM CDT Plan of Treatment Not on file Procedures Procedure Name Priority Date/Time Associated Diagnosis [...] EXTERNAL LAB Blood 12/21/2023 7:40 AM CDT Historical Provider LAB BLOOD ORDERABLES Edith l Result EXTERNAL LAB * (ABNORMAL) [facility] BUN/creat ratio SEE NOTE: 6 - 22 (calc) [facility] Comment: Not Reported: [...] LAB BLOOD ORDERABLES Final Result [facility] [address] [place] [address] from Last 3 Months or Most Recently Relevant to Health Maintenance Insurance [employer] CHOICE MEDICARE PPO HU[employer] CHOICE MEDICARE PPO [employer] CHO[employer] MEDICARE PPO Care Teams Poiser Balance Relationship Specialty Start Date End Date Sadi Newberry MD [address] [place] [address] PCP - General Family Medicine 11/23/18 Mayo Randhawa MD [address] [place] [address] Consulting Physician Cardiothoracic Surgery 11/22/23
== END 2024-12-02 10:25 | disposition home or self-care (01) ==
PROVIDERS: PCP Family Medicine; Visit Provider Plastic Surgery
DX: M25.531 Pain in right wrist (principal)
CPT/HCPCS: 73110

== ENCOUNTER 2024-12-23 10:12 | Outpatient (CLI) | payer MEDICARE, SELFPAY ==
[2024-12-23 10:56] LABS: Anion Gap 8 mmol/L (4-12); Blood Urea Nitrogen 20 mg/dL (9-20); Calcium 9.2 mg/dL (8.4-10.2); Carbon Dioxide 29 mmol/L (22-30); Chloride 98 mmol/L (98-107); Estimated Glomerular Filt Rate > 60; Glucose 135 mg/dL (65-110); Potassium 3.8 mmol/L (3.4-5.0); Sodium 135 mmol/L (137-145)
--- OUTSIDE RECORDS SUMMARY | 2024-12-23 11:29 | XMS_ITS | Continuity of Care Document ---
Author Organization [facility] Address [address] [place] [phone] Phone Care Team Providers Care Fish Roe Processor Name Role Phone Kash Sanchez MD Unavailable [...] Diagnoses Date Provider Providers Copied on Encounter [facility], [address] [place] [address], [id number] tel:[phone] [address] [place] [address] Endoscopy Center No Information Daniel Hewitt. [address] [place] [address], [id number] , [place]. tel:[phone] Referring Provider: Ramesh Nowak MD, [address] [place], [address]. tel:[phone] [facility], [address] [place] [address], [id number] tel:[phone] [facility] No Information 7 Daniel Hewitt. [address] [place] [address], [id number] , . tel:[phone] Referring Provider: Ramesh Nowak MD, [address] [place], [address]. tel:[phone] [facility], [address] [place] [address], [id number] tel:[phone] [address] [place] [address] [facility] No Information 7 Daniel Hewitt. [address] [place] [address], [id number] , [place]. tel:[phone] Referring Provider: Ramesh Nowak MD, [address] [place], [address]. tel:[phone] Family History Family Member Type Diagnosis Age At Onset No Information Payers Payer name Insurance type Covered alliance party ID [facility]ortoa gian[facility] [id number] Social History Type Description Quantity Date [...]
--- OUTSIDE RECORDS SUMMARY | 2024-12-23 11:29 | XMS_ITS | Encounter Summary ---
Author Organization [facility] Healthcare Address [address] [place] [address] Care Team Providers Care Parachute/Combatant Diver Officer Name Role Phone Sadi Newberry MD Primary Care Provider Mayo Randhawa MD Unavailable [phone] Encounter Details Date Type Department Care Team (Late st Contact Info) Description 12/18/2024 Results Follow-Up [facility] Medical Group Cardiology [address] [address] Steve Porter MD [address] [place] [address] [place] [address] Social History Tobacco Use Types Packs/Day Years Used Date Smoking Tobacco: Former Cigarettes 0.8 16 0 12/19/1972 - 12/20/1987 Smokeless Tobacco: Never Alcohol Use Standard Drinks/Week Comments Yes 15 (1 standard drink = 0.6 oz pu re alcohol) Sex and Gender Information Value Date Recorded Sex Assigned at Not on file 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
--- OUTSIDE RECORDS SUMMARY | 2024-12-23 11:29 | XMS_ITS | Referral Summary ---
Author Organization [facility] [address] [place] [address] Address [address] [facility] [address] [place] [address] Care Team Providers Care Regional Account Manager Name Role Phone Sadi Newberry MD Primary Care Provider Mayo Randhawa MD Unavailable [phone] Encounters Date Type Department Care Team Description 12/18/2024 Results Follow-Up [facility] Medical Group Cardiology [address] [facility] [address] [place] [phone] Cristian Griffith MD 12/16/2024 11:00 AM CDT Ancillary Procedure [facility] Medical Group Vascular and Vein Surgery at [address] [place] [address] Left carotid bruit 12/13/2024 Telephone [facility] Cardiology [address] [place] [address] [address] [place] [address] Cristian Griffith MD 12/13/2024 11:45 AM CDT Office Visit [facility] Medical Group Cardiology at [address] [place] [address] Cristian Griffith MD Coronary artery disease of [place] artery of [place] heart with stable angina pectoris (Primary Dx); Hyperlipidemia associated with type 2 diabetes mellitus (HCC); Hypertension associated with diabetes (HCC); Mitral valve mass; Left carotid bruit from Last 3 Months Allergies Active Allergy Reactions Criticality Noted Date Comments Tamsulosin Palpitations Low 12/19/2017 Medications metFORMIN (GLUCOPHAGE) 500 mg tablet Take 1 tablet (500 mg total) by mouth 2 (two) times a day with meals Active multivitamin tabletIndicatio ns:Vitamin Deficiency Prevention Take [...] mg total) by mouth every morning Active finasteride (PROPECIA) 1 mg tablet Take 1 tablet (1 mg total) by mouth daily 4 Active True Metrix Glucose Test Strip strip 4 Active aspirin 81 mg enteric coated tablet Take 1 tablet (81 mg total) by mouth daily 5 12/14/19 26 Active pitavastatin calcium (LIVALO) 2 mg tablet Take 1 tablet (2 mg total) by mouth daily Active aspirin 81 mg tablet Take 1 tablet (81 mg total) by mouth daily 12/14/19 25 Discontinu ed(Therapy completed) Livalo 2 mg tablet 1 tablet (2 mg total) daily 2 12/17/19 25 Discontinu ed(Alterna te therapy) Active Problems Problem Noted Date Diagnosed Date Left carotid bruit 12/13/2024 Palpitations 12/20/2022 History of COVID-19 09/15/2021 Hyperlipidemia associated with type 2 diabetes m breanneitus 09/10/2019 Coronary artery disease of n ative artery of [place] heart with stable angina pectoris 05/16/2018 Hypertension [...] on file 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 Gender Identity Not on file Sexual Orientation Not on file Last Filed Vital Signs Vital Sign Reading Time Taken Comments Blood Pressure 112/74 12/13/2024 11:51 AM CDT Pulse 70 12/13/2024 11:51 AM CDT Temperature 36.4 C (97.6 F) 07/02/2022 4:32 PM CDT Respiratory Rate 18 11/29/2023 11:50 AM CLAM SHOVEL OPERATOR Oxygen Saturation 98% 12/13/2024 11:51 AM CDT Inhaled Oxygen Concentration - - Weight 67.6 kg (149 lb) 12/13/2024 11:51 AM CDT Height 170.2 cm (5' 7 ) 12/13/2024 11:51 AM CDT Body Mass Index 23.34 12/13/2024 11:51 AM CDT Plan of Treatment Not on file Procedures Procedure Name Priority Date/Time Associated Diagnosis Comments US CAROTIDS DUPLEX BILATERAL Schedule Routine, Read Routine (OP Routine) 12/16/2024 11:16 AM CDT Left carotid bruit LIPID PANEL Routine 09/04/2024 7:49 AM CLAM SHOVEL OPERATOR BASIC METABOLIC PANEL Routine 05/19/2023 7:13 AM CDT Mitral valve mass from Last 3 Months or Most Recently Relevant to Health Maintenance Results * US Carotids Duplex Bilateral (12/16/2024 11:16 AM CDT) Anatomical Region Laterality Modality Vascular Bilateral Ultrasound 12/16/2024 10:4 6 AM CDT Narrative 12/18/2024 2:37 PM CDT Vascular & Vein Surgery [address] 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 INDICATIONS: Left carotid bruit. HISTORY: HTN. HLD. DM. CAD. Cryptogenic stroke. Former smoker. COMPARISONS: No previous exams. MEASUREMENTS: Right Value Left Value RT Prox CCA PSV 71 cm/sec LT Prox CCA PSV 86 cm/sec RT Prox CCA EDV 12 cm/sec LT Prox CCA EDV 13 cm/sec RT Distal CCA PSV 72 cm/sec LT Distal CCA PSV 59 cm/sec RT Distal CCA EDV 16 cm/sec LT Distal CCA EDV 10 cm/sec RT Prox ICA PSV 60 cm/sec LT Prox ICA PSV 42 cm/sec RT Prox ICA EDV 11 cm/sec LT Prox ICA EDV 12 cm/sec RT Mid ICA PSV 64 cm/sec LT Mid ICA PSV 67 cm/sec RT Mid ICA EDV 17 cm/sec LT Mid ICA EDV 19 cm/sec RT Distal ICA PSV 67 cm/sec LT Distal ICA PSV 77 cm/sec RT Distal ICA EDV 17 cm/sec LT Distal ICA EDV 23 cm/sec RT ECA Prx PSV 84 cm/sec LT ECA Prx PSV 65 cm/sec RT ICA/CCA 0.83 ratio LT ICA/CCA 0.71 ratio Rt Vert Dst PSV 37 cm/sec Lt Vert Dst PSV 40 cm/sec FINDINGS: Rt Common Carotid Artery: Duplex imaging of the right common carotid artery is within normal limits without evidence of atherosclerotic disease. Rt Internal Carotid Artery: The plaque in the right internal carotid artery appears to be heterogeneous and smooth. Atherosclerotic changes of the right internal carotid artery without hemodynamically significant Doppler findings. <50% stenosis. Rt External Carotid Artery: Patent right external carotid artery with evidence of atherosclerotic disease present. Rt Vertebral Artery: The right vertebral artery is patent with antegrade flow. Lt Common Carotid Artery: Duplex imaging of the left common carotid artery is within normal limits without evidence of atherosclerotic disease. Lt Internal Carotid Artery: The plaque in the left internal carotid artery appears to be heterogeneous and smooth. Atherosclerotic changes of the left internal carotid artery without hemodynamically significant Doppler findings. <50% stenosis. Lt External Carotid Artery: The left external carotid artery is patent without evidence of atherosclerotic plaque. Lt Vertebral Artery: The left vertebral artery is patent with antegrade flow. Comments: Brachial artery systolic blood pressure is 130 on the right, 124 on the left. CONCLUSIONS: 1. No evidence of hemodynamically significant disease of the bilateral extracranial carotid system. ATTESTATION: I have reviewed and interpreted the pertinent images and measurements of this study. I attest to the conclusions in the final report that is provided above. 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 INDICATIONS: Left carotid bruit. HISTORY: HTN. HLD. DM. CAD. Cryptogenic stroke. Former smoker. COMPARISONS: No previous exams. MEASUREMENTS: Right Value Left Value RT Prox CCA PSV 71 cm/sec LT Prox CCA PSV 86 cm/sec RT Prox CCA EDV 12 cm/sec LT Prox CCA EDV 13 cm/sec RT Distal CCA PSV 72 cm/sec LT Distal CCA PSV 59 cm/sec RT Distal CCA EDV 16 cm/sec LT Distal CCA EDV 10 cm/sec RT Prox ICA PSV 60 cm/sec LT Prox ICA PSV 42 cm/sec RT Prox ICA EDV 11 cm/sec LT Prox ICA EDV 12 cm/sec RT Mid ICA PSV 64 cm/sec LT Mid ICA PSV 67 cm/sec RT Mid ICA EDV 17 cm/sec LT Mid ICA EDV 19 cm/sec RT Distal ICA PSV 67 cm/sec LT Distal ICA PSV 77 cm/sec RT Distal ICA EDV 17 cm/sec LT Distal ICA EDV 23 cm/sec RT ECA Prx PSV 84 cm/sec LT ECA Prx PSV 65 cm/sec RT ICA/CCA 0.83 ratio LT ICA/CCA 0.71 ratio Rt Vert Dst PSV 37 cm/sec Lt Vert Dst PSV 40 cm/sec FINDINGS: Rt Common Carotid Artery: Duplex imaging of the right common carotidartery is within normal limits without evidence of atherosclerotic disease. Rt Internal Carotid Artery: The plaque in the right internal carotidartery appears to be heterogeneous and smooth. Atherosclerotic changes of the right internalcarotid artery without hemodynamically significant Doppler findings. <50% stenosis. Rt External Carotid Artery: Patent right external carotid artery withevidence of atherosclerotic disease present. Rt Vertebral Artery: The right vertebral artery is patent with antegradeflow. Lt Common Carotid Artery: Duplex imaging of the left common carotid arteryis within normal limits without evidence of atherosclerotic disease. Lt Internal Carotid Artery: The plaque in the left internal carotid arteryappears to be heterogeneous and smooth. Atherosclerotic changes of the left internalcarotid artery without hemodynamically significant Doppler findings. <50% stenosis. Lt External Carotid Artery: The left external carotid artery is patentwithout evidence of atherosclerotic plaque. Lt Vertebral Artery: The left vertebral artery is patent with antegradeflow. Comments: Brachial artery systolic blood pressure is 130 on the right, 124on the left. CONCLUSIONS: 1. No evidence of hemodynamically significant disease of the bilateralextracranial carotid system. ATTESTATION: I have reviewed and interpreted the pertinent images and measurements ofthis study. I attest to the conclusions in the final report that is provided above. Electronically Signed By: Adolfo Carlson MD 12/18/2024 1:45:19 PM CDT Cristian Griffith MD IM US PROCEDURES Final R esult * (ABNORMAL) Lipid panel (09/04/2024 7:49 AM CLAM SHOVEL OPERATOR) [facility] SCRIBED Cholesterol, Total 217(A) 0 - 200 EXTERNAL LAB SCRIBED HDL 65 40 - 100 EXTERNAL LAB SCRIBED LDL 129(A) 0 - 100 EXTERNAL LAB SCRIBED Triglycerides 123 0 - 150 EXTERNAL LAB Blood 09/04/2024 7:49 AM CLAM SHOVEL OPERATOR Historical Provider LAB BLOOD ORDERABLES Edith l Result EXTERNAL LAB * (ABNORMAL) Basic metabolic panel (05/19/2023 7:13 AM CDT) Pathologist [facility] Glucose 129(H) 65 - 99 mg/dL [facility] [...] [facility] BUN/creat ratio SEE NOTE: 6 - (calc) [facility] Comment: Not Reported: [...] 05/20/2023 7:23 AM CDT FASTING:YES FASTING: YES us Luis Ramesh MD LAB BLOOD ORDERABLES Final Result [facility] [address] [place] [address] from Last 3 Months or Most Recently Relevant to Health Maintenance Insurance [employer] MEDICARE PPO [employer] MEDICARE PPO [employer] MEDICARE PPO Care Teams Regional Account Manager Relationship Specialty Start Date End Date Sadi Newberry MD [address] [place] [address] PCP - General Family Medicine 11/23/18 Mayo Randhawa MD [address] [place] [address] Consulting Physician Cardiothoracic Surgery 11/22/23
--- OUTSIDE RECORDS SUMMARY | 2024-12-23 11:29 | XMS_ITS | Clinical Summary ---
Author Organization [facility] [place] [address] Address [address] [place] [address] Care Team Providers Care Manufacturing Millwright Name Role Phone Sadi Newberry MD Primary Care Provider Mayo Randhawa MD Unavailable [phone] Allergies Active Allergy Reactions Criticality Noted Date [...] artery disease of n ative artery of [place] heart with stable angina pectoris 05/16/2018 Hypertension associated with diabetes 12/19/2017 Cryptogenic stroke 12/19/2017 Hyperlipidemia 12/19/2017 Essential hypertension 12/19/2017 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 PAC (premature atrial contraction) 12/19/2017 Encounters Date Type Department Care Team Description 12/18/2024 Results Follow-Up [facility] [address] [facility] [address] [place], [place] [address] [place] [address] Cristian Griffith MD 12/16/2024 11:00 AM CDT Ancillary Procedure [facility] Vascular and Vein Surgery at [address] [place] [address] Left carotid bruit 12/13/2024 11:45 AM CDT Office Visit [facility] at [address] [place] [phone] Cristian Griffith MD Coronary artery disease of [place] artery of [place] heart with stable angina pectoris (Primary Dx); Hyperlipidemia associated with type 2 diabetes mellitus (HCC); Hypertension associated with diabetes (HCC); Mitral valve mass; Left carotid bruit 12/13/[address] [facility] Medical [facility] Cardiology [address] [facility] [address] [place] [address] Cristian Griffith MD from Last 3 Months Surgical History Surgery Date Site/Laterality Comments APPENDECTOMY HERNIA REPAIR PROSTATE SURGERY Urolift implant UMBILICAL HERNIA REPAIR 09/25/2023 - 10/25/2023 Medical History Medical History Date Comments Arrhythmia Stroke (HCC) 2008 Arthritis Diabetes mellitus (HCC) Migraines Heart disease Hypertension Sleep apnea Mixed conductive and sensorineural hearing loss Family History Medical History Relation Name Comments Diabetes Father Burak Heart disease Mother Govind Hypertension Mother Govind Miscarriages / Stillbirths Mother Govind Relation Name Status Comments Father [place] (Age 90) septicemia Mother Govind (Age 94) [...] on file 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 Gender Identity Not on file Sexual Orientation Not on file Obstetrics History Last Filed Vital Signs Vital Sign Reading Time Taken Comments Blood Pressure 112/74 12/13/2024 11:51 AM CDT Pulse 70 12/13/2024 11:51 AM CDT Temperature 36.4 C (97.6 F) 07/02/2022 4:32 PM CDT Respiratory Rate 18 11/29/2023 11:50 AM ROUGE PRESSER Oxygen Saturation 98% 12/13/2024 11:51 AM CDT Inhaled Oxygen Concentration - - Weight 67.6 kg (149 lb) 12/13/2024 11:51 AM CDT Height 170.2 cm (5' 7 ) 12/13/2024 11:51 AM CDT Body Mass Index 23.34 12/13/2024 11:51 AM CDT Plan of Treatment Health Maintenance Due Date Last Done Comments Albumin Creatinine Ratio, Urine 1945 Depression Screening 1945 Fall Risk Assessment 1945 Hemoglobin A1C 1945 Hepatitis C Screening 1945 Dilated Eye Exam 1945 Foot Exam 1945 Hepatitis B Screening 1964 DTaP/Tdap/Td Vaccine (1 - Tdap) 05/12/2007 08 7 Abdominal Aortic Aneurysm (A AA) Screen 2011 Well Visit 65+ 2011 Zoster Vaccine (2 of 3) 09/18/2013 07/24/2013 Pneumococcal vaccine 65+ (2 of 2 - PCV) 07/24/2014 07/24/2013, 07/23/2008 eGFR 05/19/2024 05/19/2023, 09/07/2021 Influenza Vaccine (#1) 2024 3, 06/25/2009, 07/23/2008, Additional history exists Lipid Panel 09/04/2025 09/04/2024, 11/24, 03/20/2023, Additional history exists Procedures Procedure Name Priority Date/Time Associated Diagnosis Comments US CAROTIDS DUPLEX BILATERAL Schedule Routine, Read Routine (OP Routine) 12/16/2024 11:16 AM CDT Left carotid bruit LIPID PANEL Routine 09/04/2024 7:49 AM ROUGE PRESSER BASIC METABOLIC PANEL Routine 05/19/2023 7:13 AM CDT Mitral valve mass from Last 3 Months or Most Recently Relevant to Health Maintenance Results * US Carotids Duplex Bilateral (12/16/2024 11:16 AM CDT) Anatomical Region Laterality Modality Vascular Bilateral Ultrasound 12/16/2024 10:4 6 AM CDT Narrative 12/18/2024 2:37 PM CDT Vascular & Vein Surgery [address] [place] [address] Carotid Duplex Ultrasound Report Patient Name: BROWN WHITE A : 1945 (79y 8m) Study Date: 12/16/2024 10:46:51 AM Gender: M Shingle Carrier: JAMI Location: [facility] Ref Provider: CRISTIAN GRIFFITH Quality: Adequate [...] MD - 12/18/2024 Vascular & Vein Surgery [address] [place] [address] Carotid Duplex Ultrasound Report Patient Name: BROWN WHITE A : 1945 (79y 8m) Study Date: 12/16/2024 10:46:51 AM Gender: M Shingle Carrier: Location: [facility] Provider: CRISTIAN GRIFFITH Quality: Adequate Order Provider: [...] * (ABNORMAL) Lipid panel (09/04/2024 7:49 AM ROUGE PRESSER) Pathologist [facility] SCRIBED Cholesterol, Total 217(A) 0 - 200 EXTERNAL LAB SCRIBED HDL 65 40 - 100 EXTERNAL LAB SCRIBED LDL 129(A) 0 - 100 EXTERNAL LAB SCRIBED Triglycerides 123 0 - 150 EXTERNAL LAB Blood 09/04/2024 7:49 AM ROUGE PRESSER Historical Provider LAB BLOOD ORDERABLES Edith l [...] LAB BLOOD ORDERABLES Final Result [facility] [address] [place] [address] from Last 3 Months or Most Recently Relevant to Health Maintenance Insurance [employer] MEDICARE PPO [employer] MEDICARE PPO [employer] CHOICE MEDICARE PPO Care Teams Manufacturing Millwright Relationship Specialty Start Date End Date Sadi Newberry MD [address] [place] [address] PCP - General Family Medicine 11/23/18 Mayo Randhawa MD [address] [place] [address] Consulting Physician Cardiothoracic Surgery 11/22/23
--- OUTSIDE RECORDS SUMMARY | 2024-12-23 11:29 | XMS_ITS | Clinical Summary ---
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
== END 2024-12-23 10:13 | disposition home or self-care (01) ==
LOC: ANHSURGERY 10:19
PROVIDERS: Anesthesiology; PCP Family Medicine; Visit Provider Plastic Surgery
DX: E11.9 Type 2 diabetes mellitus without complications (principal)
CPT/HCPCS: 36415; 80048

== ENCOUNTER 2025-01-01 00:32 | Day surgery (SDC) | payer MEDICARE, SELFPAY ==
[2024-12-18 15:31] VITALS: BMI 24.2
--- NOTE | 2024-12-18 15:58 | PC.NURSE ---
Report to the Outpatient Waiting Room, entrance under the green pavilion located off [facility], at time ___12:15PM____ on date __01/01/25 . Planned Procedure Time: __2:15PM .? Time changes happen often and if your time is changed the preop area will call you the afternoon before. - You and your visitor will be asked to self-screen and do not enter if you have any COVID symptoms. Please call surgeon if you need to reschedule. - A mask is optional within the hospital at this time. NOTHING TO EAT OR DRINK 8 HRS PRE-OP PER DR CLOUD. Patients may have clear liquids (water, carbonated beverages, clear teas, apple juice) until 6:15AM with a maximum of 20 ounces PER ANESTHESIA. - No food from midnight until time of surgery and no smoking, or chewing tobacco (or any form of nicotine). No chewing gum, candy or mints. Take only the following medications with a SIP of water on the morning of surgery: NONE DO NOT STOP ANY OF YOUR OTHER PRESCRIPTION MEDICATIONS PRIOR TO SURGERY EXCEPT THE FOLLOWING Hold all vitamins and supplements for 3 days per anesthesiologist.-LAST DOSE 12/28/24. Medications to discontinue per physician ___HOLD ASPIRIN PER DR CLOUD Date to take last dose Please no make-up, nail portuguese, hairspray, perfume, deodorant, or body powder the day of surgery.? No jewelry (including any body piercings) or valuables the day of surgery, leave them at home.? Please take a shower or bath the night before, or the morning of, surgery with an antibacterial soap.? Wear comfortable, loose fitting clothing.? - Jewelry must be removed prior to entering the operating room.? Rings and piercings that are not removed may be cut off. - The hospital will not accept responsibility for valuables.? - Please leave all valuables, including medications, at home the day of surgery. If you are going home after surgery, a licensed haul driver must drive you home.? - NO public transportation without another adult if you receive anesthesia. - We recommend that an adult stay with you for 24 hours following discharge. - We also recommend that you do not drive, make important decision, drink alcoholic beverages, or take any drugs that were not prescribed by your health care provider for at least 24 hours after your discharge time. Follow any additional instructions given to you from your surgeon. Telephone instructions given to ____PATIENT and asked if any additional questions and then verbalized understanding. Patient advised to call surgeon office or pre surgery nurse liaison [phone] if any additional questions.
--- OUTSIDE RECORDS SUMMARY | 2025-01-01 00:35 | XMS_ITS | Continuity of Care Document ---
Author Organization [facility] Address [address] [place] [address] Phone Care Team Providers Care Inside Sales Associate Name Role Phone Kash Sanchez MD Unavailable [...] Diagnoses Date Provider Providers Copied on Encounter [facility], [address] [place] [address], [id number] tel:[phone] [address] [place] [address] Endoscopy Center No Information Daniel Hewitt. [address] [place] [address], [id number] , [place]. tel:[phone] Referring Provider: Ramesh Nowak MD, [address] [place], [address]. tel:[phone] [facility], [address] [place] [address], [id number] tel:[phone] [facility] No Information 7 Daniel Hewitt. [address] [place] [address], [id number] , . tel:[phone] Referring Provider: Ramesh Nowak MD, [address] [place], [address]. tel:[phone] [facility], [address] [place] [address], [id number] tel:[phone] [address] [place] [address] [facility] No Information 7 Daniel Hewitt. [address] [place] [address], [id number] , [place]. tel:[phone] Referring Provider: Ramesh Nowak MD, [address] [place], [address]. tel:[phone] Family History Family Member Type Diagnosis Age At Onset No Information Payers Payer name Insurance type Covered alliance party ID [id number] Social History Type Description Quantity Date [...]
--- OUTSIDE RECORDS SUMMARY | 2025-01-01 00:35 | XMS_ITS | Clinical Summary ---
Author Organization [facility] [address] Address [address] [place] [address] Care Team Providers Care Equine Pharmacology Technician Name Role Phone Sadi Newberry MD Primary Care Provider Mayo Randhawa MD Unavailable [phone] Allergies Active Allergy Reactions Criticality Noted Date [...] artery disease of n ative artery of [place] heart with stable angina pectoris 05/16/2018 Hypertension associated with diabetes 12/19/2017 Cryptogenic stroke 12/19/2017 Hyperlipidemia 12/19/2017 Essential hypertension 12/19/2017 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 PAC (premature atrial contraction) 12/19/2017 Encounters Date Type Department Care Team Description 12/18/2024 Results Follow-Up [facility] Cardiology [address] [facility] [address] [place], [place] [address] [place] [address] Cristian Griffith MD 12/16/2024 11:00 AM CDT Ancillary Procedure [facility] Vascular and Vein Surgery at [address] [place] [address] Left carotid bruit 12/13/2024 11:45 AM CDT Office Visit [facility] Cardiology at [address] [place] [phone] Cristian Griffith MD Coronary artery disease of [place] artery of [place] heart with stable angina pectoris (Primary Dx); Hyperlipidemia associated with type 2 diabetes mellitus (HCC); Hypertension associated with diabetes (HCC); Mitral valve mass; Left carotid bruit 12/13/2024 Telephone [facility] Medical [facility] Cardiology [address] 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 Gender Identity Not on file Sexual Orientation Not on file Obstetrics History Last Filed Vital Signs Vital Sign Reading Time Taken Comments Blood Pressure 112/74 12/13/2024 11:51 AM CDT Pulse 70 12/13/2024 11:51 AM CDT Temperature 36.4 C (97.6 F) 07/02/2022 4:32 PM CDT Respiratory Rate 18 11/29/2023 11:50 AM CARRIER PACKER Oxygen Saturation 98% 12/13/2024 11:51 AM CDT [...] bruit LIPID PANEL Routine 09/04/2024 7:49 AM CARRIER PACKER BASIC METABOLIC PANEL Routine 05/19/2023 7:13 AM CDT Mitral valve mass from Last 3 Months or Most Recently Relevant to Health Maintenance Results * US Carotids Duplex Bilateral (12/16/2024 11:16 AM CDT) Anatomical Region Laterality Modality Vascular Bilateral Ultrasound 12/16/2024 10:4 6 AM CDT Narrative 12/18/2024 2:37 PM CDT Vascular & Vein Surgery [address] [place] [address] Carotid Duplex Ultrasound Report Patient Name: BROWN WHITE A : 1945 (79y 8m) Study Date: 12/16/2024 10:46:51 AM Gender: M Ornament Setter: JAMI Location: [facility] Ref Provider: CRISTIAN GRIFFITH Quality: Adequate Order [...] MD - 12/18/2024 Vascular & Vein Surgery [address] [place] [address] Carotid Duplex Ultrasound Report Patient Name: BROWN WHITE A : 1945 (79y 8m) Study Date: 12/16/2024 10:46:51 AM Gender: M Ornament Setter: Location: [facility] Provider: CRISTIAN GRIFFITH Quality: Adequate Order Provider: [...] * (ABNORMAL) Lipid panel (09/04/2024 7:49 AM CARRIER PACKER) Pathologist [facility] SCRIBED Cholesterol, Total 217(A) 0 - 200 EXTERNAL LAB SCRIBED HDL 65 40 - 100 EXTERNAL LAB SCRIBED LDL 129(A) 0 - 100 EXTERNAL LAB SCRIBED Triglycerides 123 0 - 150 EXTERNAL LAB Blood 09/04/2024 7:49 AM CARRIER PACKER Historical Provider LAB BLOOD ORDERABLES Edith l [...] LAB BLOOD ORDERABLES Final Result [facility] [address] [place] [address] from Last 3 Months or Most Recently Relevant to Health Maintenance Insurance [email or web address] MEDICARE PPO [email or web address] MEDICARE PPO [employer] CHOICE MEDICARE PPO Care Teams Equine Pharmacology Technician Relationship Specialty Start Date End Date Sadi Newberry MD [address] [place] [address] PCP - General Family Medicine 11/23/18 Mayo Randhawa MD [address] [place] [address] Consulting Physician Cardiothoracic Surgery 11/22/23
--- OUTSIDE RECORDS SUMMARY | 2025-01-01 00:35 | XMS_ITS | Encounter Summary ---
Author Organization [facility] Address [address] [place] [address] Care Team Providers Care Red Hat Open Stack Administrator Name Role Phone Sadi Newberry MD Primary Care Provider Mayo Randhawa MD Unavailable [phone] Encounter Details Date Type Department Care Team (Late st Contact Info) Description 12/18/2024 Results Follow-Up [facility] Medical Group Cardiology [address] [address] Steve Porter MD [address] [place] [address] [place] [address] Social History Tobacco Use Types Packs/Day Years Used Date Smoking Tobacco: Former Cigarettes 0.8 16 0 12/19/1972 - 12/20/1987 Smokeless Tobacco: Never Alcohol Use Standard Drinks/Week Comments Yes 15 (1 standard drink = 0.6 oz pu re alcohol) Sex and Gender Information Value Date Recorded Sex Assigned at Not on file Legal Sex Male 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
--- OUTSIDE RECORDS SUMMARY | 2025-01-01 00:35 | XMS_ITS | Referral Summary ---
Author Organization [facility] [address] [place] [address] Address [address] [facility] [address] [place] [address] Care Team Providers Care Curator Of Manuscripts Name Role Phone Sadi Newberry MD Primary Care Provider Mayo Randhawa MD Unavailable Encounters Date Type Department Care Team Description 12/18/2024 Results Follow-Up [facility] Group Cardiology [address] [facility] [address] [place] [phone] Cristian Griffith MD 12/16/2024 11:00 AM CDT Ancillary Procedure [facility] Group Vascular and Vein Surgery at [address] [place] [address] Left carotid bruit 12/13/2024 Telephone [facility] Cardiology [address] [place] [address] [address] [place] [address] Cristian Griffith MD 12/13/2024 11:45 AM CDT Office Visit [facility] Group Cardiology at [address] [place] [address] Cristian Griffith MD Coronary artery disease of [place] artery of [place] heart with stable angina pectoris (Primary Dx); [...] artery disease of n ative artery of [place] heart with stable angina pectoris 05/16/2018 Hypertension [...] on file Legal Sex Male 12:16 PM 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 Gender Identity Not on file Sexual Orientation Not on file Last Filed Vital Signs Vital Sign Reading Time Taken Comments Blood Pressure 112/74 12/13/2024 11:51 AM CDT Pulse 70 12/13/2024 11:51 AM CDT Temperature 36.4 C (97.6 F) 07/02/2022 4:32 PM CDT Respiratory Rate 18 11/29/2023 11:50 AM 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 DIRECTOR Oxygen Saturation 98% 12/13/2024 11:51 AM CDT [...] bruit LIPID PANEL Routine 09/04/2024 7:49 AM 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 DIRECTOR BASIC METABOLIC PANEL Routine 05/19/2023 7:13 AM CDT Mitral valve mass from Last 3 Months or Most Recently Relevant to Health Maintenance Results * US Carotids Duplex Bilateral (12/16/2024 11:16 AM CDT) Anatomical Region Laterality Modality Vascular Bilateral Ultrasound 12/16/2024 10:4 6 AM CDT Narrative 12/18/2024 2:37 PM CDT Vascular & Vein Surgery [address] [place] [address] Carotid Duplex Ultrasound Report Patient Name: BROWN WHITE A : 1945 (79y 8m) Study Date: 12/16/2024 10:46:51 AM Gender: M Electrolysis Operator: Location: [facility] Ref Provider: CRISTIAN GRIFFITH Quality: [...] MD - 12/18/2024 Vascular & Vein Surgery [facility] [place] [address] Carotid Duplex Ultrasound Report Patient Name: BROWN WHITE A : 1945 (79y 8m) Study Date: 12/16/2024 10:46:51 AM Gender: M Electrolysis Operator: JAMI Location: [facility] Ref Provider: CRISTIAN GRIFFITH Quality: Adequate [...] Adolfo Carlson MD 12/18/2024 1:45:19 PM CDT Crisitan Griffith MD IM US PROCEDURES Final R esult * (ABNORMAL) Lipid panel (09/04/2024 7:49 AM 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 DIRECTOR) [facility] SCRIBED Cholesterol, Total 217(A) 0 - 200 EXTERNAL LAB SCRIBED HDL 65 40 - 100 EXTERNAL LAB SCRIBED LDL 129(A) 0 - 100 EXTERNAL LAB SCRIBED Triglycerides 123 0 - 150 EXTERNAL LAB Blood 09/04/2024 7:49 AM 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 DIRECTOR Historical Provider LAB BLOOD ORDERABLES Edith l Result EXTERNAL LAB * (ABNORMAL) Basic metabolic panel (05/19/2023 7:13 AM CDT) Pathologist [facility] Glucose 129(H) 65 - 99 mg/dL [facility] [...] LAB BLOOD ORDERABLES Final Result [facility] [address] [place] [address] from Last 3 Months or Most Recently Relevant to Health Maintenance Insurance HU[employer] CHOICE MEDICARE PPO HU[employer]NA CHOICE MEDICARE PPO HU[employer] CHOICE MEDICARE PPO Care Teams Curator Of Manuscripts Relationship Specialty Start Date End Date Sadi Newberry MD [address] [place] [address] PCP - General Family Medicine 11/23/18 Mayo Randhawa MD [address] [place] [address] Consulting Physician Cardiothoracic Surgery 11/22/23
--- OUTSIDE RECORDS SUMMARY | 2025-01-01 00:35 | XMS_ITS | Clinical Summary ---
Author Organization [facility] Address [facility] [place] [address] Care Team Providers Care Box Printer Name Role Phone Unavailable Primary Care Provider Unavailabl e Social History Tobacco Use Types Packs/Day Years Used Date Smoking Tobacco: Never Assessed Sex and Gender Information Value Date Recorded Sex Assigned at Not on file Legal Sex Male 10:23 PM PHARMACY SPECIALIST Gender Identity Not on file Sexual Orientation [...]
--- NOTE | 2025-01-01 06:59 | WPDHPUPDATE1 ---
History and Physical Update Update Date/Time: 01/01/25 06:59 Patient seen and examined in pre-operative holding area. No interval change in medical history or symptoms. Patient recalls previous discussion of benefits and alternatives to procedure. Continues to desire to proceed with right endoscopic possible open carpal tunnel release , right cubital tunnel release, right middle and ring a1 benita release and excision back melanoma in situ. Reviewed procedure, post-op expectations and risks including but not limited to bleeding, infection, injury to tendon/nerve/vessel, decreased hand function, stiffness, RSD, recurrence, no change or worsening of symptoms. I discussed the possible use of assistants and their participation in the case. Patient stated understanding and signed the consent form wishing to proceed.
--- NOTE | 2025-01-01 07:00 | P.OP_ITS ---
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 The patient signed the consent form. PROCEDURE IN DETAIL:The patient taken back to OR on the stretcher in supine position. Time out performed with anesthesia, surgeon and staff agreeing on patient's name site and surgery to be performed SCDs were placed on the lower extremities and inflated. A tourniquet was placed on {right} upper extremity and antibiotics given IV After anesthesia administered sedation I injected {10}cc 1%lido with epi and 0.5% marcaine plain at the operative sites for the hand and wrist The?{right upper extremity}?was prepped and draped in sterile fashion the??{right upper extremity} was? exsanguinated with Esmarch bandage and tourniquet inflated to 250mmHg I made a transverse incision in the {right} volar distal wrist crease through skin and dermis with 15 blade scalpel.? Littler scissors spread down to antebrachial fascia. A small incision was made in antebrachial fascia allowing access to Carpal tunnel. I proceeded with sequential dilation staying in line with the ring finger and hugging the hook of the hamate.? I then used the synovial elevator to free any adhesions from the underside of the transverse carpal ligament. Next I was able to insert the Microaire endoscopic carpal tunnel device with direct visualization of the transverse fibers on the monitor and proceeded with complete segmental retrograde release of the ligament in its entirety.? I irrigated with normal saline and closed with 4-0 monocryl for dermis and subcuticular closure. Next I made an incision over the right middle finger A1 benita through skin and dermis with a 15 blade scalpel. Littler scissors were used to spread down to the A1 benita. The A1 benita was identified and initially incised with a 15 blade scalpel. Littler scissors were used to spread above and below it prox imally and distally and completed the transection entirely. Ragnell retractors were used withdraw the FDS and FDP tendons for inspection. The tendons were free of masses and synovitis and gliding smoothly in the sheath without crepitus or triggering. I irrigated with normal saline and closure with 4-0 chromic. Next I made an incision over the right ring finger A1 benita through skin and dermis with a 15 blade scalpel. Littler scissors were used to spread down to the A1 benita. The A1 benita was identified and initially incised with a 15 blade scalpel. Littler scissors were used to spread above and below it proximally and distally and completed the transection entirely. Ragnell retractors were used withdraw the FDS and FDP tendons for inspection. The tendons were free of masses and synovitis and gliding smoothly in the sheath without crepitus or triggering. I irrigated with normal saline and closure with 4-0 chromic. I next proceeded with making a longitudinal incision between two heads for flexor carpi ulnaris at end of {right} cubital tunnel with 15 blade scalpel.? Littler scissors were used to spread down to FCU fascia.? An incision was made in FCU fascia and ulnar nerve identified exiting cubital tunnel.? I proceeded with complete retrograde release of the cubital tunnel including 7cm proximal for the intermuscular septum.? The nerve appeared healthy with visible vaso nervorum.? There was no subluxation on full elbow range of motion. ? I irrigated with normal saline and closure with 4-0 monocryl for dermis and subcuticular. The incisions were covered with Dermabond for the wrist and elbow and xeroform for the palm then 4x4s, khoa, and a volar wrist and posterior elbow splint for patient safety, security and comfort and secured with maris bandages after the tourniquet was let down noting the hand was warm and well perfused.? Next the patient was rolled in the left lateral decubitus position exposing the skin lesion site his right mid back. I proceeded with injecting 5 cc of 1% lidocaine with epinephrine and 0.5% Marcaine plain for local anesthesia. I proceeded with making an elliptical incision around this lesion with 5 mm margins including extra skin superiorly and inferiorly for expected dog-ear management. I widely undermined the skin edges. I irrigated with normal saline and hemostasis with Bovie. I closed with 3-0 Vicryl and 3-0 nylon. The diameter of excision with margins was 1.8 cm. The length of closure was 2.6 cm a dressing of Mastisol, Steri-Strips, 4 x 4 and pressure dressing was applied. The patient was returned to the supine position. Patient was awaken from anesthesia and transferred to recovery in stable condition Complications - none EBL- 3cc Disposition - home in stable conditions Danelle Gonzalez PA-C was essential for positioinng, retraction, closure and dressing placement [facility] Billing Surgery - Charge Forward: Surgery Billing ([id number] same for danelle adding modifier )
[2025-01-01 11:50] VITALS: BMI 23.8
[2025-01-01] MEDS: LACTATED RINGERS 1,000 ML 30 ML IV CONT (11:50)
[2025-01-01 12:03] LABS: Glucose Point of Care 128 mg/dl (65-105)
--- NOTE | 2025-01-01 12:10 | P.PNAN_ITS ---
Anes - Initial Pre Proc Eval Procedure: Operation Date: 01/01/25 13:15 Proposed Procedures p Right Endoscopic Carpal Tunnel Release Possible Open, Right Cubital Tunnel Release - Julius Wallace MD s Right Middle and Ring Finger A-1 Sherlyn Release - Julius Wallace MD s Excision of Melanoma Right Midback - Julius Wallace MD Date/Time: 01/01/25 12:10 Surgeon: Julius Wallace MD Pre Op Diagnosis: rt carpal and cubital tunnel syn Patient Data Age: 79 Gender: M Height: 1.68 m Weight: 66.9 kg Allergies Allergy/AdvReac Type Severity Reaction Status Date / Time No Known Allergies Allergy Verified 01/01/25 12:05 Home Medications ?Medication ?Instructions ?Recorded ?Confirmed ?Type multivitamin 1 tablet PO DAILY 10/29/19 01/01/25 History lancets #200 ea 06/27/23 12/18/24 Rx blood-glucose meter #1 ea 08/07/23 12/18/24 Rx blood glucose control, low (True #1 ea 09/13/23 12/18/24 Rx Metrix Level 1 solution) coQ10 (ubiquinol) 200 mg capsule 200 mg PO DAILY 10/10/23 01/01/25 History finasteride 1 mg tablet 1 mg PO DAILY 10/16/23 01/01/25 History indapamide 2.5 mg tablet 2.5 mg PO QAM #90 tabs 05/17/24 01/01/25 Rx metformin 500 mg tablet 500 mg PO BID #180 tabs 08/13/24 01/01/25 Rx amlodipine 5 mg-benazepril 20 mg 1 cap PO QAM #100 caps 10/16/24 01/01/25 Rx capsule alcohol swabs (DropSafe Alcohol See Rx Instructions .Route 12/10/24 12/18/24 Rx Prep Pads) .COMPLEX #100 swabs aspirin 81 mg tablet,delayed 81 mg PO EVERY OTHER DAY 12/18/24 01/01/25 History release (Adult Low Dose Aspirin) blood sugar diagnostic (True #100 ea 12/18/24 Rx Metrix Glucose Test Strip) blood-glucose meter (True Metrix #1 ea 12/18/24 Rx Air Glucose Meter) lancets 33 gauge (TRUEplus Lancets) #100 ea 12/18/24 Rx omeprazole 20 mg capsule,delayed 20 mg PO DAILY PRN REFLUX 12/18/24 01/01/25 History release pitavastatin calcium 2 mg tablet 2 mg PO QAM #90 tabs 12/26/24 01/01/25 Rx (Livalo) Laboratory Tests 01/01/25 11:58 POC Capillary Glucose 128 H mg/dl (65-105) Patient hx anesthesia problems: post op nausea/vomiting Family hx anesthesia problems: none Results Review: All pre-operative results and documents have been reviewed as part of the pre- operative evaluation. [facility] Past Medical History Medical History History of right inguinal hernia GERD (gastroesophageal reflux disease) Hyperlipidemia Cryptogenic stroke Pericarditis Coronary artery disease Diastolic dysfunction Echocardiogram 03/2022: Mild concentric left ventricular wall hypertrophy, normal ventricular size, normal function with EF of 60%, grade 1 diastolic dysfunction, mild left atrial enlargement, small echogenic mass at the side of the anterior mitral valve leaflet cannot rule out healed vegetation BPH with urinary obstruction ROSINA (obstructive sleep apnea) Elevated PSA Essential (primary) hypertension Mitral valve mass (~2017) Noted on multiple echocardiograms measuring 0.6 x 0.7 cm on the tip of the anterior mitral valve leaflet. Not visualized on the cardiac MRI March 2018 Type 2 diabetes mellitus without complication, without long-term current use of insulin Surgical History Surgical History History of cardiac catheterization (01/2018) RCA tortuous with minimal luminal irregularities small to medium-sized ramus branch with an ostial stenosis of 50% H/O umbilical hernia repair (2016) With mesh placement. Family History Family History Father Diabetes mellitus Family history of lung disease Hypertension Family history of chronic obstructive pulmonary disease Family history of type 2 diabetes mellitus Mother Hypertension Social History Social History Social History: He is . They have 2 children and no pets. Code status: Full code Surrogate decision maker: Meena () Smoking packs per day: 1 Smoking cigarettes per day: 20.0 Years smoked: 20 Smoking pack-years: 20.00 Smoking status: Former smoker Tobacco type: cigarettes Second hand tobacco smoke exposure: No Smoking end date: 03/25/88 Alcohol intake: current Drinks per week: 14 Substance use: never Substance use type: does not use Do You Feel Safe in your Home?: Yes Lack of Transportation: No Lack of Food: Never True Current Housing: I Have Housing Concerned About Future Housing: No Difficulty Paying Gas/Electric Bills: No Difficulty Paying for Meds: No Currently Unemployed: No Education: Associate Degree Difficulty w/ Childcare or Family Care: No Living arrangements: with family Additional living arrangements comments: Occupation/Education: retired Additional occupation/education comments: [employer] Gender identity (if verbalized by the patient): Male Sexual Orientation (if Verbalized by the Patient): Straight or Heterosexual Spiritual care concerns: No Anes - Eval Final PreProcedure Day of Procedure 01/01/25 12:10 Patient weight: normal Heart: regular rate and rhythm Lungs: clear to auscultation Airway: Mallampati scale class III Neurological: alert and oriented Last oral intake: >/= 8 hours ASA classification: III Emergent: no Anesthetic plan: proceed Anesthesia type and monitoring: general GIVS and standard monitoring Results Review: All pre-operative results and documents have been reviewed as part of the pre- operative evaluation. Informed Consent: The patient's anesthetic plan and its attendant risks and benefits were discussed with the patient/family/POA. Questions were solicited and answers provided to the satisfaction of the patient/family/POA.
[2025-01-01] MEDS: ceFAZolin 2 GM/D5W 50 ML 2 GM/50 ML BAG IVPB (13:41)
[2025-01-01] MEDS: LIDO 1%/EPINEPHRINE 1:100,000 50 ML VIAL 10 ML INFILTRATE (13:41)
[2025-01-01] MEDS: BUPivacaine HCL 0.5% PF 30 ML VIAL INFILTRATE (13:41)
[2025-01-01 14:38] VITALS: BP 111/60; PULSE 49; RESP 14; O2SAT 100
[2025-01-01 15:00] VITALS: BP 113/57; PULSE 53; RESP 14; O2SAT 97
[2025-01-01 15:14] LABS: Glucose Point of Care 102 mg/dl (65-105)
[2025-01-01 15:30] VITALS: BP 134/56; PULSE 50; RESP 14
== END 2025-01-01 15:37 | disposition home or self-care (01) ==
PROVIDERS: PCP Family Medicine; Visit Provider Plastic Surgery
PROC: 01N54ZZ Release Median Nerve, Percutaneous Endoscopic Approach (ICD-10-PCS; CPT 29848; principal; 2025-01-01 13:15)
PROC: (CPT 26055; 2025-01-01 13:15)
PROC: (CPT 64718; 2025-01-01 13:15)
DX: G56.01 Carpal tunnel syndrome, right upper limb (principal); G56.21 Lesion of ulnar nerve, right upper limb; M65.331 Trigger finger, right middle finger; M65.341 Trigger finger, right ring finger; L57.8 Other skin changes due to chronic exposure to nonionizing radiation; L90.5 Scar conditions and fibrosis of skin; C43.59 Malignant melanoma of other part of trunk; E78.5 Hyperlipidemia, unspecified; I11.0 Hypertensive heart disease with heart failure; I50.30 Unspecified diastolic (congestive) heart failure; N40.1 Benign prostatic hyperplasia with lower urinary tract symptoms; G47.33 Obstructive sleep apnea (adult) (pediatric); E11.9 Type 2 diabetes mellitus without complications; K21.9 Gastro-esophageal reflux disease without esophagitis; I31.9 Disease of pericardium, unspecified; I25.10 Atherosclerotic heart disease of native coronary artery without angina pectoris; Z79.84 Long term (current) use of oral hypoglycemic drugs; Z79.82 Long term (current) use of aspirin; Z98.890 Other specified postprocedural states; Z98.61 Coronary angioplasty status; Z87.891 Personal history of nicotine dependence; Z86.73 Personal history of transient ischemic attack (TIA), and cerebral infarction without residual deficits
CPT/HCPCS: 64718; 29848; 26055 ×2; 11602; 13101; 82948; 88305; A9270; J0690; J2004; J2704; J3010; J7120

== ENCOUNTER 2025-05-22 13:52 | Outpatient (CLI) | payer MEDICARE, SELFPAY ==
--- NOTE | ~2025-05-22 | MR_ITS ---
EXAMINATION: MR brain/brain stem wo con DATE: 05/22/2025 14:21 INDICATION: Headache TECHNIQUE: Magnetic resonance imaging (MRI) of the brain and brainstem was performed without intravenous contrast. Sequences included sagittal and axial T1-weighted SE, axial diffusion-weighted FS SE, axial T2*-weighted GRE, axial T2-weighted FLAIR Propeller, and axial T2-weighted Propeller. Apparent diffusion coefficient (ADC) maps were created. COMPARISON: MRI dated 09/16/2021. FINDINGS: Brain parenchymal volume is normal for age. There are scattered mild periventricular and subcortical white matter changes, most likely related to small vessel ischemic disease (microangiopathy). No acute hemorrhage, infarction, mass or mass effect. Midline sagittal images are unremarkable. St ructures of the posterior fossa including 7/8th cranial nerve complexes are normal. Orbits are symmetric. No abnormality of the paranasal sinuses. IMPRESSION: 1. No acute intracranial abnormality. Reviewed, dictated and finalized at location O.
== END 2025-05-22 13:53 | disposition home or self-care (01) ==
LOC: MICIMG 13:53
PROVIDERS: PCP Family Medicine
DX: R51.9 Headache, unspecified (principal); R42 Dizziness and giddiness
CPT/HCPCS: 70551

== ENCOUNTER → 2025-08-04 16:00 | Outpatient (REF) | payer MEDICARE, SELFPAY ==
--- OUTSIDE RECORDS SUMMARY | 2007-03-23 07:32 | XMS_ITS | Continuity of Care Document ---
Author Organization [facility] Address [address] [place] [phone] Phone Care Team Providers Care Bearing Ring Assembler Name Role Phone Kash Sanchez MD Unavailable Unavailable Medications Medication Instructions Dosage Effective Dates (start - stop) Status Comments ANUSOL 51%SUPP.RECT Use 1 rectally two times a day for 10 days for rectal pain/swelling. - Active Celebrex 100 mg TABLET take as needed - Active Crestor 10 mg Tab Take once daily - Active indapamide 1.25 mg Tab take 1 every day - Active MONOPRIL 10 MGTABLET Take once daily - Act carol Procedures Procedure Date ASC Facility Charge Colonoscopy Flex; W/remov Les- 07 Colonoscopy Flex; W/bx 1/mx Basic Metabolic Panel Advance Directives Directive Yes / No Effective Date File Name No Information Encounters Encounter Description Practice Location Reason(s) For Visit Diagnoses Date Provider Providers Copied on Encounter [facility], [address] [place] [address], [id number] tel:[phone] [address] [place] [address] [facility] Center No Information Daniel Hewitt. [address] [place] [address], [id number] , [place]. tel:[phone] Referring Provider: Ramesh Nowak MD, [address] [place], [address]. tel:[phone] [facility], [address] [place] [address], [id number] tel:[phone] [facility] No Information 7 Daniel Hewitt. [address] [place] [address], [id number] , . tel:[phone] Referring Provider: Ramesh Nowak MD, [address] [place], [address]. tel:[phone] [facility], [address] [place] [address], [id number] tel:[phone] [address] [place] [address] [facility] No Information 7 Daniel Hewitt. [address] [place] [address], [id number] , [place]. tel:[phone] Referring Provider: Ramesh Nowak MD, [address] [place], [address]. tel:[phone] Family History Family Member Type Diagnosis Age At Onset No Information Payers Payer name Insurance type Covered constitution party ID [id number] Social History Type Description Quantity Date Captured Comments Sex Male Smoking Status No Information Chief Complaint And Reason For Visit No Information Reason For Referral Reason For Referral No Information History Of Present Illness Encounter Date Complaint History Of Prese nt Illness No Information Functional Status Date Functional Assessmen t No Information Instructions Date Instruction Additional Infor mation No Information Assessments Type Assessment Date No Information Patient Care Teams Name Effective Dates (start - stop) Status Members No Information
--- NOTE | 2025-08-04 16:00 | S_PTH ---
PATIENT: Brown Gifford LOC: [facility] U#:[id number] AGE/SX: 80/M ROOM: RE08/04/[address]: Julius Wallace MD : 1945 BED: DIS: SPEC #: [id number] RECD: 08/05/25 07:23 STATUS: TALITA RELei #: [id number] LISA: 08/04/25 16:[address]: Julius Wallace DEPT: [facility] Surgical RECD BY: Terri Chapman ENTERED: 08/05/25 07:24 SP TYPE: Surgical OTHR DR: Sadi Nebwerry MD Tissues: A - Melanoma Procedures: Hematoxylin and Eosin Stain Lapoint/Tracey A Gross and Microscopic Level 4 SOX 10
--- OUTSIDE RECORDS SUMMARY | 2025-08-04 16:03 | XMS_ITS | Clinical Summary ---
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 Gender Identity Not on file Sexual Orientation Not on file Plan of Treatment Health Maintenance Due Date Last Done Comments Hepatitis C 1963 DTaP, Tdap and Td Vaccines ( 1 - Tdap) 1965 Pneumococcal Vaccine: 50+ Ye ars (1 of 1 - PCV) 1996 Zoster Vaccines (1 of 2) 1996 RSV Immunization or 60+ Years (1 - 1-dose 75+ series) 2021 COVID-19 Vaccine ( - 2024-2 6 season) 2025 Influenza Adult (#1) 2025 Hepatitis A Vaccines Aged Out No long er eligible based on patient's age to complete this topic Meningococcal B Vaccine Aged Out No l onger eligible based on patient's age to complete this topic Meningococcal Vaccine Aged Out No gaby levi eligible based on patient's age to complete this topic RSV Immunizations Under 20 Months Aged Out No longer eligible based on patient's age to complete this topic
--- OUTSIDE RECORDS SUMMARY | 2025-08-04 16:03 | XMS_ITS | Encounter Summary ---
Author Organization [facility] Healthcare Address [address] [place] [address] Care Team Providers Care Post Hole Digging Machine Operator Name Role Phone Daljit Atkinson DO Primary Care Provider [phone] Sadi Newberry MD Primary Care Provider Mayo Randhawa MD Unavailable [phone] Encounter Details Date Type Department Care Team (Late st Contact Info) Description 12/21/2017 Orders Only [facility] [place] Management [address] [place] [id number] Scanning, Provider Social History Tobacco Use Types Packs/Day Years Used Date Smoking Tobacco: Former Cigarettes Q uit: 12/20/1987 Smokeless Tobacco: Never Alcohol Use Standard Drinks/Week Comments Yes 15 (1 standard drink = 0.6 oz pu re alcohol) Sex and Gender Information Value Date Recorded Sex Assigned at Not on file Legal Sex Male 12:16 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 Gender Identity Not on file Sexual Orientation Not on file documented as of this encounter Plan of Treatment Not on file documented as of this encounter Procedures Procedure Name Priority Date/Time Associated Diagnosis Comments SCAN - LABS 12/21/2017 1:21 AM CDT SCAN - RADIOLOGY/IMAGING 12/20/2017 documented in this encounter Results * SCAN - LABS (12/21/2017 1:21 AM CDT) us Provider Scanning Final Result * SCAN - RADIOLOGY/IMAGING (12/20/2017) Anatomical Region Laterality Modality Other us Provider Scanning Edited Result - Final documented in this encounter Visit Diagnoses Not on filedocumented in this encounter Care Teams Post Hole Digging Machine Operator Relationship Specialty Start Date End Date Daljit Atkinson DO PCP - General 10/24/11 11/22/18 Sadi Newberry MD [address] [place] [address] PCP - General Family Medicine 11/23/18 Mayo Randhawa MD [address] [place] [address] Consulting Physician Cardiothoracic Surgery 11/22/23 documented as of this encounter
--- OUTSIDE RECORDS SUMMARY | 2025-08-04 16:03 | XMS_ITS | Encounter Summary ---
Author Organization [facility] Healthcare Address [address] [place] [address] Care Team Providers Care Middle [employer] Guidance Counselor Name Role Phone Daljit Atkinson DO Primary Care Provider [phone] Sadi Newberry MD Primary Care Provider Mayo Randhawa MD Unavailable Encounter Details Date Type Department Care Team (Late st Contact Info) Description 12/06/2017 Orders Only [facility] [place] [facility] [place] Management [address] [place] [address] Scanning, Provider Social History Tobacco Use Types Packs/Day Years Used Date Smoking Tobacco: Never Assessed Sex and Gender Information Value Date Recorded Sex Assigned at Not on file 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 Sex 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 Gender Identity Not on file Sexual Orientation Not on file documented as of this encounter Plan of Treatment Not on file documented as of this encounter Procedures Procedure Name Priority Date/Time Associated Diagnosis Comments SCAN - LABS 12/06/2017 CARDIOLOGY DOCUMENT SCAN 12/06/2017 documented in this encounter Results * SCAN - LABS (12/06/2017) us Provider Scanning Final Result * Cardiology Document Scan (12/06/2017) Anatomical Region Laterality Modality Other us Provider Scanning CV CARDIAC SERVICES PROCEDURES Final Result documented in this encounter Visit Diagnoses Not on filedocumented in this encounter Care Teams Middle [employer] Guidance Counselor Relationship Specialty Start Date End Date Daljit Atkinson DO PCP - General 10/24/11 11/22/18 Sadi Newberry MD [address] [place], [place] [id number] PCP - General Family Medicine 11/23/18 Mayo Randhawa MD [address] [place] [address] Consulting Physician Cardiothoracic Surgery 11/22/23 documented as of this encounter
--- OUTSIDE RECORDS SUMMARY | 2025-08-04 16:03 | XMS_ITS | Clinical Summary ---
Author Organization [facility] [address] Address [address] [place] [address] Care Team Providers Care Building Rental Superintendent Name Role Phone aSdi Newberry MD Primary Care Provider Mayo Randhawa MD Unavailable [phone] Allergies Active Allergy Reactions Criticality Noted Date [...] Metrix Glucose Test Strip strip 03/30/2024 Active aspirin 81 mg enteric coated tablet Take 1 tablet (81 mg total) by mouth daily 12/13/2024 Active pitavastatin calcium (LIVALO) 2 mg tablet Take 1 tablet (2 mg total) by mouth daily Active Active Problems Problem Noted Date Diagnosed Date Left carotid bruit 12/13/2024 Palpitations 12/20/2022 History of COVID-19 09/15/2021 Hyperlipidemia associated with type 2 diabetes m ellitus 09/10/2019 Coronary artery disease of n ative artery of [place] heart with stable angina pectoris 05/16/2018 Hypertension associated with diabetes 12/19/2017 Cryptogenic stroke 12/19/2017 Hyperlipidemia 12/19/2017 Essential hypertension 12/19/2017 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 PAC (premature atrial contraction) 12/19/2017 Encounters Date Type Department Care Team Description 07/31/2025 Telephone [facility] Medicine Ophthalmology [address] [place] [address] Yuliana Anand MD new pt 05/30/2025 Telephone [facility] Cardiology [address] [place] [phone] Steve Porter MD 05/29/2025 9:00 AM CDT Office Visit [facility] Cardiology at [address] [place] [phone] Steve Porter MD Hypertension associated with diabetes (HCC) (Primary Dx); Hyperlipidemia associated with type 2 diabetes mellitus (HCC); Mitral valve mass; Coronary artery disease of [place] artery of [place] heart with stable angina pectoris from Last 3 Months Surgical History Surgery Date Site/Laterality Comments APPENDECTOMY HERNIA REPAIR PROSTATE SURGERY Urolift implant UMBILICAL HERNIA REPAIR 09/25/2023 - 10/25/2023 Medical History Medical History Date Comments Arrhythmia Stroke (HCC) 2007 Arthritis Diabetes mellitus Migraines Heart disease Hypertension Sleep apnea Mixed [...] on file Legal Sex Male 12:16 PM TISSUE PACKER Gender Identity Not on file Sexual Orientation Not on file Last Filed Vital Signs Vital Sign Reading Time Taken Comments Blood Pressure 134/70 05/29/2025 9:09 AM CDT Pulse 58 05/29/2025 9:09 AM CDT Temperature 36.4 C (97.6 F) 07/02/2022 4:32 PM CDT Respiratory Rate 18 11/29/2023 11:50 AM TISSUE PACKER Oxygen Saturation 98% 05/29/2025 9:09 AM CDT Inhaled Oxygen Concentration - - Weight 67.6 kg (149 lb) 05/29/2025 9:09 AM CDT Height 170.2 cm (5' 7) 05/29/2025 9:09 AM CDT Body Mass Index 23.34 05/29/2025 9:09 AM CDT Plan of Treatment Health Maintenance Due Date Last Done Comments Albumin Creatinine Ratio, Urine 1945 Depression Screening 1945 Fall Risk Assessment 1945 Hemoglobin A1C 1945 Hepatitis C Screening 1945 Dilated Eye Exam 1945 Foot Exam 1945 Hepatitis B Screening 1964 Abdominal Aortic Aneurysm (A AA) Screen 2011 Well Visit 65+ 2011 Zoster Vaccine (2 of 3) 09/18/2013 07/24/2013 Pneumococcal vaccine 65+ (2 of 2 - PCV) 07/24/2014 07/24/2013 eGFR 05/19/2024 05/19/2023, 09/07/2021 Covid-19 Vaccine (3 - 2024-2 6 season) 2025 12/21/2020, 11/30/2020 Influenza Vaccine (#1) 2025 07/24/2013 Lipid Panel 09/04/2025 09/04/2024, 11/24, 03/20/2023, Additional history exists DTaP/Tdap/Td Vaccine (2 - Td or Tdap) 09/10/2033 09/10/2023 Procedures Procedure Name Priority Date/Time Associated Diagnosis Comments LIPID PANEL Routine 09/04/2024 7:49 AM TISSUE PACKER BASIC METABOLIC PANEL Routine 05/19/2023 7:13 AM CDT Mitral valve mass from Last 3 Months or Most Recently Relevant to Health Maintenance Results * (ABNORMAL) Lipid panel (09/04/2024 7:49 AM TISSUE PACKER) SCRIBED Cholesterol, Total 217(A) 0 - 200 EXTERNAL LAB SCRIBED HDL 65 40 - 100 EXTERNAL LAB SCRIBED LDL 129(A) 0 - 100 EXTERNAL LAB SCRIBED Triglycerides 123 0 - 150 EXTERNAL LAB Blood 09/04/2024 7:49 AM TISSUE PACKER us Historical Provider LAB BLOOD ORDERABLES Edith l [...] 10.3 mg/dL [facility] Blood 05/19/2023 7:1 3 AM CDT 05/19/2023 7:14 AM CDT Narrative [facility] - 05/20/2023 7:23 AM CDT FASTING:YES FASTING: YES Luis Ramesh MD LAB BLOOD ORDERABLES Final Result [facility] [id number] [id number] from Last 3 Months or Most Recently Relevant to Health Maintenance Insurance [employer] MEDICARE PPO [employer] CHOICE MEDICARE PPO [employer] MEDICARE PPO Care Teams Building Rental Superintendent Relationship Specialty Start Date End Date Sadi Newberry MD [address] [place] [address] PCP - General Family Medicine 11/23/18 Mayo Randhawa MD [address] [place] [address] Consulting Physician Cardiothoracic Surgery 11/22/23
--- OUTSIDE RECORDS SUMMARY | 2025-08-04 16:03 | XMS_ITS | Encounter Summary ---
Author Organization [facility] Healthcare Address [address] [place] [address] Care Team Providers Care Bus Driver Supervisor Name Role Phone Daljit Atkinson DO Primary Care Provider [phone] Sadi Newberry MD Primary Care Provider Mayo Randhawa MD Unavailable Encounter Details Date Type Department Care Team (Late st Contact Info) Description 02/08/2018 Orders Only [facility] [place] Information Management [address] [place] [address] Scanning, Provider Social History Tobacco Use Types Packs/Day Years Used Date Smoking Tobacco: Former Cigarettes Q uit: 12/20/1987 Smokeless Tobacco: Never Alcohol Use Standard Drinks/Week Comments Yes 15 (1 standard drink = 0.6 oz pu re alcohol) Sex and Gender Information Value Date Recorded Sex Assigned at Not on file Legal Sex Male 12:16 PM 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 BURNER Gender Identity Not on file Sexual Orientation Not on file documented as of this encounter Plan of Treatment Not on file documented as of this encounter Procedures Procedure Name Priority Date/Time Associated Diagnosis Comments SCAN - LABS 02/08/2018 documented in this encounter Results * SCAN - LABS (02/08/2018) us Provider Scanning Final Result documented in this encounter Visit Diagnoses Not on filedocumented in this encounter Care Teams Bus Driver Supervisor Relationship Specialty Start Date End Date Daljit Atkinson DO PCP - General 10/24/11 11/22/18 Sadi Newberry MD [address] [facility] [address] [place] [address] PCP - General Family Medicine 11/23/18 Mayo Randhawa MD [address] [facility] [address] [place] [address] Consulting Physician Cardiothoracic Surgery 11/22/23 documented as of this encounter
--- OUTSIDE RECORDS SUMMARY | 2025-08-04 16:03 | XMS_ITS | Encounter Summary ---
Author Organization [facility] Healthcare Address [address] [place] [address] Care Team Providers Care Water Commissioner Name Role Phone Daljit Atkinson DO Primary Care Provider [phone] Sadi Newberry MD Primary Care Provider Mayo Randhawa MD Unavailable [phone] Encounter Details Date Type Department Care Team (Late st Contact Info) Description 01/23/2018 Orders Only [facility] [place] Health Information Management [address] [place] [address] Scanning, Provider Social History Tobacco Use Types Packs/Day Years Used Date Smoking Tobacco: Former Cigarettes Q uit: 12/20/1987 Smokeless Tobacco: Never Alcohol Use Standard Drinks/Week Comments Yes 15 (1 standard drink = 0.6 oz pu re alcohol) Sex and Gender Information Value Date Recorded Sex Assigned at Not on file Legal Sex Male 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 Gender Identity Not on file Sexual Orientation Not on file documented as of this encounter Plan of Treatment Not on file documented as of this encounter Procedures Procedure Name Priority Date/Time Associated Diagnosis Comments CARDIOLOGY DOCUMENT SCAN 01/22/2018 documented in this encounter Results * Cardiology Document Scan (01/22/2018) Anatomical Region Laterality Modality Other us Provider Scanning CV CARDIAC SERVICES PROCEDURES Edited Result - Final documented in this encounter Visit Diagnoses Not on filedocumented in this encounter Care Teams Water Commissioner Relationship Specialty Start Date End Date Yablonsky, Daljit B., DO PCP - General 10/24/11 11/22/18 Sadi Newberry MD [address] [facility] [address] [place], [place] [id number] PCP - General Family Medicine 11/23/18 Mayo Randhawa MD [address] [place] [address] Consulting Physician Cardiothoracic Surgery 11/22/23 documented as of this encounter
== END ==
LOC: ANHLAB 16:00
PROVIDERS: PCP Family Medicine; Visit Provider Plastic Surgery
DX: D03.59 Melanoma in situ of other part of trunk (principal)
CPT/HCPCS: 88305; 88342